=== PATIENT | female | born 1945 ===

== ENCOUNTER 2018-05-10 13:31 | Inpatient (IN) | payer MEDICARE, OTHER ==
[2018-05-10 13:55] VITALS: BMI 29.2
--- NOTE | 2018-05-10 14:09 | ED PDOC ---
Arrival/HPI - General Time Seen by Provider: 05/10/18 13:32 Historian: Patient - History of Present Illness Narrative History of Present Illness (Text): 05/10/18 14:00 72 year old female, whose past medical history includes, presents to the emergency department complaining of right shoulder pain s/p falling yesterday. Patient says she fell backwards yesterday, due to her legs giving out, and hurt her right shoulder. Denies head trauma or LOC. She notes that she has a chronic issue with her legs that has been worsening, she says her legs are not focally weak, but she gets tired after ambulating on them for a long time. Patient reports being treated by Dr. Clarke for iron deficiency/ anemia. She denies any weakness, numbness, or a tingling sensation in her legs. She denies fevers, chills, headache, dizziness, chest pain, shortness of breath, dyspnea on exertion, cough, abdominal pain, nausea, vomiting, diarrhea, back pain, neck pain, or any other complaint. PMD Dr. Brady 05/10/18 17:28 Time/Duration: 24 hours Symptom Course: Unchanged Activities at Onset: Light Context: Home Past Medical History - Provider Review Nursing Documentation Reviewed: Yes - Infectious Disease Hx of Infectious Diseases: None - Tetanus Immunization Tetanus Immunization: Unknown - Cardiac Hx Cardiac Disorders: Yes (A fib) Hx Congestive Heart Failure: Yes Hx Hypertension: Yes - Pulmonary Hx Respiratory Disorders: Yes Hx Asthma: Yes Hx Pneumonia: Yes Hx Respiratory Tract Infection: Yes - Neurological Hx Neurological Disorder: No - HEENT Hx HEENT Disorder: Yes (eyeglasses) - Renal Hx Renal Disorder: No - Endocrine/Metabolic Hx Diabetes Mellitus Type 2: Yes Hx Hypothyroidism: Yes - Hematological/Oncological Hx Blood Disorders: No - Integumentary Hx Dermatological Disorder: Yes Other/Comment: healed mid abd wound, right abd hernia noted,ble +1 edema dry discolored skin multiple scabs and discolorations and variscosities - Musculoskeletal/Rheumatological Hx Falls: No - Gastrointestinal Hx Gastrointestinal Disorders: Yes (ABDOMINAL PAIN,HERNIO RHAPPHY,CHOLEYCYSTECTOMY) Hx Gastroesophageal Reflux: Yes Other/Comment: pt has another right abd hernia no sx due to risk from afib - Genitourinary/Gynecological Hx Genitourinary Disorders: No Hx Urinary Tract Infection: Yes - Psychiatric Hx Substance Use: No - Surgical History Hx Cholecystectomy: Yes Other/Comment: abdominal hernia repair,defibrillator - Anesthesia Hx Anesthesia: Yes Hx Anesthesia Reactions: No Hx Malignant Hyperthermia: No - Suicidal Assessment Feels Threatened In Home Enviroment: No Family/Social History - Physician Review Nursing Documentation Reviewed: Yes Family/Social History: No Known Family HX Smoking Status: Smoker Currrent Status Unknown Hx Alcohol Use: No Hx Substance Use: No Hx Substance Use Treatment: No Allergies/Home Meds Allergies/Adverse Reactions: Allergies kiwi Allergy (Verified 05/10/18 13:55) CONGESTION poppyseed oil Allergy (Verified 05/10/18 13:55) RASH shellfish derived Allergy (Verified 05/10/18 13:55) ANAPHYLAXIS Home Medications: Home Meds Medication Instructions Recorded Confirmed Warfarin Sodium [Jantoven] 3 mg PO .THREE TIMES A WEEK 11/18/11 05/10/18 Tramadol HCl/Acetaminophen 1 tab PO QID PRN 11/05/14 05/10/18 [Tramadol-Acetaminophn 37.5-325] Warfarin Sodium [Coumadin] 4 mg PO .TUESDAY TO Tuesday11/05/14 05/10/18 Digoxin 250 mcg PO DAILY 11/08/14 05/10/18 Losartan [Cozaar] 100 mg PO DAILY 11/08/14 05/10/18 Metoprolol Succinate [Toprol Xl] 50 mg PO BRKDIN 01/05/15 05/10/18 Aspirin [Ecotrin] 81 mg PO DAILY 09/03/15 05/10/18 Metformin HCl [Glucophage] 500 mg PO BID 09/03/15 05/10/18 Omeprazole [Prilosec] 40 mg PO DAILY 09/03/15 05/10/18 Simvastatin 20 mg PO DAILY 09/03/15 05/10/18 Donepezil [Aricept] 10 mg PO HS 05/10/18 05/10/18 FLUoxetine [Prozac] 10 mg PO DAILY 05/10/18 05/10/18 Insulin Glargine,Hum.rec.anlog 40 unit SC BID 05/10/18 05/10/18 [Delia Martinez] Insulin Lispro [Humalog Kwikpen 10 unit SC TID 05/10/18 05/10/18 U-100] Review of Systems - Review of Systems Constitutional: absent: Fevers Eyes: absent: Vision Changes Respiratory: absent: SOB, Cough Cardiovascular: absent: Chest Pain Gastrointestinal: absent: Abdominal Pain, Diarrhea, Nausea, Vomiting Genitourinary Female: absent: Dysuria Musculoskeletal: Other (right shoulder pain ). absent: Back Pain, Neck Pain Skin: absent: Rash Neurological: absent: Headache, Dizziness Psychiatric: absent: Anxiety Physical Exam Vital Signs Reviewed: Yes Vital Signs Temp Pulse Resp BP Pulse Ox 05/10/18 13:52 97.5 F L 77 14 136/68 100 Temperature: Afebrile Blood Pressure: Normal Pulse: Regular Respiratory Rate: Normal Appearance: Positive for: Well-Appearing, Non-Toxic, Comfortable Pain Distress: None Mental Status: Positive for: Alert and Oriented X 3 - Systems Exam Head: Present: Atraumatic, Normocephalic Pupils: Present: PERRL Extroacular Muscles: Present: EOMI Conjunctiva: Present: Normal Mouth: Present: Moist Mucous Membranes Neck: Present: Normal Range of Motion Respiratory/Chest: Present: Clear to Auscultation, Good Air Exchange. No: Respiratory Distress, Accessory Muscle Use Cardiovascular: Present: Normal S1, S2, Other (irregularly irregular). No: Murmurs Abdomen: No: Tenderness, Distention, Peritoneal Signs Back: Present: Normal Inspection. No: Midline Tenderness Upper Extremity: Present: Tenderness (right shoulder tenderness). No: Cyanosis, Edema, Normal ROM (decresed ROM to her right shoulder ) Lower Extremity: Present: Other (decreased 4/5 strength bilaterlally lower extremity). No: Edema Neurological: Present: GCS=15, CN II-XII Intact, Speech Normal, Other (ambulated into stretcher) Skin: Present: Warm, Dry, Normal Color. No: Rashes Psychiatric: Present: Alert, Oriented x 3, Normal Insight, Normal Concentration Medical Decision Making ED Course and Treatment: 05/10/18 14:12 Impression: 72 year old female who presents to the emergency department complaining of right shoulder pain. Plan: -- Labs -- Shoulder X-ray -- Reassess and disposition Prior Visits: Notes and results from previous visits were reviewed. Progress Notes: 05/10/18 17:12 Shoulder xray negative. Patient reports 2 month history of worsening fatigue when ambulating. Spoke to Dr. Dejesus and Dr. Clarke. Requesting observation and neuro evaluation. 05/10/18 17:14 Shoulder X-ray reviewed, shows: IMPRESSION: Normal radiographs of the right shoulder. 05/10/18 18:38 - Lab Interpretations I have reviewed the lab results: Yes - Scribe Statement The provider has reviewed the documentation as recorded by the Scribe Halle Galvez Provider Scribe Attestation: All medical record entries made by the Scribe were at my direction and personally dictated by me. I have reviewed the chart and agree that the record accurately reflects my personal performance of the history, physical exam, medical decision making, and the department course for this patient. I have also personally directed, reviewed, and agree with the discharge instructions and disposition. Disposition/Present on Arrival - Present on Arrival Any Indicators Present on Arrival: No History of DVT/PE: No History of Uncontrolled Diabetes: No Urinary Catheter: No History Surgical Site Infection Following: None - Disposition Have Diagnosis and Disposition been Completed?: Yes Diagnosis: Fall Disposition: HOSPITALIZED Disposition Time: 17:18 Patient Plan: Observation Patient Problems: Current Active Problems Problem Status Onset Fall Acute Condition: FAIR
[2018-05-10 16:01] LABS: BASO # 0.01 K/mm3 (0.0-2.0); BASO % 0.2 % (0.0-3.0); EOS # 0.1 (0.0-0.7); EOS % 1.1 % (1.5-5.0); GRAN # 3.06 (1.4-6.5); GRAN % 69.8 % (50.0-68.0); HEMOGLOBIN 10.9 g/dL (12.0-16.0); LYMPH % 22.1 % (22.0-35.0); MEAN CORPUSCULAR HEMOGLOBIN 27.7 pg (25.0-35.0); MEAN CORPUSCULAR HGB CONC 32.5 g/dl (31.0-37.0); MONO # 0.3 (0.1-0.6); MONO % 6.8 % (1.0-6.0); RBC 3.94 10^6/uL (3.5-6.1); RED CELL DISTRIBUTION WIDTH 15.8 % (11.5-14.5); WHITE BLOOD COUNT 4.4 10^3/uL (4.5-11.0)
[2018-05-10 16:11] LABS: ALBUMIN 3.5 g/dL (3.0-4.8); ALT/SGPT 39 U/L (7-56); AST/SGOT 41 U/L (14-36); BLOOD UREA NITROGEN 17 mg/dL (7-21); CALCIUM 10.3 mg/dL (8.4-10.5); GFR NON-AFRICAN AMERICAN > 60
--- NOTE | 2018-05-10 17:08 | RAD ---
Date of service: 05/10/2018 PROCEDURE: Radiographs of the Right Shoulder HISTORY: shoulder pain COMPARISON: No prior. FINDINGS: BONES: Normal. No fracture. JOINTS: Normal. Glenohumeral and acromioclavicular joints preserved. No osteoarthritis. SOFT TISSUES: Normal. OTHER FINDINGS: None. IMPRESSION: Normal radiographs of the right shoulder.
[2018-05-10 18:53] LABS: INR 2.59; PROTHROMBIN TIME 30.1 SECONDS (9.4-12.5)
--- NOTE | 2018-05-10 21:45 | HP ---
DATE OF EXAM: 05/10/2018 HISTORY OF PRESENT ILLNESS: The patient is a 72-year-old who was seen by Dr. Clarke and she is being followed by her for her anemia, iron infusion. The patient states that yesterday when she went home, she felt very weak and she fell at home because her legs felt very weak and she lost her balance and she fell on the right side of her body and since then her right shoulder is hurting. She does complain of generalized weakness more so in the legs. PAST MEDICAL HISTORY: The patient's significant past medical history of: 1. Hypertension. 2. Chronic AFib. 3. History of morbid obesity. 4. Mediastinal lymphadenopathy, had CT-guided biopsy was unremarkable for malignancy. 5. History of cardiac cirrhosis. 6. Chronic anemia. PAST SURGICAL HISTORY: Significant for: 1. Partial small bowel resection. 2. Status post cholecystectomy. 3. History of ventral hernia repair. ALLERGIES: SHE IS ALLERGIC TO POPPY SEEDS, KIWI, AND SHELLFISH. MEDICATIONS AT HOME: She is on simvastatin 20 mg daily, Prilosec 40 daily, and donepezil 10 mg at bedtime. She is on , Prozac 10 mg daily, aspirin 81 daily, Coumadin 3 mg three times a week, tramadol one tablet every 6 hours, metoprolol 50 mg twice a day, metformin 500 twice a day, losartan 100 daily, and Coumadin 4 mg four times a week. SOCIAL HISTORY: She used to smoke, not anymore and does not drink. PHYSICAL EXAMINATION: GENERAL: She is awake, alert, oriented, and communicative. VITAL SIGNS: She is afebrile, pulse 77, respirations 14, and blood pressure 136/58. LUNGS: Bilateral fair airflow. No rhonchi or crackles. HEART: S1 and S2 audible. ABDOMEN: Soft and nontender. No rebound. No guarding. NEUROLOGIC: The patient is awake and alert, able to communicate. Has generalized weakness, but no focal deficit. No motor or sensory deficits. LABORATORY DATA: WBC is 4.4, hemoglobin 10.9, hematocrit 33.5, and platelets 72. Chemistry; sodium 138, potassium 4.5, chloride 101, CO2 of 26, BUN 17, creatinine 0.6, and blood sugar of 59. ASSESSMENT: 1. Status post fall. 2. Generalized weakness probably secondary to deconditioning. 3. Hypertension. 4. Insulin-dependent diabetes. 5. Hyperlipidemia. 6. Thrombocytopenia. 7. History of mediastinal lymphadenopathy. 8. Right shoulder contusion. PLAN: We will place the patient in observation. Dr. Lee to evaluate her shoulder and I will order for MRI of lumbosacral spine. Neuro consult by Dr. Phillips has been requested. We will monitory blood sugar. Start physical therapy. We will reevaluate in a.m. Olvin Dejesus MD
[2018-05-11] MEDS: Insulin Lispro (humaLOG) MEDIUM Coverage SC SCH ×5 (05:01→22:21)
--- NOTE | 2018-05-11 08:07 | CT ---
Date of service: 05/10/2018 PROCEDURE: CT HEAD WITHOUT CONTRAST. HISTORY: s/p fall COMPARISON: None available. TECHNIQUE: Axial computed tomography images were obtained through the head/brain without intravenous contrast. Radiation dose: Total exam DLP = 836.93 mGy-cm. This CT exam was performed using one or more of the following dose reduction techniques: Automated exposure control, adjustment of the mA and/or kV according to patient size, and/or use of iterative reconstruction technique. FINDINGS: HEMORRHAGE: No intracranial hemorrhage. BRAIN: No mass effect or edema. Mild atrophy and microvascular changes VENTRICLES: Unremarkable. No hydrocephalus. CALVARIUM: Unremarkable. PARANASAL SINUSES: Unremarkable as visualized. No significant inflammatory changes. MASTOID AIR CELLS: Unremarkable as visualized. No inflammatory changes. OTHER FINDINGS: The report concurs with the preliminary [facility] report IMPRESSION: No acute intracranial findings
[2018-05-11] MEDS: Metoprolol Succinate 50 mg XL Tab PO SCH ×2 (08:59→17:37)
[2018-05-11] MEDS ORDERED: DIGOXIN 250 MCG PO SCH (10:00)
[2018-05-11] MEDS ORDERED: Non Formulary Medication (Simvastatin [Simvastatin] 20 MG) PO SCH (10:00)
--- NOTE | 2018-05-11 12:36 | CP.PCM.PCO ---
Physician Communication Note - Physician Communication Note Physician Communication Note: no HD access at this time as per Dr. Oneal. Dr. Mcneal and RN is aware
[2018-05-11] MEDS: Digoxin 250 mcg (0.25 mg) Tab PO SCH (14:24)
--- NOTE | 2018-05-11 14:42 | CP.PCM.PCO ---
Physician Communication Note - Physician Communication Note Physician Communication Note: PT recommended TCU CM/SW for D/C planning
--- NOTE | 2018-05-11 18:47 | PN ---
DATE: 05/11/2018 SUBJECTIVE: The patient is a 72-year-old complain of generalized weakness, decreased strength in her both legs, probably diabetic neuropathy, status post fall yesterday injuring her right shoulder, and complain of pain in lifting her arm. No focal deficit noted. PHYSICAL EXAMINATION: GENERAL: She is awake, alert, oriented and communicative. VITAL SIGNS: She is afebrile, pulse 70, respirations 20, and blood pressure . LUNGS: Bilateral fair airflow. No rhonchi or crackles. HEART: S1 and S2 audible. ABDOMEN: Soft, obese and nontender. No rebound. No guarding. NEUROLOGIC: She is awake, alert, and able to communicate. EXTREMITIES: Moves all extremities. Has difficulty walking. Has generalized weakness. Right shoulder has limited extension and abduction. LABORATORY DATA: Her blood sugar is 131. Her PT 30.1. INR 2.59. CT scan of the head was done that shows no acute intracranial abnormality. ASSESSMENT: 1. Status post fall. 2. Right shoulder, probably sprain, x-ray negative for fracture. 3. Chronic atrial fibrillation, on Coumadin. 4. Status post defibrillator placement. 5. Chronic anemia. 6. Mej-dxzegjw-njvbyuivx diabetes. PLAN: The patient has generalized weakness. Has multiple fall at home. High risk for discharge home because of fall history and generalized weakness, was evaluated by physical therapist, need rehab, need to go to TCU. We will continue to monitor blood sugar. We will follow up in a.m. Olvin Dejesus MD
--- NOTE | 2018-05-12 01:11 | CP.PCM.CON ---
History of Present Illness - History of Present Illness History of Present Illness: Pt. is a 72 year old female, well known to me from office. called to let me know that she fell at home. Advised to bring her to ER. She has history of anemia. Hepatosplenomegaly. She complained of backpain and weakness both legs for past few weeks. She is unable to stand sometime. feels weak. No bladder bowel disturbance. Review of Systems - Constitutional Constitutional: As Per HPI - EENT Eyes: absent: As Per HPI, Blind Spots, Blurred Vision, Change in Vision, Decreased Night Vision, Diplopia, Discharge, Dry Eye, Exophthalmos, Floaters, Irritation, Itchy Eyes, Loss of Peripheral Vision, Pain, Photophobia, Requires Corrective Lenses, Sees Flashes, Spots in Vision, Tunnel Vision, Other Visual Disturbances, Loss of Vision, Other - Breasts Breasts: absent: As Per HPI, Change in Shape, Mass, Pain, Nipple Discharge, Nipple Inversion, Skin Changes, Swelling, Other - Cardiovascular Cardiovascular: absent: As Per HPI, Acrocyanosis, Chest Pain, Chest Pain at Rest, Chest Pain with Activity, Claudication, Diaphoresis, Dyspnea, Dyspnea on Exertion, Edema, Irregular Heart Rhythm, Pain Radiating to Arm/Neck/Jaw, Leg Edema, Leg Ulcers, Lightheadedness, Orthopnea, Palpitations, Paroxysmal Nocturnal Dyspnea, Pedal Edema, Radiating Pain, Rapid Heart Rate, Slow Heart Rate, Syncope, Other - Respiratory Respiratory: absent: As Per HPI, Cough, Dyspnea, Hemoptysis, Dyspnea on Exertion, Wheezing, Snoring, Stridor, Pain on Inspiration, Chest Congestion, Excessive Mucous Production, Change in Mucous Color, Pain with Coughing, Other - Gastrointestinal Gastrointestinal: absent: As Per HPI, Abdominal Pain, Belching, Bloating, Change in Bowel Habits, Change in Stool Character, Coffee Ground Emesis, Constipation, Cramping, Diarrhea, Dyspepsia, Dysphagia, Early Satiety, Excessive Flatus, Fecal Incontinence, Heartburn, Hematemesis, Hematochezia, Loose Stools, Melena, Nausea, Odynophagia, Temesmus, Vomiting, Other - Musculoskeletal Musculoskeletal: As Per HPI - Neurological Neurological: absent: As Per HPI, Abnormal Gait, Abnormal Hearing, Abnormal Movements, Abnormal Speech, Behavioral Changes, Burning Sensations, Confusion, Convulsions, Disequilibrium, Dizziness, Numbness, Focal Weakness, Frequent Falls, Headaches, Lack of Coordination, Loss of Vision, Memory Loss, Paresthes ias, Radicular Pain, Restless Legs, Sensory Deficit, Syncope, Tingling, Tremor, Vertigo, Weakness, Other Visual Disturbances, Other - Endocrine Endocrine: absent: As Per HPI, Change in Body Appearance, Change in Libido, Cold Intolorance, Deepening of Voice, Excessive Sweating, Fatigue, Flushing, Heat Intolorance, Increase in Ring/Shoe/Hat Size, Palpitations, Polydipsia, Polyphagia, Polyuria, Other - Hematologic/Lymphatic Hematologic: As Per HPI Past Patient History - Infectious Disease Hx of Infectious Diseases: None - Tetanus Immunizations Tetanus Immunization: Unknown - Past Social History Smoking Status: Never Smoked - CARDIAC Hx Cardiac Disorders: Yes (A fib) Hx Congestive Heart Failure: Yes Hx Hypertension: Yes - PULMONARY Hx Respiratory Disorders: Yes Hx Asthma: Yes Hx Pneumonia: Yes Hx Respiratory Tract Infection: Yes - NEUROLOGICAL Hx Neurological Disorder: No - HEENT Hx HEENT Problems: Yes (eyeglasses) - RENAL Hx Chronic Kidney Disease: No - ENDOCRINE/METABOLIC Hx Diabetes Mellitus Type 2: Yes Hx Hypothyroidism: Yes - HEMATOLOGICAL/ONCOLOGICAL Hx Blood Disorders: No - INTEGUMENTARY Hx Dermatological Problems: Yes Other/Comment: healed mid abd wound, right abd hernia noted,ble +1 edema dry discolored skin multiple scabs and discolorations and variscosities - MUSCULOSKELETAL/RHEUMATOLOGICAL Hx Falls: No - GASTROINTESTINAL Hx Gastrointestinal Disorders: Yes (ABDOMINAL PAIN,HERNIORHAPP HY,CHOLEYCYSTECTOMY) Hx Gastroesophageal Reflux: Yes Other/Comment: pt has another right abd hernia no sx due to risk from afib - GENITOURINARY/GYNECOLOGICAL Hx Genitourinary Disorders: No Hx Urinary Tract Infection: Yes - PSYCHIATRIC Hx Psychophysiologic Disorder: Yes Hx Anxiety: Yes - SURGICAL HISTORY Hx Cholecystectomy: Yes Other/Comment: abdominal hernia repair,defibrillator - ANESTHESIA Hx Anesthesia: Yes Hx Anesthesia Reactions: No Hx Malignant Hyperthermia: No Meds Allergies/Adverse Reactions: Allergies Allergy/AdvReac Type Severity Reaction Status Date / Time kiwi Allergy CONGESTION Verified 05/10/18 13:55 poppyseed oil Allergy RASH Verified 05/10/18 13:55 shellfish derived Allergy ANAPHYLAXIS Verified 05/10/18 13:55 - Medications Medications: Current Medications Aspirin (Ecotrin) 81 mg PO DAILY [facility] Last Admin: 05/11/18 11:11 Dose: 81 mg Atorvastatin Calcium (Lipitor) 10 mg PO DIN [facility] Last Admin: 05/11/18 17:36 Dose: 10 mg Digoxin (Lanoxin) 0.25 mg PO 1400 [facility] Last Admin: 05/11/18 14:24 Dose: 0.25 mg Donepezil HCl (Aricept) 10 mg PO HS [facility] Last Admin: 05/11/18 22:22 Dose: 10 mg Fluoxetine HCl (Prozac) 10 mg PO DAILY [facility] Last Admin: 05/11/18 11:11 Dose: 10 mg Insulin Human Lispro (Humalog Med) 0 units SC ACHS [facility]; Protocol Last Admin: 05/11/18 22:21 Dose: Not Given Metformin HCl (Glucophage) 500 mg PO BID [facility] Last Admin: 05/11/18 17:36 Dose: 500 mg Methylprednisolone Acetate (Depo-Medrol) 80 mg INJ ONCE ONE Stop: 05/12/18 08:01 Metoprolol Succinate (Toprol Xl) 50 mg PO BRKDIN [facility] Last Admin: 05/11/18 17:37 Dose: 50 mg Warfarin Sodium (Coumadin) 4 mg PO .TUESDAY TO TUESDAY [facility]; Protocol Physical Exam - Constitutional Appears: Well, Non-toxic - Head Exam Head Exam: ATRAUMATIC, NORMAL INSPECTION, NORMOCEPHALIC - Eye Exam Pupil Exam: NORMAL ACCOMODATION - Neck Exam Neck exam: Positive for: Normal Inspection - Respiratory Exam Respiratory Exam: Clear to Auscultation Bilateral, NORMAL BREATHING PATTERN - GI/Abdominal Exam GI & Abdominal Exam: Normal Bowel Sounds, Soft - Extremities Exam Extremities exam: Positive for: normal inspection - Back Exam Back exam: NORMAL INSPECTION - Neurological Exam Neurological exam: Alert, CN II-XII Intact, Normal Gait, Oriented x3 - Skin Skin Exam: Normal Color, Warm Results - Vital Signs Recent Vital Signs: Last Vital Signs Temp 98.6 F 05/11/18 22:46 Pulse 84 05/11/18 22:46 Resp 18 05/11/18 22:46 BP 108/57 L 05/11/18 22:46 Pulse Ox 98 05/11/18 22:46 - Labs Result Diagrams: 05/10/18 15:50 05/10/18 15:50 Labs: Laboratory Results - last 24 hr 05/10/18 05/11/18 05/11/18 19:19 08:46 11:19 POC Glucose (mg/dL) 112 H 71 131 H 05/11/18 05/11/18 16:32 21:16 POC Glucose (mg/dL) 194 H 128 H Assessment & Plan - Assessment and Plan (Free Text) Assessment: 1. Chronic anemia . iron deficiency. S/P IV iron. Hb/hct stable. She has hepatosplenomegaly. Refused bone marrow exam.Xray Blood counts stable now. 2. New onset back pain with b/l lower ext. weakness. H/o fall . CT lumbar spine without contrast. 3. XRay no fracture left shoulder. 4. A-Fib on anticoagulation. - Date & Time Date: 05/10/18 Time: 18:00
[2018-05-12] MEDS ORDERED: MethylPREDNISolone Depo 80 mg/ml (5 ml) Inj INJ ONE (08:00)
[2018-05-12] MEDS: Insulin Lispro (humaLOG) MEDIUM Coverage SC SCH ×4 (08:30→21:21)
[2018-05-12] MEDS: Metoprolol Succinate 50 mg XL Tab PO SCH ×2 (08:30→17:09)
[2018-05-12] MEDS ORDERED: Bupivacaine 0.5% Inj(30mL) IJ ONE (08:33)
[2018-05-12] MEDS ORDERED: MethylPREDNISolone Depo 40 mg/ml Inj IM ONE (08:33)
--- NOTE | 2018-05-12 09:35 | CT ---
Date of service: 05/12/2018 PROCEDURE: CT Lumbar Spine without contrast HISTORY: back pain , b/l leg pain COMPARISON: None available. TECHNIQUE: Axial computed tomography images were obtained of the lumbar spine without the use of intravenous contrast. Coronal and sagittal reformatted images were created and reviewed. Radiation dose: Total exam DLP = 894.89 mGy-cm. This CT exam was performed using one or more of the following dose reduction techniques: Automated exposure control, adjustment of the mA and/or kV according to patient size, and/or use of iterative reconstruction technique. FINDINGS: VERTEBRAE: Unremarkable. No fracture. Normal alignment. DISCS/SPINAL CANAL/NEURAL FORAMINA: Multilevel calcified disc bulging is noted at L1-2, L2-3, L3-4, as well as at L4-5 and L5-S1 with thecal sac indentation. Facet arthropathy contributes to central canal stenosis at L4-5. Bilateral inferior foraminal encroachment at L4-5. PARASPINAL SOFT TISSUES: Unremarkable. OTHER FINDINGS: None. IMPRESSION: Multilevel calcified disc bulging with central canal stenosis at L4-5.
[2018-05-12 10:10] LABS: BASO # 0.01 K/mm3 (0.0-2.0); BASO % 0.2 % (0.0-3.0); EOS # 0.1 (0.0-0.7); GRAN # 2.92 (1.4-6.5); GRAN % 65.1 % (50.0-68.0); HEMOGLOBIN 10.4 g/dL (12.0-16.0); LYMPH # 1.1 (1.2-3.4); LYMPH % 23.6 % (22.0-35.0); MEAN CELL VOLUME 85.7 fl (80.0-105.0); MEAN CORPUSCULAR HEMOGLOBIN 27.5 pg (25.0-35.0); MEAN CORPUSCULAR HGB CONC 32.1 g/dl (31.0-37.0); MEAN PLATELET VOLUME 10.7 fl (7.0-11.0); MONO # 0.4 (0.1-0.6); MONO % 9.1 % (1.0-6.0); RBC 3.78 10^6/uL (3.5-6.1); RED CELL DISTRIBUTION WIDTH 15.9 % (11.5-14.5); WHITE BLOOD COUNT 4.5 10^3/uL (4.5-11.0)
[2018-05-12 10:15] LABS: INR 1.75; PROTHROMBIN TIME 20.4 SECONDS (9.4-12.5)
--- NOTE | 2018-05-12 13:29 | CON ---
DATE: 05/12/2018 HISTORY OF PRESENT ILLNESS: A 72-year-old female, in room 567, bed 1 with right shoulder pain. She says she fell in the street a couple of days ago, injured her right shoulder which had preexisting osteoarthritis. X-ray showed significant osteoarthritis AC joint with osteophyte formation and subacromial impingement with a subacromial spur and , so examination showed restrictive range of motion because of pain and tenderness to the AC joint and subacromial joint, so I explained to her the benefits of Depo-Medrol injection, cortisone to help release some of the inflammation. If that does not work, she may need to have excision of the arthritic AC joint on an elective basis, so I injected the right shoulder primarily AC joint in subacromial space with Depo-Medrol marking. We will see how she does. Hopefully, we can follow up as an outpatient. In the meantime, we will avoid a sling as that will create stiffness in gentle range of motion. Likely, follow her up in the office if need be. Charan Lee DO MTDJose Enrique
[2018-05-12] MEDS: Digoxin 250 mcg (0.25 mg) Tab PO SCH (14:25)
--- NOTE | 2018-05-12 14:27 | CP.PCM.PCO ---
Physician Communication Note - Physician Communication Note Physician Communication Note: patient cleared for TCU on Sun., 04/14/18
--- NOTE | 2018-05-12 15:37 | PN ---
DATE: 05/12/2018 SUBJECTIVE: The patient is 72-year-old, seen and examined. Complained of right shoulder pain, little bit better than yesterday. Had intraarticular injection given by Dr. Lee. PHYSICAL EXAMINATION VITAL SIGNS: She is afebrile. Pulse 91, respirations 18 and blood pressure 98/55. LUNGS: Bilateral fair airflow. No rhonchi or crackle. HEART: S1 and S2 audible. ABDOMEN: Soft, obese, and nontender. No rebound. No guarding. NEUROLOGICAL: She is awake, alert, oriented, and communicative. EXTREMITIES: Bilateral legs, no edema. LABORATORY DATA: WBC 4.5, hemoglobin 10.4, hematocrit 32.4, and platelets 70. PT 20.4 and INR 1.75. Chemistry; blood sugar is 135. ASSESSMENT: 1. Status post fall. 2. Bilateral leg weakness, had a lumbar CT scan done that shows multilevel calcified bulging disc, central canal stenosis in L4 and L5. 3. Chronic atrial fibrillation. 4. Mediastinal lymphadenopathy. 5. Chronic anemia. 6. Hypertension. 7. Coronary artery disease. 8. Cardiac stenosis. PLAN: We will give her clonidine 5 mg today. Continue physical therapy. We will monitor blood sugar. She is on statins. We will continue beta-adelfo. So plan is, the patient will continue these medications. TCU evaluation has been requested and the patient will be transferred to TCU as soon as bed is available. Olvin Dejesus MD
--- NOTE | 2018-05-12 17:48 | CON ---
DATE: 05/12/2019 HISTORY OF PRESENT ILLNESS: This is a 72-year-old female with past medical history of hypertension, chronic AFib, and chronic anemia, came to hospital because she felt very weak and fell at home. Legs were weak and lost her balance to the right side and hit right shoulder. CAT scan of the head was done which was reported negative. CAT scan of lumbosacral spine shows spinal stenosis at L4-L5. Call to evaluate the patient. PAST MEDICAL HISTORY: Hypertension, chronic AFib and chronic anemia. The patient also has a past medical history of diabetes and dementia forgetfulness. PAST SURGICAL HISTORY: Status post small bowels resections, status post cholecystectomy and hernia repair. ALLERGIES: TO POPPY SEEDS, KIWI AND SHELLFISH. HOME MEDICATIONS: Simvastatin, Prilosec, Aricept, Prozac, aspirin, Coumadin, metoprolol, tramadol and metformin. PHYSICAL EXAMINATION HEENT: Normocephalic, atraumatic. NECK: Supple. NEUROLOGIC: Awake, alert, oriented to self, cranial nerve, not to time. Cranial nerve II-XII were tested. Pupil reactive. Status post thyroidectomy. No facial asymmetry. Tongue midline. Motor examination: Spontaneous movement of all the extremities noted except right shoulder pain secondary to fall. Deep tendon reflexes are 1+, plantar is downgoing, sensory intact. Cerebellar gait . IMPRESSION: A 72-year-old female with past medical history of hypertension, chronic atrial fibrillation, chronic anemia, diabetes and spinal stenosis. CAT scan of the head was negative. CAT scan of the villus spine shows spinal stenosis at L4-L5. Agree with anemia, treatment and gait training, physical therapy. Continue present management. We will follow up. Bong Phillips MD (Delete this signature block when dictator is a preceptor.)
--- NOTE | 2018-05-13 00:10 | PN ---
DATE: 05/12/2018 FOLLOWUP NOTE SUBJECTIVE: She is comfortably sitting in chair, in no acute distress. Back pain decreased. She has a history of chronic back pain, radiating to the leg. She is also complaining of bilateral leg weakness. CT lumbar spine ordered showed degenerative changes and disk bulges at multiple levels. Neurology consultation with Dr. Phillips has been requested. She is currently undergoing physical therapy. She has a history of anemia, iron deficiency and is status post IV iron. Denies any symptoms overnight. REVIEW OF SYSTEMS: As per HPI. Rest of 12-point review of systems reviewed negative. PHYSICAL EXAMINATION: GENERAL: Comfortable in bed, in no acute distress. VITAL SIGNS: Temperature 98.7, heart rate 80 per minute, blood pressure 120/70. HEENT: Pallor positive. NECK: No lymphadenopathy. CHEST: Air entry present and equal bilateral. No added sounds. CARDIOVASCULAR: S1 and S2 normal. No murmur. No gallop. ABDOMEN: Soft, nontender. No hepatosplenomegaly. Obese. Bilateral, 1+ edema. LABORATORY DATA: White count 4.4, hemoglobin 10.9, hematocrit 33.5, platelet 72. Sodium 138, potassium 4.5, BUN 17, creatinine 0.6, glucose 59. ASSESSMENT AND PLAN: 1. Chronic anemia. 2. Back pain and lower extremity weakness. 3. . 4. Atrial fibrillation, on anticoagulation. 5. Mediastinal lymphadenopathy. PLAN: She is currently participating in physical therapy. Hemoglobin and hematocrit have been stable. CT lumbar spine did not show cord compression or acute pathology, chronic degenerative disk disease. She might have radiculopathy. Neurology consultation with Dr. Phillips is requested. Currently on Coumadin with therapeutic INR. Chronic anemia, status post IV iron. Hemoglobin has been stable at 10.4. Thank you Dr. Dejesus for allowing us to participate in Kailey's care. Maura Clarke MD
[2018-05-13] MEDS: Insulin Lispro (humaLOG) MEDIUM Coverage SC SCH ×4 (07:52→21:03)
[2018-05-13] MEDS: Metoprolol Succinate 50 mg XL Tab PO SCH ×2 (08:13→17:37)
--- NOTE | 2018-05-13 13:27 | PN ---
FOLLOWUP NOTE DATE: 05/13/2018 SUBJECTIVE: She is comfortable in bed in no acute distress. Back pain decreased. CT lumbar spine did show degenerative disc disease at multiple levels. She was evaluated by physical therapy. She is awaiting bed at Transitional Care Unit for gait improvement. She has chronic anemia. Status post IV iron. Denies any pain, fatigue improved. REVIEW OF SYSTEM: As per HPI. Rest of 12-point review of systems reviewed negative. PHYSICAL EXAMINATION: GENERAL: Comfortable in bed, in no acute distress. VITAL SIGNS: Temperature 97.9, heart rate 70 per minute, blood pressure 123/62, respiratory rate 20 per minute and oxygen saturation 98% on room air. HEENT: Pallor positive. NECK: No lymphadenopathy. CHEST: Air entry present and equal, bilateral. No added sounds. CARDIOVASCULAR: S1 and S2, normal. No murmur. No gallop. ABDOMEN: Soft and nontender. Obese. EXTREMITIES: No edema. Her spine nontender. CENTRAL NERVOUS SYSTEM: Alert, oriented x3. No focal sensory or motor deficit. LABORATORY DATA: White count 4.5, hemoglobin 10.4, hematocrit 32.4 and platelets 70. Glucose 134. MEDICATIONS: Aspirin 81 mg daily, Lipitor 10 mg daily, Digoxin 0.25 mg daily, Aricept 10 mg daily, Prozac 10 mg daily, metformin 50 mg p.o. b.i.d., Coumadin 5 mg daily and metoprolol 50 mg daily. ASSESSMENT: 1. Anemia. 2. Thrombocytopenia. 3. Chronic back pain, degenerative disc disease. 4. Hepatosplenomegaly. 5. Mediastinal lymphadenopathy. PLAN: Hemoglobin and hematocrit are stable. Thrombocytopenia is stable. She has hepatosplenomegaly undiagnosed, the reason likely fatty liver. She has mediastinal lymphadenopathy biopsied previously, which was found to be reactive. Evaluated by Dr. Phillips yesterday for back pain and leg weakness. Note reviewed. Degenerative disc disease, physical therapy. We will be continued in Transitional Care Unit. Maura Clarke MD
[2018-05-13] MEDS: Digoxin 250 mcg (0.25 mg) Tab PO SCH (13:59)
[2018-05-13] MEDS ORDERED: Petrolatum-Mineral Oil Oint (100gm) TOP SCH (14:15)
[2018-05-13] MEDS: Petrolatum-Mineral Oil Oint (100gm) TOP SCH ×2 (15:54→20:47)
--- NOTE | 2018-05-13 17:57 | CP.PCM.PN ---
Subjective - Date & Time of Evaluation Date of Evaluation: 05/13/18 Time of Evaluation: 17:52 - Subjective Subjective: C/O PAIN IN RT SHOULDER AND GENERALISED WEAKNESS Objective - Vital Signs/Intake and Output Vital Signs (last 24 hours): Temp Pulse Resp BP Pulse Ox 98.5 F 72 17 147/81 82 L 05/13/18 16:41 05/13/18 16:41 05/13/18 16:41 05/13/18 17:39 05/13/18 17:39 - Medications Medications: Current Medications Aspirin (Ecotrin) 81 mg PO DAILY [facility] Last Admin: 05/13/18 09:17 Dose: 81 mg Atorvastatin Calcium (Lipitor) 10 mg PO DIN [facility] Last Admin: 05/13/18 17:37 Dose: 10 mg Digoxin (Lanoxin) 0.25 mg PO 1400 [facility] Last Admin: 05/13/18 13:59 Dose: 0.25 mg Donepezil HCl (Aricept) 10 mg PO HS [facility] Last Admin: 05/12/18 21:24 Dose: 10 mg Fluoxetine HCl (Prozac) 10 mg PO DAILY [facility] Last Admin: 05/13/18 09:17 Dose: 10 mg Insulin Human Lispro (Humalog Med) 0 units SC ACHS [facility]; Protocol Last Admin: 05/13/18 17:36 Dose: 1 units Metformin HCl (Glucophage) 500 mg PO BID [facility] Last Admin: 05/13/18 17:36 Dose: 500 mg Metoprolol Succinate (Toprol Xl) 50 mg PO BRKDIN [facility] Last Admin: 05/13/18 17:37 Dose: 50 mg Multi-Ingredient Ointment (Hydrophor Oint) 0 gm TOP Q6H [facility] Last Admin: 05/13/18 15:54 Dose: 1 applic Warfarin Sodium (Coumadin) 5 mg PO DAILY [facility] Last Admin: 05/13/18 09:17 Dose: 5 mg - Labs Labs: 05/12/18 10:00 05/10/18 15:50 PT 20.4 SECONDS (9.4-12.5) H 05/12/18 10:00 INR 1.75 05/12/18 10:00 APTT 42.0 Seconds (25.1-36.5) H 05/10/18 18:30 - Constitutional Appears: Non-toxic - Head Exam Head Exam: ATRAUMATIC - Eye Exam Eye Exam: Normal appearance - ENT Exam ENT Exam: Mucous Membranes Moist - Neck Exam Neck Exam: Full ROM - Respiratory Exam Respiratory Exam: Clear to Ausculation Bilateral - Cardiovascular Exam Cardiovascular Exam: Irregular Rhythm - GI/Abdominal Exam GI & Abdominal Exam: Normal Bowel Sounds - Extremities Exam Extremities Exam: Normal Capillary Refill, Pedal Edema - Neurological Exam Neurological Exam: Abnormal Gait Neuro motor strength exam: Left Lower Extremity: 4, Right Lower Extremity: 4 Assessment and Plan (1) Diabetes mellitus, insulin dependent (IDDM), uncontrolled Status: Acute (2) Anemia Status: Acute (3) Atrial fibrillation Status: Acute (4) Dizziness Status: Acute (5) Shortness of breath Status: Acute - Assessment and Plan (Free Text) Plan: MONITOR BLOOD SUGAR,CONTINUE PHYSIOTHERAPY PLAN TO SEND TO TCU WHEN BED AVAILABEL
[2018-05-13] MEDS ORDERED: Morphine 2 mg/ml ISec IVP STA (20:29)
[2018-05-13 22:29] VITALS: RESP 18
[2018-05-14] MEDS: Petrolatum-Mineral Oil Oint (100gm) TOP SCH ×2 (04:55→08:21)
[2018-05-14 08:07] VITALS: TEMP 97.4; O2SAT 96
[2018-05-14] MEDS: Metoprolol Succinate 50 mg XL Tab PO SCH ×2 (08:18→16:33)
[2018-05-14] MEDS: Insulin Lispro (humaLOG) MEDIUM Coverage SC SCH ×3 (08:20→16:33)
[2018-05-14 08:56] LABS: INR 1.79; PROTHROMBIN TIME 20.8 SECONDS (9.4-12.5)
--- NOTE | 2018-05-14 12:15 | PN ---
DATE: 05/14/2018 FOLLOWUP NOTE SUBJECTIVE: She is comfortable in bed, in no acute distress. She is undergoing physical therapy, awaiting transitional care unit placement. She has chronic back pain, chronic anemia. Hemoglobin and hematocrit have been stable. She is status post IV iron as an outpatient. Lumbar spine x-ray showed multiple disc bulging degenerative changes. REVIEW OF SYSTEMS: As per HPI. Rest of 12-point review of systems reviewed and negative. PHYSICAL EXAMINATION GENERAL: Comfortable in bed, in no acute distress. VITAL SIGNS: Temperature 98, heart rate is 60 per minute, blood pressure 130/70, respiratory rate 18 per minute, oxygen saturation 95% on room air. HEENT: Pallor positive. NECK: No lymphadenopathy. CHEST: Air entry present and equal bilaterally. No added sound. CARDIOVASCULAR: S1, S2 normal. No murmur. No gallop. ABDOMEN: Soft, nontender. hepatosplenomegaly. EXTREMITIES: No edema. CENTRAL NERVOUS SYSTEM: Alert, oriented x3. No focal sensory or motor deficit. LABORATORY DATA: White count 4.5, hemoglobin 10.4, hematocrit 32.4, platelets 70. MEDICATIONS: Aspirin 81 mg daily, Lipitor 10 mg daily, Digoxin 0.25 mg daily, Aricept 10 mg daily, Prozac 10 mg daily, metoprolol 50 mg daily. ASSESSMENT: 1. Anemia. 2. Thrombocytopenia. 3. Chronic back pain, degenerative disc disease. 4. Hepatosplenomegaly. 5. Mediastinal lymphadenopathy. 6. Diabetes mellitus, type 2. PLAN: Hemoglobin and hematocrit are stable. Thrombocytopenia is stable. Evaluated by Dr. Phillips, note reviewed. Recommended physical therapy, TCU placement awaited. Hepatosplenomegaly, chronic. Mediastinal lymphadenopathy, nonreactive as per lymph node biopsy. Maura Clarke MD
[2018-05-14 12:22] LABS: URINE BILIRUBIN NEGATIVE (NEGATIVE); URINE BLOOD NEGATIVE (NEGATIVE); URINE GLUCOSE (UA) NEGATIVE (NEGATIVE); URINE LEUKOCYTE ESTERASE NEGATIVE Leu/uL (NEGATIVE); URINE PROTEIN NEGATIVE mg/dL (<30 mg/dL); URINE UROBILINOGEN >=8.0 E.U./dL (<1 E.U./dL)
[2018-05-14 12:25] LABS: URINE APPEARANCE CLEAR (CLEAR); URINE COLOR YELLOW (YELLOW)
[2018-05-14] MEDS: Digoxin 250 mcg (0.25 mg) Tab PO SCH (15:08)
[2018-05-14 15:13] VITALS: PULSE 76
[2018-05-14 16:36] VITALS: BP 104/54; PULSE 72
== END 2018-05-14 16:47 | DRG 74 ==
LOC: ED 13:31 → ERH 17:17 → 5RNO 21:14 → OBSVTOIN 05-11 16:07 → 5RNO 05-13 16:38
PROVIDERS: ADMIT Internal Medicine; ATTEND Internal Medicine
PROC: 3E0U33Z Introduction of Anti-inflammatory into Joints, Percutaneous Approach (ICD-10-PCS; principal; 2018-05-12)
DX: E11.40 Type 2 diabetes mellitus with diabetic neuropathy, unspecified (principal); D50.9 Iron deficiency anemia, unspecified; I48.2 Chronic atrial fibrillation; S40.011A Contusion of right shoulder, initial encounter; R53.1 Weakness; D69.6 Thrombocytopenia, unspecified; M19.011 Primary osteoarthritis, right shoulder; M48.061 Spinal stenosis, lumbar region without neurogenic claudication; G89.29 Other chronic pain; M51.36 Other intervertebral disc degeneration, lumbar region; R16.2 Hepatomegaly with splenomegaly, not elsewhere classified; F03.90 Unspecified dementia, unspecified severity, without behavioral disturbance, psychotic disturbance, mood disturbance, and anxiety; I10 Essential (primary) hypertension; I25.10 Atherosclerotic heart disease of native coronary artery without angina pectoris; W01.0XXA Fall on same level from slipping, tripping and stumbling without subsequent striking against object, initial encounter; Y92.009 Unspecified place in unspecified non-institutional (private) residence as the place of occurrence of the external cause; Z79.01 Long term (current) use of anticoagulants; Z79.82 Long term (current) use of aspirin; Z79.4 Long term (current) use of insulin; Z95.810 Presence of automatic (implantable) cardiac defibrillator; Z87.891 Personal history of nicotine dependence

== ENCOUNTER 2018-05-14 16:47 | Inpatient (IN) | payer OTHER ==
[2018-05-14 16:55] VITALS: BMI 30.4
[2018-05-14] MEDS ORDERED: Petrolatum-Mineral Oil Oint (100gm) TOP SCH (17:15)
[2018-05-14] MEDS: Metoprolol Succinate 50 mg XL Tab PO SCH (17:15)
[2018-05-14] MEDS: Insulin Lispro (humaLOG) MEDIUM Coverage SC SCH (22:26)
[2018-05-15] MEDS: Petrolatum-Mineral Oil Oint (100gm) TOP SCH ×4 (05:06→18:27)
[2018-05-15] MEDS: Insulin Lispro (humaLOG) MEDIUM Coverage SC SCH ×4 (06:29→21:29)
[2018-05-15] MEDS: Metoprolol Succinate 50 mg XL Tab PO SCH ×2 (08:24→18:27)
[2018-05-15] MEDS: Digoxin 250 mcg (0.25 mg) Tab PO SCH (14:51)
--- NOTE | 2018-05-15 23:41 | HP ---
DATE OF EXAM: 05/15/2018 HISTORY OF PRESENT ILLNESS: The patient is a 72-year-old who was in her , felt very dizzy, and legs giving. She fell on the right side hurting a right shoulder. She was evaluated by Dr. Lee, who gave her intraarticular injection with some improvement. PAST MEDICAL HISTORY: The patient does have complicated past medical history significant for: 1. Insulin-dependent diabetes. 2. Hypertension. 3. Cardiac cirrhosis. 4. Mediastinal lymphadenopathy for that she is following with Dr. Clarke. 5. Chronic anemia. 6. History of hypertension. 7. Generalized osteoarthritis. 8. Splenomegaly. 9. History of congestive heart failure. PAST SURGICAL HISTORY: Significant for cholecystectomy. ALLERGIES: SHE IS ALLERGIC TO KIWI, POPPY SEEDS AND SHELLFISH DERIVATIVE. MEDICATIONS AT HOME: She is on Coumadin 3 mg three times a week and 4 mg four times a week. She is on tramadol, simvastatin, omeprazole, metoprolol, metformin, losartan, insulin, Prozac and Aricept. SOCIAL HISTORY: She lives with her . No history of smoking or drinking. PHYSICAL EXAMINATION: GENERAL: She is awake and alert, able to communicate. VITAL SIGNS: She is afebrile, pulse 73, respirations 18, and blood pressure 116/52. LUNGS: Bilateral fair airflow. Few occasional expiratory rhonchi. HEART: S1 and S2 audible. ABDOMEN: Soft, obese, and nontender. No rebound. No guarding. NEUROLOGIC: She is awake, alert. oriented, and able to communicate. LABORATORY DATA: Blood sugar is 219. ASSESSMENT: 1. Status post fall. 2. Right shoulder contusion. 3. Multilevel degenerative disk disease. 4. Cardiac cirrhosis. 5. Chronic anemia. 6. Chronic atrial fibrillation. 7. Rbx-eavwrid-[id number] diabetes. 8. Hyperlipidemia. 9. History of anxiety disorder. PLAN: We will continue to monitor blood sugar. Encourage aggressive physical therapy. Followup CBC, CMP, PT/INR, and adjust her Coumadin. Followup the patient in a.m. Olvin Dejesus MD [facility] # [id number]
[2018-05-16] MEDS: Petrolatum-Mineral Oil Oint (100gm) TOP SCH ×4 (04:13→18:24)
[2018-05-16 06:12] LABS: BASO # 0.01 K/mm3 (0.0-2.0); BASO % 0.1 % (0.0-3.0); EOS % 0.6 % (1.5-5.0); GRAN # 5.75 (1.4-6.5); GRAN % 81.1 % (50.0-68.0); HEMOGLOBIN 10.5 g/dL (12.0-16.0); INR 2.23; LYMPH # 0.7 (1.2-3.4); LYMPH % 10.2 % (22.0-35.0); MEAN CORPUSCULAR HEMOGLOBIN 27.1 pg (25.0-35.0); MEAN CORPUSCULAR HGB CONC 31.5 g/dl (31.0-37.0); MEAN PLATELET VOLUME 11.5 fl (7.0-11.0); MONO # 0.6 (0.1-0.6); PROTHROMBIN TIME 26.1 SECONDS (9.4-12.5); RBC 3.87 10^6/uL (3.5-6.1); RED CELL DISTRIBUTION WIDTH 16.1 % (11.5-14.5); WHITE BLOOD COUNT 7.1 10^3/uL (4.5-11.0)
[2018-05-16] MEDS: Insulin Lispro (humaLOG) MEDIUM Coverage SC SCH ×4 (06:34→21:39)
[2018-05-16] MEDS: Metoprolol Succinate 50 mg XL Tab PO SCH ×2 (08:25→18:22)
[2018-05-16] MEDS: Digoxin 250 mcg (0.25 mg) Tab PO SCH (14:00)
[2018-05-17] MEDS: Petrolatum-Mineral Oil Oint (100gm) TOP SCH ×4 (00:16→17:49)
--- NOTE | 2018-05-17 00:38 | PN ---
DATE: 05/16/2018 SUBJECTIVE: The patient is 72 years old. Seen and examined. Sitting in chair. Seems to be comfortable. No nausea or vomiting. Had a fever of 100.7 rectally. No complaint of cough or congestion. Has spiked fever of 100.7. There is no given Tylenol. PHYSICAL EXAMINATION: VITAL SIGNS: Currently, she is afebrile, pulse 73, respirations 16, blood pressure 157. LUNGS: Bilateral clear airflow. No rhonchi or crackle. HEART: S1 and S2 audible. ABDOMEN: Soft, obese, nontender. No rebound. No guarding. NEUROLOGICAL: The patient is awake, alert, oriented, able to communicate. LABORATORY EXAMINATION: WBC 7.1, hemoglobin 10.5, hematocrit 33.3, platelet of 69. PT 26.1, INR 2.23. Chemistry: Blood sugar is 219. Blood cultures and urine cultures are negative. ASSESSMENT AND PLAN: 1. Status post fall. 2. Right shoulder contusion. 3. Cardiac cirrhosis. 4. Insulin dependent diabetes. 5. Hypertension. 6. Deconditioning, difficulty walking, and generalized osteoarthritis. PLAN: We will continue the patient on current medications. Encourage physical therapy. Monitor blood sugar. Follow up the patient. Olvin Dejesus MD
[2018-05-17] MEDS: Insulin Lispro (humaLOG) MEDIUM Coverage SC SCH ×4 (06:31→22:31)
[2018-05-17] MEDS: Metoprolol Succinate 50 mg XL Tab PO SCH ×2 (08:18→17:47)
[2018-05-17] MEDS: Digoxin 250 mcg (0.25 mg) Tab PO SCH (13:21)
[2018-05-18] MEDS: Petrolatum-Mineral Oil Oint (100gm) TOP SCH ×4 (00:46→17:20)
--- NOTE | 2018-05-18 01:02 | PN ---
DATE: 05/17/2018 SUBJECTIVE: The patient is a 72-year-old female who was seen and examined, participating in therapy, eating and tolerating. PHYSICAL EXAMINATION: VITAL SIGNS: She is afebrile. Pulse 71, respirations 16, blood pressure 98/49. LUNGS: Bilateral fair airflow. No rhonchi or crackles. HEART: S1, S2 audible. ABDOMEN: Soft. Nontender. No rebound. No guarding. NEUROLOGIC: She is awake, alert, and oriented, and communicative. LABORATORY EXAM: Her PT 26.1, INR 2.23. Blood sugar is 146. ASSESSMENT AND PLAN: 1. Insulin-dependent diabetes. 2. Cardiac cirrhosis. 3. Hypertension. 4. Hyperlipidemia. 5. Status post pacemaker placement. 6. Chronic atrial fibrillation. 7. Thrombocytopenia. 8. Status post fall and right shoulder contusion. PLAN: We will continue the patient on current medication. Continue physical therapy. Discussed with therapist. We will help her to get right shoulder therapy also. Order for PT/ INR in a.m. To adjust her Coumadin level. Olvin Dejesus MD
[2018-05-18] MEDS: Insulin Lispro (humaLOG) MEDIUM Coverage SC SCH ×4 (07:00→22:08)
[2018-05-18 07:21] LABS: INR 2.26; PROTHROMBIN TIME 26.4 SECONDS (9.4-12.5)
[2018-05-18] MEDS: Metoprolol Succinate 50 mg XL Tab PO SCH ×2 (08:22→17:21)
[2018-05-18] MEDS: Digoxin 250 mcg (0.25 mg) Tab PO SCH (13:55)
--- NOTE | 2018-05-18 14:46 | PN ---
DATE: 05/18/2018 SUBJECTIVE: The patient is 72 years old, seen and examined, lying in bed, seems to be comfortable, had generalized weakness; however, she got therapy and feels better. PHYSICAL EXAMINATION: VITAL SIGNS: She is afebrile, pulse 65, respirations 14, blood pressure 95/55. LUNGS: Bilateral fair airflow. No rhonchi or crackles. HEART: S1 and S2 audible. ABDOMEN: Soft, nontender, obese. No hepatosplenomegaly. NEUROLOGIC: She is awake, alert, oriented, communicative. LABORATORY EXAM: WBC 7.1, hemoglobin 10.5, hematocrit 33.3, platelets of 69. PT 26.4, INR 2.26. Chemistry: Blood sugar is 133. ASSESSMENT AND PLAN: 1. Status post fall. 2. Right shoulder contusion. 3. Insulin-dependent diabetes. 4. Hypertension. 5. Hyperlipidemia. 6. Status post pacemaker. 7. Cardiac cirrhosis. 8. Thrombocytopenia. PLAN: Currently, the patient is stable. We will continue current medication. Follow up PT/INR. Olvin Dejesus MD (Delete this signature block when dictator is a preceptor.)
--- NOTE | 2018-05-18 23:51 | CP.PCM.CON ---
History of Present Illness - History of Present Illness History of Present Illness: s/p fall at home. Has chronic anemia . Chronic back pain. CT spine degenerative changes. Participating in PT. Review of Systems - Constitutional Constitutional: Fatigue, Malaise, Weakness - EENT Eyes: absent: As Per HPI, Blind Spots, Blurred Vision, Change in Vision, Decreased Night Vision, Diplopia, Discharge, Dry Eye, Exophthalmos, Floaters, Irritation, Itchy Eyes, Loss of Peripheral Vision, Pain, Photophobia, Requires C orrective Lenses, Sees Flashes, Spots in Vision, Tunnel Vision, Other Visual Disturbances, Loss of Vision, Other Ears: absent: As Per HPI, Decreased Hearing, Ear Discharge, Ear Pain, Tinnitus, Abnormal Hearing, Disequilibrium, Dizziness, Other Nose/Mouth/Throat: absent: As Per HPI, Epistaxis, Nasal Congestion, Nasal Discharge, Nasal Obstruction, Nasal Trauma, Nose Pain, Post Nasal Drip, Sinus Pain, Sinus Pressure, Bleeding Gums, Change in Voice, Dental Pain, Dry Mouth, Dysphagia, Halitosis, Hoarsness, Lip Swelling, Mouth Lesions, Mouth Pain, Od ynophagia, Sore Throat, Throat Swelling, Tongue Swelling, Facial Pain, Neck Pain, Neck Mass, Other - Breasts Breasts: absent: As Per HPI, Change in Shape, Mass, Pain, Nipple Discharge, Nipple Inversion, Skin Changes, Swelling, Other - Cardiovascular Cardiovascular: absent: As Per HPI, Acrocyanosis, Chest Pain, Chest Pain at Rest, Chest Pain with Activity, Claudication, Diaphoresis, Dyspnea, Dyspnea on Exertion, Edema, Irregular Heart Rhythm, Pain Radiating to Arm/Neck/Jaw, Leg Edema, Leg Ulcers, Lightheadedness, Orthopnea, Palpitations, Paroxysmal Nocturnal Dyspnea, Pedal Edema, Radiating Pain, Rapid Heart Rate, Slow Heart Rate, Syncope, Other - Respiratory Respiratory: absent: As Per HPI, Cough, Dyspnea, Hemoptysis, Dyspnea on Exertion, Wheezing, Snoring, Stridor, Pain on Inspiration, Chest Congestion, Excessive Mucous Production, Change in Mucous Color, Pain with Coughing, Other - Gastrointestinal Gastrointestinal: absent: As Per HPI, Abdominal Pain, Belching, Bloating, Change in Bowel Habits, Change in Stool Character, Coffee Ground Emesis, Constipation, Cramping, Diarrhea, Dyspepsia, Dysphagia, Early Satiety, Excessive Flatus, Fecal Incontinence, Heartburn, Hematemesis, Hematochezia, Loose Stools, Melena, Nausea, Odynophagia, Temesmus, Vomiting, Other - Genitourinary Genitourinary: absent: As Per HPI, Change in Urinary Stream, Difficulty Urinating, Dysuria, Flank Pain, Hematuria, Pyuria, Nocturia, Urinary Incontinence, Urinary Frequency, Urinary Hesitance, Urinary Urgency, Voiding Freq/Small Amts, Freq UTI, Hx Renal/Bladder Calculi, Hx /Renal Surgery, Bladder Distension, Other - Reproductive: Female Reproductive:Female: absent: As Per HPI, Amenorrhea, Amenorrhea/ Control, Currently Menstual, Cycle <21 Days, Cycle >35 Days, Cycle Variable, Menses 1-7 Days, Menses >/= 8 Days, Menses Variable, Cycle > 4 Weeks Between, No Menses for 6 Months, Heavy Menses, Light Menses, Normal Menses, Spotting Between Cycles, S/P Hysterectomy, Menopausal, Post Menopausal, Premenarche, Abnormal Vaginal Bleeding, Dysmenorrhea, Dyspareunia, Genital Lesions, Genital Pruritis, Pelvic Pain, Prolapse Symptoms, Sexual Dysfunction, Vaginal Discharge, Vaginal Dryness, Vaginal Odor, Vaginal Pruritis, Other - Musculoskeletal Musculoskeletal: As Per HPI - Integumentary Integumentary: absent: As Per HPI, Acne, Alopecia, Bleeding Lesions, Change in Hair, Change in Nails, Change in Pigmentation, Changing Lesions, Dry Skin, Erythema, Furuncle, Hirsutism, Lesions, New Lesions, Non-Healing Lesions, Photosensitivity, Pruritus, Rash, Skin Pain, Skin Ulcer, Sores, Striae, S welling, Unusual Bruising, Wounds, Jaundice, Other - Neurological Neurological: As Per HPI - Endocrine Endocrine: absent: As Per HPI, Change in Body Appearance, Change in Libido, Cold Intolorance, Deepening of Voice, Excessive Sweating, Fatigue, Flushing, Heat Intolorance, Increase in Ring/Shoe/Hat Size, Palpitations, Polydipsia, Polyphagia, Polyuria, Other - Hematologic/Lymphatic Hematologic: As Per HPI Past Patient History - Infectious Disease Hx of Infectious Diseases: None - Tetanus Immunizations Tetanus Immunization: Unknown - Past Social History Smoking Status: Never Smoked - CARDIAC Hx Cardiac Disorders: Yes Hx Congestive Heart Failure: Yes Hx Hypercholesterolemia: Yes Hx Hypertension: Yes - PULMONARY Hx Respiratory Disorders: Yes Hx Asthma: Yes Hx Pneumonia: Yes Hx Respiratory Tract Infection: Yes - NEUROLOGICAL Hx Neurological Disorder: No - HEENT Hx HEENT Problems: Yes (eyeglasses) - RENAL Hx Chronic Kidney Disease: No - ENDOCRINE/METABOLIC Hx Diabetes Mellitus Type 2: Yes - HEMATOLOGICAL/ONCOLOGICAL Hx Blood Disorders: No - INTEGUMENTARY Hx Dermatological Problems: Yes Other/Comment: healed mid abd wound, right abd hernia noted,ble +1 edema dry discolored skin multiple scabs and discolorations and variscosities - MUSCULOSKELETAL/RHEUMATOLOGICAL Hx Falls: Yes - GASTROINTESTINAL Hx Gastrointestinal Disorders: Yes (ABDOMINAL PAIN,HERNIORHAPPHY, CHOLEYCYSTECTOMY) Hx Gastroesophageal Reflux: Yes Other/Comment: pt has another right abd hernia no sx due to risk from afib - GENITOURINARY/GYNECOLOGICAL Hx Genitourinary Disorders: No Hx Urinary Tract Infection: Yes - PSYCHIATRIC Hx Substance Use: No - SURGICAL HISTORY Hx Cholecystectomy: Yes Other/Comment: abdominal hernia repair,defibrillator - ANESTHESIA Hx Anesthesia: Yes Hx Anesthesia Reactions: No Hx Malignant Hyperthermia: No Meds Allergies/Adverse Reactions: Allergies Allergy/AdvReac Type Severity Reaction Status Date / Time kiwi Allergy CONGESTION Verified 05/10/18 13:55 poppyseed oil Allergy RASH Verified 05/10/18 13:55 shellfish derived Allergy ANAPHYLAXIS Verified 05/10/18 13:55 - Medications Medications: Current Medications Acetaminophen (Tylenol 325mg Tab) 650 mg PO Q6H PRN PRN Reason: Temperature Last Admin: 05/16/18 12:15 Dose: 650 mg Aspirin (Ecotrin) 81 mg PO 0800 [facility] Last Admin: 05/18/18 08:21 Dose: 81 mg Atorvastatin Calcium (Lipitor) 10 mg PO DIN [facility] Last Admin: 05/18/18 17:21 Dose: 10 mg Digoxin (Lanoxin) 0.25 mg PO 1400 [facility] Last Admin: 05/18/18 13:55 Dose: 0.25 mg Donepezil HCl (Aricept) 10 mg PO HS [facility] Last Admin: 05/18/18 21:21 Dose: 10 mg Fluoxetine HCl (Prozac) 10 mg PO DAILY [facility] Last Admin: 05/18/18 09:32 Dose: 10 mg Insulin Human Lispro (Humalog Med) 0 units SC [facility]; Protocol Last Admin: 05/18/18 22:08 Dose: Not Given Metformin HCl (Glucophage) 500 mg PO BID [facility] Last Admin: 05/18/18 17:19 Dose: 500 mg Metoprolol Succinate (Toprol Xl) 50 mg PO BRKDIN [facility] Last Admin: 05/18/18 17:21 Dose: 50 mg Multi-Ingredient Ointment (Hydrophor Oint) 0 gm TOP 0000,0600,1200,1800 [facility] Last Admin: 05/18/18 17:20 Dose: 1 appl Tramadol HCl (Ultram) 50 mg PO Q6 PRN PRN Reason: moderate pain 8-10 Last Admin: 05/18/18 16:17 Dose: 50 mg Warfarin Sodium (Coumadin) 5 mg PO DAILY [facility]; Protocol Last Admin: 05/18/18 09:33 Dose: 5 mg Physical Exam - Constitutional Appears: Chronically Ill - Head Exam Head Exam: ATRAUMATIC, NORMAL INSPECTION, NORMOCEPHALIC - Eye Exam Eye Exam: Normal appearance - ENT Exam ENT Exam: Mucous Membranes Moist - Neck Exam Neck exam: Positive for: Normal Inspection - Respiratory Exam Respiratory Exam: Clear to Auscultation Bilateral, NORMAL BREATHING PATTERN - Cardiovascular Exam Cardiovascular Exam: REGULAR RHYTHM, +S1, +S2 - GI/Abdominal Exam GI & Abdominal Exam: Normal Bowel Sounds, Soft - Extremities Exam Extremities exam: Positive for: normal inspection - Back Exam Back exam: NORMAL INSPECTION - Neurological Exam Neurological exam: Alert, CN II-XII Intact, Oriented x3 - Psychiatric Exam Psychiatric exam: Anxious Results - Vital Signs Recent Vital Signs: Last Vital Signs Temp 97.7 F 05/18/18 16:00 Pulse 66 05/18/18 16:00 Resp 18 05/18/18 16:00 BP 111/76 05/18/18 17:21 Pulse Ox 96 05/18/18 16:00 - Labs Result Diagrams: 05/16/18 05:30 Labs: Laboratory Results - last 24 hr 05/18/18 05/18/18 05/18/18 04:49 06:45 11:37 PT 26.4 H INR 2.26 POC Glucose (mg/dL) 133 H 114 H 05/18/18 16:38 PT INR POC Glucose (mg/dL) 154 H Assessment & Plan - Assessment and Plan (Free Text) Assessment: 1. Chronic anemia : Hb/Hct stable. s/p IV iron. will continue to monitor Hb/hct. 2. Chronic back pain : controlled with current meds. 3. Participating in PT. 4. hepatosplenomegaly : no active issues. - Date & Time Date: 05/15/18 Time: 09:00
--- NOTE | 2018-05-18 23:55 | CP.PCM.PN ---
Subjective - Date & Time of Evaluation Date of Evaluation: 05/18/18 Time of Evaluation: 18:00 - Subjective Subjective: Sitting in chair. Tearful. she is worried about lot of personal issues. Back pain improved. Participating in PT. Hb/Hct stable. Objective - Vital Signs/Intake and Output Vital Signs (last 24 hours): Temp Pulse Resp BP Pulse Ox 97.7 F 66 18 111/76 96 05/18/18 16:00 05/18/18 16:00 05/18/18 16:00 05/18/18 17:21 05/18/18 16:00 - Medications Medications: Current Medications Acetaminophen (Tylenol 325mg Tab) 650 mg PO Q6H PRN PRN Reason: Temperature Last Admin: 05/16/18 12:15 Dose: 650 mg Aspirin (Ecotrin) 81 mg PO 0800 [facility] Last Admin: 05/18/18 08:21 Dose: 81 mg Atorvastatin Calcium (Lipitor) 10 mg PO DIN [facility] Last Admin: 05/18/18 17:21 Dose: 10 mg Digoxin (Lanoxin) 0.25 mg PO 1400 [facility] Last Admin: 05/18/18 13:55 Dose: 0.25 mg Donepezil HCl (Aricept) 10 mg PO HS [facility] Last Admin: 05/18/18 21:21 Dose: 10 mg Fluoxetine HCl (Prozac) 10 mg PO DAILY [facility] Last Admin: 05/18/18 09:32 Dose: 10 mg Insulin Human Lispro (Humalog Med) 0 units SC [facility]; Protocol Last Admin: 05/18/18 22:08 Dose: Not Given Metformin HCl (Glucophage) 500 mg PO BID [facility] Last Admin: 05/18/18 17:19 Dose: 500 mg Metoprolol Succinate (Toprol Xl) 50 mg PO BRKDIN [facility] Last Admin: 05/18/18 17:21 Dose: 50 mg Multi-Ingredient Ointment (Hydrophor Oint) 0 gm TOP 0000,0600,1200,1800 [facility] Last Admin: 05/18/18 17:20 Dose: 1 appl Tramadol HCl (Ultram) 50 mg PO Q6 PRN PRN Reason: moderate pain 8-10 Last Admin: 05/18/18 16:17 Dose: 50 mg Warfarin Sodium (Coumadin) 5 mg PO DAILY [facility]; Protocol Last Admin: 05/18/18 09:33 Dose: 5 mg - Labs Labs: 05/16/18 05:30 PT 26.4 SECONDS (9.4-12.5) H 05/18/18 06:45 INR 2.26 05/18/18 06:45 - Constitutional Appears: Well, Non-toxic - Head Exam Head Exam: ATRAUMATIC, NORMAL INSPECTION, NORMOCEPHALIC - Eye Exam Eye Exam: Normal appearance - ENT Exam ENT Exam: Mucous Membranes Moist, Normal Exam - Neck Exam Neck Exam: Normal Inspection - Respiratory Exam Respiratory Exam: Clear to Ausculation Bilateral, NORMAL BREATHING PATTERN - Cardiovascular Exam Cardiovascular Exam: REGULAR RHYTHM, +S1, +S2 - GI/Abdominal Exam GI & Abdominal Exam: Soft, Normal Bowel Sounds - Extremities Exam Extremities Exam: Normal Inspection - Back Exam Back Exam: NORMAL INSPECTION - Neurological Exam Neurological Exam: Alert, Normal Gait, Oriented x3 - Skin Skin Exam: Pallor, Warm Assessment and Plan - Assessment and Plan (Free Text) Assessment: Assessment: 1. Chronic anemia : Hb/Hct stable. s/p IV iron. will continue to monitor Hb/hct. 2. Chronic back pain : controlled with current meds. 3. Participating in PT. 4. hepatosplenomegaly : no active issues. Participating in PT.
[2018-05-19] MEDS: Petrolatum-Mineral Oil Oint (100gm) TOP SCH ×4 (00:31→17:11)
[2018-05-19] MEDS: Insulin Lispro (humaLOG) MEDIUM Coverage SC SCH ×4 (07:02→22:01)
[2018-05-19] MEDS: Metoprolol Succinate 50 mg XL Tab PO SCH ×2 (08:15→17:11)
[2018-05-19] MEDS: Digoxin 250 mcg (0.25 mg) Tab PO SCH (13:20)
--- NOTE | 2018-05-19 16:32 | PN ---
DATE: 05/19/2018 SUBJECTIVE: The patient is a 72-year-old seen and examined, lying in bed, seems to be comfortable, complained of back pain. No fever. No chills. No urine, no bowel symptoms. PHYSICAL EXAMINATION: VITAL SIGNS: She is afebrile. Pulse 66, respiration 18, blood pressure 127/67. LUNGS: Bilateral fair airflow. No rhonchi or crackle. HEART: S1 and S2 audible. ABDOMEN: Soft, obese, nontender. No rebound. No guarding. NEUROLOGICAL: She is awake, alert, oriented, communicative. LABORATORY DATA: Blood sugar is 214. ASSESSMENT AND PLAN: 1. Generalized weakness. 2. Status post fall. 3. Hypertension. 4. Hyperlipidemia. 5. Chronic atrial fibrillation. 6. Cardiac cirrhosis. 7. Cardiomyopathy. PLAN: We will give her analgesic, discussed with nurse. We will give her heating pat and we will continue physical therapy. Monitor blood sugar. We will follow with you. Olvin Dejesus MD
[2018-05-20] MEDS: Petrolatum-Mineral Oil Oint (100gm) TOP SCH ×4 (03:14→17:33)
[2018-05-20] MEDS: Insulin Lispro (humaLOG) MEDIUM Coverage SC SCH ×4 (07:34→21:36)
[2018-05-20] MEDS: Metoprolol Succinate 50 mg XL Tab PO SCH ×2 (08:11→17:34)
[2018-05-20] MEDS: Digoxin 250 mcg (0.25 mg) Tab PO SCH (14:15)
--- NOTE | 2018-05-21 00:02 | PN ---
DATE: 05/20/2018 SUBJECTIVE: The patient is 72 years old, seen and examined, complained of back pain, participating in therapy, complained of generalized weakness. PHYSICAL EXAMINATION: VITAL SIGNS: She is afebrile. Pulse 81, respirations 18, and blood pressure 108/58. LUNGS: Bilateral good airflow. No rhonchi or crackles. HEART: S1 and S2 audible. Irregular rate control. ABDOMEN: Soft, obese, nontender. No rebound. No guarding. NEUROLOGICAL: She is awake, alert, oriented, able to ambulate with worker, participating in therapy. ASSESSMENT: 1. Status post fall. 2. Right shoulder contusion, status post intraarticular injection. 3. Chronic atrial fibrillation. 4. Hypertension. 5. Hyperlipidemia. 6. Insulin-dependent diabetes. PLAN: We will continue the patient on current medications. Follow up PT/INR in a.m. We will reevaluate the patient in a.m. Olvin Dejesus MD
[2018-05-21] MEDS: Petrolatum-Mineral Oil Oint (100gm) TOP SCH ×4 (04:01→17:15)
[2018-05-21] MEDS: Insulin Lispro (humaLOG) MEDIUM Coverage SC SCH ×4 (06:45→21:45)
[2018-05-21 07:05] LABS: INR 1.96; PROTHROMBIN TIME 22.9 SECONDS (9.4-12.5)
[2018-05-21 07:06] LABS: BASO # 0.01 K/mm3 (0.0-2.0); BASO % 0.2 % (0.0-3.0); EOS # 0.1 (0.0-0.7); EOS % 1.2 % (1.5-5.0); GRAN # 4.26 (1.4-6.5); GRAN % 73.5 % (50.0-68.0); HEMOGLOBIN 10.5 g/dL (12.0-16.0); LYMPH # 0.9 (1.2-3.4); LYMPH % 15.3 % (22.0-35.0); MEAN CELL VOLUME 85.2 fl (80.0-105.0); MEAN CORPUSCULAR HEMOGLOBIN 27.3 pg (25.0-35.0); MEAN CORPUSCULAR HGB CONC 32.1 g/dl (31.0-37.0); MONO # 0.6 (0.1-0.6); MONO % 9.8 % (1.0-6.0); RBC 3.84 10^6/uL (3.5-6.1); RED CELL DISTRIBUTION WIDTH 15.5 % (11.5-14.5); WHITE BLOOD COUNT 5.8 10^3/uL (4.5-11.0)
[2018-05-21 07:29] LABS: ALB/GLOB RATIO 0.9 (1.1-1.8); ALT/SGPT 45 U/L (7-56); AST/SGOT 41 U/L (14-36); BLOOD UREA NITROGEN 23 mg/dL (7-21); CALCIUM 9.7 mg/dL (8.4-10.5); GFR NON-AFRICAN AMERICAN > 60
[2018-05-21] MEDS: Metoprolol Succinate 50 mg XL Tab PO SCH ×2 (08:09→17:15)
[2018-05-21] MEDS: Digoxin 250 mcg (0.25 mg) Tab PO SCH (13:18)
[2018-05-21 17:05] VITALS: TEMP 98.3
--- NOTE | 2018-05-21 21:40 | PN ---
DATE: 05/21/2018 SUBJECTIVE: The patient is 72-year-old, seen and examined, better. PHYSICAL EXAMINATION VITAL SIGNS: She is afebrile, pulse 72, respirations 14 and blood pressure . LUNGS: Bilateral fair airflow. No rhonchi or crackle. HEART: S1 and S2 audible. ABDOMEN: Soft, obese, and nontender. No rebound. No guarding. NEUROLOGICAL: She is awake, alert, oriented, and able to communicate. LABORATORY DATA: WBC 5.8, hemoglobin 10.5, hematocrit 32.7, and platelets 63. PT 22.9 and INR 1.96. Chemistry; sodium 133, potassium 4.8, chloride 100, CO2 29, BUN 23, creatinine 0.6, blood sugar 194. ASSESSMENT AND PLAN: 1. Status post fall. 2. Right shoulder contusion. 3. Chronic low back pain. 4. Cirrhosis of liver. 5. Status post pacemaker placement. 6. History of hypertension. 7. Insulin-dependent diabetes. PLAN: Currently, the patient is on tramadol. She is getting heating pads. She is getting Coumadin 5 mg daily. We will continue on that. DC plan next week. Olvin Dejesus MD
[2018-05-22] MEDS: Petrolatum-Mineral Oil Oint (100gm) TOP SCH ×3 (03:41→12:06)
[2018-05-22] MEDS: Insulin Lispro (humaLOG) MEDIUM Coverage SC SCH ×2 (07:46→12:06)
[2018-05-22] MEDS: Metoprolol Succinate 50 mg XL Tab PO SCH (08:05)
[2018-05-22] MEDS: Digoxin 250 mcg (0.25 mg) Tab PO SCH (14:18)
[2018-05-22 14:21] VITALS: PULSE 80
[2018-05-22 16:42] VITALS: BP 103/65; PULSE 86; RESP 18; O2SAT 98
--- NOTE | 2018-05-23 04:25 | DS ---
HISTORY OF PRESENT ILLNESS: The patient is 72 years old who was admitted after she lost her balance and she fell while doing laundry. She fell on her right side and sustained right shoulder contusion. The patient was seen by Dr. Clarke and Dr. Lee; had intraarticular steroid injection done. The patient had unstable gait, needed rehab, so was transferred to TCU on 05/14/2018. The patient received physical therapy. She was resumed on her medication. PAST MEDICAL HISTORY: Significant for: 1. Hypertension. 2. Status post pacemaker and defibrillator placement. 3. Chronic AFib. 4. Insulin-dependent diabetes. 5. Cardiac cirrhosis. 6. History of mediastinal lymphadenopathy; had biopsy done, was unremarkable for malignancy. 7. Generalized osteoarthritis. PHYSICAL EXAMINATION: GENERAL: Today, the patient is awake, alert, oriented, communicative. VITAL SIGNS: The patient is afebrile, pulse 86, respirations 18, blood pressure 103/65. LUNGS: Bilateral fair airflow. No rhonchi or crackle. HEART: S1 and S2 audible. ABDOMEN: Soft and nontender. No rebound. No guarding. NEUROLOGIC: The patient is awake and alert, oriented, able to communicate; ambulated with the walker. ASSESSMENT: 1. Status post fall. 2. Right shoulder contusion. 3. Chronic atrial fibrillation. 4. Insulin-dependent diabetes. 5. Hypertension. 6. Hyperlipidemia. 7. Cardiac cirrhosis. 8. Thrombocytopenia. PLAN: The patient is being discharged home. She will resume her medications. She will follow up with Dr. Sullivan. She is going to continue her same regimen of Coumadin. She will continue Prilosec, metformin, losartan, Prozac, digoxin, aspirin and she is given prescription for Ultracet for pain as needed. Olvin Dejesus MD
== END 2018-05-22 16:55 | disposition home or self-care (01) | DRG 605 ==
LOC: TRCU 16:47
PROVIDERS: ADMIT Internal Medicine; ATTEND Internal Medicine
PROC: F07Z9FZ Gait Training/Functional Ambulation Treatment using Assistive, Adaptive, Supportive or Protective Equipment (ICD-10-PCS; principal; 2018-05-15)
PROC: F07M6ZZ Therapeutic Exercise Treatment of Musculoskeletal System - Whole Body (ICD-10-PCS; 2018-05-15)
PROC: F08Z2ZZ Grooming/Personal Hygiene Treatment (ICD-10-PCS; 2018-05-15)
PROC: F08Z1ZZ Dressing Techniques Treatment (ICD-10-PCS; 2018-05-15)
PROC: F08Z0ZZ Bathing/Showering Techniques Treatment (ICD-10-PCS; 2018-05-15)
PROC: F08Z4ZZ Home Management Treatment (ICD-10-PCS; 2018-05-15)
DX: S40.011A Contusion of right shoulder, initial encounter (principal); I42.9 Cardiomyopathy, unspecified; I48.2 Chronic atrial fibrillation; E11.9 Type 2 diabetes mellitus without complications; I11.0 Hypertensive heart disease with heart failure; E78.5 Hyperlipidemia, unspecified; D69.6 Thrombocytopenia, unspecified; K76.1 Chronic passive congestion of liver; D64.9 Anemia, unspecified; E78.00 Pure hypercholesterolemia, unspecified; G89.29 Other chronic pain; I50.9 Heart failure, unspecified; J45.909 Unspecified asthma, uncomplicated; K21.9 Gastro-esophageal reflux disease without esophagitis; M15.9 Polyosteoarthritis, unspecified; R26.81 Unsteadiness on feet; W01.0XXA Fall on same level from slipping, tripping and stumbling without subsequent striking against object, initial encounter; Z79.01 Long term (current) use of anticoagulants; Z79.4 Long term (current) use of insulin; Z87.01 Personal history of pneumonia (recurrent); Z87.440 Personal history of urinary (tract) infections; Z90.49 Acquired absence of other specified parts of digestive tract; Z95.0 Presence of cardiac pacemaker

== ENCOUNTER 2018-05-31 13:04 | Inpatient (IN) | payer MEDICARE, OTHER ==
[2018-05-31 13:14] VITALS: BMI 28.3
--- NOTE | 2018-05-31 15:01 | CT ---
Date of service: 05/31/2018 PROCEDURE: CT HEAD WITHOUT CONTRAST. HISTORY: headache COMPARISON: None available. TECHNIQUE: Axial computed tomography images were obtained through the head/brain without intravenous contrast. Radiation dose: Total exam DLP = 832.27 mGy-cm. This CT exam was performed using one or more of the following dose reduction techniques: Automated exposure control, adjustment of the mA and/or kV according to patient size, and/or use of iterative reconstruction technique. FINDINGS: HEMORRHAGE: No intracranial hemorrhage. BRAIN: No mass effect or edema. No atrophy or chronic microvascular ischemic changes. VENTRICLES: Unremarkable. No hydrocephalus. CALVARIUM: Unremarkable. PARANASAL SINUSES: Unremarkable as visualized. No significant inflammatory changes. MASTOID AIR CELLS: Unremarkable as visualized. No inflammatory changes. OTHER FINDINGS: None. IMPRESSION: Normal CT of the Head.
[2018-05-31 15:52] LABS: BASO # 0.02 K/mm3 (0.0-2.0); BASO % 0.4 % (0.0-3.0); EOS # 0.1 (0.0-0.7); EOS % 2.4 % (1.5-5.0); GRAN # 4.1 (1.4-6.5); GRAN % 76.7 % (50.0-68.0); HEMOGLOBIN 10.9 g/dL (12.0-16.0); LYMPH # 0.8 (1.2-3.4); LYMPH % 15.5 % (22.0-35.0); MEAN CELL VOLUME 85.3 fl (80.0-105.0); MEAN CORPUSCULAR HEMOGLOBIN 27.3 pg (25.0-35.0); MEAN PLATELET VOLUME 10.4 fl (7.0-11.0); MONO # 0.3 (0.1-0.6); RED CELL DISTRIBUTION WIDTH 15.1 % (11.5-14.5); WHITE BLOOD COUNT 5.4 10^3/uL (4.5-11.0)
[2018-05-31 16:03] LABS: ALBUMIN 3.2 g/dL (3.0-4.8); ALT/SGPT 47 U/L (7-56); AST/SGOT 45 U/L (14-36); BLOOD UREA NITROGEN 18 mg/dL (7-21); CALCIUM 9.7 mg/dL (8.4-10.5); GFR NON-AFRICAN AMERICAN > 60; PARTIAL THROMBOPLASTIN TIME 47.1 Seconds (25.1-36.5)
[2018-05-31 16:16] LABS: INR 4.61; PROTHROMBIN TIME 54.2 SECONDS (9.4-12.5)
--- NOTE | 2018-05-31 16:22 | ED PDOC ---
Arrival/HPI - General Chief Complaint: Lower Extremity Problem/Injury Time Seen by Provider: 05/31/18 13:18 Historian: Patient - History of Present Illness Narrative History of Present Illness (Text): 05/31/18 16:26 72 y/o female with PMH of DM, Afib (on Coumadin), asthma, presents to the ED c/o worsening left lower leg pain and swelling s/p mechanical fall 2 days ago. States she got up to go to the bathroom and tripped over her left foot, causing her to fall and hit her head. Denies LOC, patient's came to her side i mmediately after hearing pt yell. Patient on coumadin. Pt able to ambulate since the incident, although with assistance and pain. Of note, patient admitted on 05/11/18 for lower extremity weakness. Denies numbness, paresthesias, weakness, fever, chills, abdominal pain, N/V, headache, dizziness, vision changes, urinary symptoms, back pain, neck pain, or any other associated symptoms. Past Medical History - Infectious Disease Hx of Infectious Diseases: None - Tetanus Immunization Tetanus Immunization: Unknown - Cardiac Hx Cardiac Disorders: Yes (A fib) - Pulmonary Hx Respiratory Disorders: Yes Hx Asthma: Yes Hx Pneumonia: Yes Hx Respiratory Tract Infection: Yes - Neurological Hx Neurological Disorder: No - HEENT Hx HEENT Disorder: Yes (eyeglasses) - Renal Hx Renal Disorder: No - Endocrine/Metabolic Hx Endocrine Disorders: Yes Hx Diabetes Mellitus Type 2: Yes - Hematological/Oncological Hx Blood Disorders: No - Integumentary Hx Dermatological Disorder: Yes Other/Comment: healed mid abd wound, right abd hernia noted,ble +1 edema dry discolored skin multiple scabs and discolorations and variscosities - Musculoskeletal/Rheumatological Hx Musculoskeletal Disorders: No - Gastrointestinal Hx Gastrointestinal Disorders: Yes (ABDOMINAL PAIN,HERNIORHAPPHY,CHOLEYCYSTECT LAURA) Hx Gastroesophageal Reflux: Yes Other/Comment: pt has another right abd hernia no sx due to risk from afib - Genitourinary/Gynecological Hx Genitourinary Disorders: Yes Hx Urinary Tract Infection: Yes - Psychiatric Hx Psychophysiologic Disorder: Yes Hx Anxiety: Yes Hx Substance Use: No - Surgical History Hx Cholecystectomy: Yes Other/Comment: abdominal hernia repair,defibrillator - Anesthesia Hx Anesthesia: Yes Hx Anesthesia Reactions: No Hx Malignant Hyperthermia: No - Suicidal Assessment Feels Threatened In Home Enviroment: No Family/Social History - Physician Review Nursing Documentation Reviewed: Yes Family/Social History: No Known Family HX Smoking Status: Never Smoked Hx Alcohol Use: No Hx Substance Use: No Hx Substance Use Treatment: No Allergies/Home Meds Allergies/Adverse Reactions: Allergies kiwi Allergy (Verified 05/31/18 21:18) CONGESTION poppyseed oil Allergy (Verified 05/31/18 21:18) RASH shellfish derived Allergy (Verified 05/31/18 21:18) ANAPHYLAXIS Home Medications: Home Meds Medication Instructions Recorded Confirmed Warfarin Sodium [Coumadin] 4 mg PO .TUESDAY TO Tuesday11/05/14 05/14/18 Metoprolol Succinate [Toprol Xl] 50 mg PO BRKDIN 01/05/15 05/14/18 Omeprazole [Prilosec] 40 mg PO DAILY 09/03/15 05/14/18 Review of Systems - Physician Review All systems were reviewed & negative as marked: Yes - Review of Systems Constitutional: Normal. absent: Fevers Eyes: Normal. absent: Vision Changes ENT: Normal. absent: Sore Throat, Sinus Congestion Respiratory: Normal. absent: SOB, Cough Cardiovascular: Normal. absent: Chest Pain, Palpitations, Syncope Gastrointestinal: Normal. absent: Abdominal Pain, Nausea, Vomiting Genitourinary Female: Normal. absent: Dysuria, Frequency Musculoskeletal: Normal. absent: Back Pain, Neck Pain Skin: Cellulitis (left foot) Neurological: Normal. absent: Headache, Dizziness Endocrine: Normal Hemo/Lymphatic: Normal Psychiatric: Normal Physical Exam Vital Signs Reviewed: Yes Vital Signs Temp Pulse Resp BP Pulse Ox 05/31/18 13:16 97.8 F 80 18 154/70 H 99 Temperature: Afebrile Blood Pressure: Normal Pulse: Regular Respiratory Rate: Normal Appearance: Positive for: Well-Appearing, Non-Toxic, Comfortable Pain Distress: None Mental Status: Positive for: Alert and Oriented X 3 - Systems Exam Head: Present: Atraumatic, Normocephalic Pupils: Present: PERRL Extroacular Muscles: Present: EOMI Conjunctiva: Present: Normal Mouth: Present: Moist Mucous Membranes Neck: Present: Normal Range of Motion. No: MIDLINE TENDERNESS Respiratory/Chest: Present: Clear to Auscultation, Good Air Exchange. No: Respiratory Distress, Accessory Muscle Use Cardiovascular: Present: Regular Rate and Rhythm, Normal S1, S2, Peripheal Pulses Present Abdomen: Present: Normal Bowel Sounds. No: Tenderness, Distention, Peritoneal Signs, Rebound, Guarding Back: Present: Normal Inspection. No: CVA Tenderness, Midline Tenderness, Paraspinal Tenderness Upper Extremity: Present: Normal Inspection, Normal ROM, NORMAL PULSES, Neurovascularly Intact, Capillary Refill < 2s. No: Cyanosis, Edema Lower Extremity: Present: CALF TENDERNESS (left), NORMAL PULSES (1+/2 left dorsalis pedis, 2/2 right dorsalis pedis), Tenderness (left calf, left posterior and medial ankle, left dorsal foot), Swelling (left dorsal foot), Erythema (left dorsal foot), Temperature Abnormalties (right foot cold, left foot hot), Neurovascularly Intact, Capillary Refill < 2 s, Other (distal pulses palpable bilaterally). No: Normal Inspection (ecchymosis to left foot toes 3-5), Normal ROM (decreased secondary to pain), Deformity Neurological: Present: GCS=15, CN II-XII Intact, Speech Normal, Motor Func Grossly Intact, Normal Sensory Function, Gait Normal (with assistance), Memory Normal Skin: Present: Warm, Dry, Erythematous (left foot), Hot (left foot). No: Rashes Psychiatric: Present: Alert, Oriented x 3, Normal Insight, Normal Concentration, Normal Affect, Normal Mood Medical Decision Making ED Course and Treatment: Initial Plan: * CBC, CMP * Coags * Head CT * Left Knee XR * Left Tib/Fib XR * Left Ankle XR * Left Foot XR * Venous duplex left leg Head CT negative for acute pathology Venous duplex negative for DVT of left leg 16:00 INR elevated at 4.6 Labs otherwise unremarkable ED attending Dr. Zelaay evaluated and examined patient at bedside, agrees with plan of care and disposition. Clinical impression of cellulitis. 16:30 Podiatry resident Dafne evaluated patient at bedside, low suspicion for fracture, suspicious for cellulitis, recommends vascular consult. 17:[address] Dejesus who accepts patient for inpatient admission with diagnosi s of cellulitis and elevated INR. Recommends Arterial doppler and ARYA, IV Vancomycin, Rocephin; Asks for consults with Dr. Castillo, Dr. Mcneal, and Dr. Garcia. Patient with palpable distal pulses, will get doppler and ARYA tomorrow morning, per ultrasound. - Lab Interpretations Lab Results: 05/31/18 15:46 05/31/18 15:46 Lab Results 05/31/18 15:46: Sodium 136, Potassium 4.8, Chloride 104, Carbon Dioxide 26, Anion Gap 10, BUN 18, Creatinine 0.7, Est GFR ( Amer) > 60, Est GFR (Non- Af Amer) > 60, Random Glucose 93, Calcium 9.7, Total Bilirubin 0.8, AST 45 H, ALT 47, Alkaline Phosphatase 173 H D, Total Protein 6.6, Albumin 3.2, Globulin 3.3, Albumin/Globulin Ratio 1.0 L 05/31/18 15:46: PT 54.2 H, INR 4.61 H*, APTT 47.1 H 05/31/18 15:46: WBC 5.4, RBC 4.00, Hgb 10.9 L, Hct 34.1 L, MCV 85.3, MCH 27.3, MCHC 32.0, RDW 15.1 H, Plt Count 65 L, MPV 10.4, Gran % 76.7 H, Lymph % (Auto) 15.5 L, [place] % (Auto) 5.0, Eos % (Auto) 2.4, Baso % (Auto) 0.4, Gran # 4.10, Lymph # (Auto) 0.8 L, [place] # (Auto) 0.3, Eos # (Auto) 0.1, Baso # (Auto) 0.02 I have reviewed the lab results: Yes - RAD Interpretation Radiology Orders: 05/31/18 13:59 HEAD W/O CONTRAST [CT] Stat ANKLE LEFT 3 VIEWS ROUTINE [RAD] Stat FOOT LEFT 3 VIEWS ROUTINE [RAD] Stat TIBIA FIBULA LEFT [RAD] Stat DUPLEX LOWER EXTRM VEIN LEFT [US] Stat 05/31/18 15:14 KNEE LEFT 2 VIEWS (AP & LAT) [RAD] Stat Can Filler: Radiologist - Medication Orders Current Medication Orders: Discontinued Medications Acetaminophen (Tylenol 325mg Tab) 650 mg PO STAT STA Stop: 05/31/18 14:05 Last Admin: 05/31/18 15:52 Dose: 650 mg MAR Pain/Vitals Document 05/31/18 15:52 AMA (Rec: 05/31/18 15:52 AMA [id number]) Pain Reassessment Is This A Pain ReAssessment? No Sleep Is patient sleeping during reassessment? No Presence of Pain Presence of Pain Yes Pain Scale Used Protocol: PSCALES Pain Scale Used Numeric Location Pain Location Body Site Foot Intensity 9 Disposition/Present on Arrival - Present on Arrival Any Indicators Present on Arrival: No History of DVT/PE: No History of Uncontrolled Diabetes: No Urinary Catheter: No History of Decub. Ulcer: No History Surgical Site Infection Following: None - Disposition Have Diagnosis and Disposition been Completed?: Yes Diagnosis: Elevated INR, Cellulitis Disposition: HOSPITALIZED Disposition Time: 17:00 Patient Plan: Discharge Patient Problems: Current Active Problems Problem Status Onset Cellulitis Acute Elevated INR Acute Condition: STABLE
--- NOTE | 2018-05-31 16:55 | CP.PCM.CON ---
History of Present Illness - History of Present Illness History of Present Illness: Podiatry Consult Note for Dr. Garcia 72F patient, with PMHx of DM, HTN, CHF, pacemaker placement, seen and evaluated for L leg pain for two days after falling in her home. She notes that she had tripped over her L foot. She states that originally she had minimal pain to the lower extremity however, pain gradually got worse over the past two days. She is able to ambulate, however it is painful. Patient is accompanied by her . She denies N/V/F/SOB/CP. PMHx: as above PSHx: Hernia repair, pacemaker SH: No tobacco use, no alcohol use, no ilicit drug use Review of Systems - Review of Systems Review of Systems: As per HPI Past Patient History - Infectious Disease Hx of Infectious Diseases: None - Tetanus Immunizations Tetanus Immunization: Unknown - Past Social History Smoking Status: Never Smoked - CARDIAC Hx Cardiac Disorders: Yes (A fib) - PULMONARY Hx Respiratory Disorders: Yes Hx Asthma: Yes Hx Pneumonia: Yes Hx Respiratory Tract Infection: Yes - NEUROLOGICAL Hx Neurological Disorder: No - HEENT Hx HEENT Problems: Yes (eyeglasses) - RENAL Hx Chronic Kidney Disease: No - ENDOCRINE/METABOLIC Hx Endocrine Disorders: Yes Hx Diabetes Mellitus Type 2: Yes - HEMATOLOGICAL/ONCOLOGICAL Hx Blood Disorders: No - INTEGUMENTARY Hx Dermatological Problems: Yes Other/Comment: healed mid abd wound, right abd hernia noted,ble +1 edema dry discolored skin multiple scabs and discolorations and variscosities - MUSCULOSKELETAL/RHEUMATOLOGICAL Hx Musculoskeletal Disorders: No - GASTROINTESTINAL Hx Gastrointestinal Disorders: Yes (ABDOMINAL PAIN,HERNIORHAPPHY,CHOLEYCYSTECTOMY) Hx Gastroesophageal Reflux: Yes Other/Comment: pt has another right abd hernia no sx due to risk from afib - GENITOURINARY/GYNECOLOGICAL Hx Genitourinary Disorders: Yes Hx Urinary Tract Infection: Yes - PSYCHIATRIC Hx Psychophysiologic Disorder: Yes Hx Anxiety: Yes Hx Substance Use: No - SURGICAL HISTORY Hx Cholecystectomy: Yes Other/Comment: abdominal hernia repair,defibrillator - ANESTHESIA Hx Anesthesia: Yes Hx Anesthesia Reactions: No Hx Malignant Hyperthermia: No Meds Allergies/Adverse Reactions: Allergies Allergy/AdvReac Type Severity Reaction Status Date / Time kiwi Allergy CONGESTION Verified 05/31/18 21:18 poppyseed oil Allergy RASH Verified 05/31/18 21:18 shellfish derived Allergy ANAPHYLAXIS Verified 05/31/18 21:18 Physical Exam - Constitutional Appears: Non-toxic, No Acute Distress - Head Exam Head Exam: ATRAUMATIC, NORMOCEPHALIC - Extremities Exam Additional comments: LLE Focused exam: Vascular: DP/PT faintly palpable, CFT < 3 seconds to all digits, TG warm to warm from proximal to distal, mild edema appreciated to dorsal aspect of foot Ortho: Generalized tenderness to dorsal aspect of foot, MMT 4/5 due to patient guarding Neuro: Gross and protective sensation intact Derm: No open lesions, mild erythema to dorsal aspect of foot, mottled appearance to skin secondary to vascular changes, no clinical signs of infection at this time. - Neurological Exam Neurological exam: Alert, Oriented x3 - Psychiatric Exam Psychiatric exam: Normal Affect, Normal Mood Results - Vital Signs Recent Vital Signs: Last Vital Signs Temp 97.8 F 05/31/18 13:16 Pulse 80 05/31/18 13:16 Resp 18 05/31/18 13:16 BP 154/70 H 05/31/18 13:16 Pulse Ox 99 05/31/18 13:16 - Labs Result Diagrams: 06/01/18 06:00 06/01/18 06:00 Labs: Laboratory Results - last 24 hr 05/31/18 05/31/18 05/31/18 15:46 15:46 15:46 WBC 5.4 RBC 4.00 Hgb 10.9 L Hct 34.1 L MCV 85.3 MCH 27.3 MCHC 32.0 RDW 15.1 H Plt Count 65 L MPV 10.4 Gran % 76.7 H Lymph % (Auto) 15.5 L [place] % (Auto) 5.0 Eos % (Auto) 2.4 Baso % (Auto) 0.4 Gran # 4.10 Lymph # (Auto) 0.8 L [place] # (Auto) 0.3 Eos # (Auto) 0.1 Baso # (Auto) 0.02 PT 54.2 H INR 4.61 H* APTT 47.1 H Sodium 136 Potassium 4.8 Chloride 104 Carbon Dioxide 26 Anion Gap 10 BUN 18 Creatinine 0.7 Est GFR ( Amer) > 60 Est GFR (Non-Af Amer) > 60 Random Glucose 93 Calcium 9.7 Total Bilirubin 0.8 AST 45 H ALT 47 Alkaline Phosphatase 173 H D Total Protein 6.6 Albumin 3.2 Globulin 3.3 Albumin/Globulin Ratio 1.0 L Assessment & Plan - Assessment and Plan (Free Text) Assessment: 72F patient, with PMHx of DM, HTN, CHF, pacemaker placement, seen and evaluated for L leg pain for two days after falling in her home. Plan: Patient seen and evaluated Patient discussed in detail with Dr. Garcia Chart, labs, vitals reviewed; afebrile, absent leuckocytosis, PT/PTT/INR elevated L foot, L ankle, L tib fib, L knee x-rays taken; final read pending ARYA/PVR ordered Will continue to follow Thank you for the consult and allowing us to partake in the care of this patient - Date & Time Date: 05/31/18 Time: 17:12
[2018-05-31] MEDS ORDERED: Vancomycin 1gm in NS 250ml 1 GM/250 ML BAG IVPB STA (17:20)
[2018-05-31] MEDS ORDERED: cefTRIAXone 1 gm 1 GM/100 ML BAG IVPB STA (17:26)
--- NOTE | 2018-05-31 18:27 | RAD ---
Date of service: 05/31/2018 PROCEDURE: Left Knee Radiographs. HISTORY: Pain. COMPARISON: None. FINDINGS: BONES: There is diffuse bone demineralization. No acute fracture or dislocation. JOINTS: There is mild tricompartmental degenerative osteoarthrosis with reduced joint spaces, marginal osteophytes and tibial spiking, worse in the medial compartment. JOINT EFFUSION: Small suprapatellar joint effusion. OTHER FINDINGS: There are atherosclerotic vascular calcifications.. IMPRESSION: No acute displaced fracture or dislocation.
--- NOTE | 2018-05-31 18:29 | RAD ---
Date of service: 05/31/2018 PROCEDURE: Radiographs of the left tibia and fibula. HISTORY: fall, left leg pain COMPARISON: None available. TECHNIQUE: Frontal and lateral views obtained. FINDINGS: BONES: There is diffuse bone demineralization. No acute fracture or dislocation JOINT SPACES: Bone alignment is normal OTHER FINDINGS: There are atherosclerotic vascular calcifications. IMPRESSION: No acute fracture or dislocation.
--- NOTE | 2018-05-31 18:30 | RAD ---
Date of service: 05/31/2018 PROCEDURE: Left Foot Radiographs. HISTORY: fall, leg pain COMPARISON: None. FINDINGS: BONES: There is diffuse bone demineralization. No acute displaced fracture or bone destruction. Bone alignment is normal. There is a prominent plantar calcaneal spur and dorsal calcaneal enthesophyte. JOINTS: There is mild degenerative osteoarthrosis in the subtalar joints. SOFT TISSUES: Normal. OTHER FINDINGS: There are atherosclerotic vascular calcifications. IMPRESSION: No acute fracture or dislocation.
--- NOTE | 2018-05-31 18:32 | RAD ---
Date of service: 05/31/2018 PROCEDURE: Left Ankle Radiographs. HISTORY: fall, leg pain COMPARISON: None available. FINDINGS: BONES: There is diffuse bone demineralization. No acute displaced fracture or bone destruction. Bone alignment is normal. JOINTS: Normal. No osteoarthritis. Ankle mortise maintained. Talar dome intact SOFT TISSUES: Normal. OTHER FINDINGS: None. IMPRESSION: No acute displaced fracture or dislocation.
[2018-05-31] MEDS ORDERED: TraMADol/Apap 37.5/325 mg Tab PO PRN (19:20)
--- NOTE | 2018-05-31 21:48 | HP ---
DATE OF EXAM: 05/31/2018 HISTORY OF PRESENT ILLNESS: The patient is 72-year-old white female known to me from previous admission, was brought to emergency room after she fell 2 days ago. She states she tripped, did not lose consciousness. She did hit her head. Initially, she did not have much pain in her leg, but later on she noticed that her left leg is getting swollen and is red. She came to emergency room for further evaluation. The patient says she is able to ambulate, but it is painful. Otherwise, she has no history of fever. No chills. No nausea, vomiting, or diarrhea. No headache. PAST MEDICAL HISTORY: 1. Significant for chronic atrial fibrillation. 2. Insulin-dependent diabetes. 3. Status post pacemaker placement. 4. Hyperlipidemia. 5. History of thrombocytopenia. 6. Chronic anemia. 7. Mediastinal lymphadenopathy, status post biopsy that was unremarkable. ALLERGIES: SHE IS ALLERGIC TO [place], POPPY SEED OIL, SHELL FISH DERIVATIVE. MEDICATIONS AT HOME: She is on Coumadin, tramadol, simvastatin 20 mg daily, metoprolol 50 mg twice a day, metformin 500 twice a day, losartan 100 mg daily. She is on . Prozac 10 mg daily, Aricept 10 mg daily, digoxin 2.5 mcg daily, aspirin 81 mg daily, and Plavix 40 mg daily. SOCIAL HISTORY: She is , lives with her . Denies smoking, drinking alcohol use. PHYSICAL EXAMINATION GENERAL: She is awake, alert, complains of pain in the left leg. VITAL SIGNS: The patient is afebrile. The patient has temperature of 100.1, pulse 69, respirations 20, blood pressure 130/59. LUNGS: Bilateral fair airflow. No rhonchi or crackles. HEART: S1 and S2 audible. ABDOMEN: Soft, obese, nontender. No rebound. No guarding. NEUROLOGIC: Patient is awake, alert, oriented, communicative. EXTREMITIES: Left lower leg, redness and warmth noted. LABORATORY DATA: WBC is 5.4, hemoglobin 10.9, hematocrit 34.1, and platelets 65. PT 54.2. INR 4.6. Chemistry, sodium 136, potassium 4.8, chloride 104, CO2 of 19, BUN 18, creatinine 0.7. Blood sugar of 93. . X-ray of the knee has no fracture. Ankle x-ray is unremarkable. Leg Doppler negative for DVT. X-ray of the foot, head of tibia and fibula on the left side is unremarkable. ASSESSMENT: 1. Left leg cellulitis. 2. Status post fall. 3. Hypertension. 4. Chronic atrial fibrillation. 5. Insulin-dependent diabetes. 6. Hyperlipidemia. 7. Thrombocytopenia. 8. Cirrhosis of liver. PLAN: The patient will be admitted. We will start on IV antibiotics. ID consult by Dr. Gonzalez and Podiatry consult by has been requested. We will hold her Coumadin and follow up with PT/INR in the a.m. Olvin Dejesus MD
--- NOTE | 2018-05-31 21:57 | US ---
PROCEDURE: Left lower extremity venous US HISTORY: Leg pain and swelling. Evaluate for DVT. PHYSICIAN(S): Frank Mcneal MD. TECHNIQUE: Duplex sonography and color-flow Doppler with graded compression were used to evaluate the deep venous system of the left lower extremity. FINDINGS: The visualized deep venous system of the left lower extremity is sonographically normal and compressible. Normal wave forms and augmentation are seen. There is no sonographic evidence for deep venous thrombosis in the visualized segments of the left lower extremity. IMPRESSION: 1. No sonographic evidence for deep venous thrombosis in the visualized segments of the left lower extremity.
[2018-05-31] MEDS ORDERED: Influenza Vaccine 60 mcg/0.5 mL SYR (4YR UP) IM ONE (23:38)
[2018-05-31] MEDS ORDERED: Pneumococcal 23-Valent Vaccine IM ONE (23:38)
[2018-06-01 06:23] LABS: BASO # 0.02 K/mm3 (0.0-2.0); BASO % 0.4 % (0.0-3.0); EOS # 0.1 (0.0-0.7); EOS % 2.1 % (1.5-5.0); GRAN # 3.27 (1.4-6.5); GRAN % 69.4 % (50.0-68.0); HEMOGLOBIN 10.1 g/dL (12.0-16.0); INR 3.33; LYMPH % 21.7 % (22.0-35.0); MEAN CELL VOLUME 85.3 fl (80.0-105.0); MEAN CORPUSCULAR HEMOGLOBIN 26.9 pg (25.0-35.0); MEAN CORPUSCULAR HGB CONC 31.6 g/dl (31.0-37.0); MEAN PLATELET VOLUME 10.9 fl (7.0-11.0); MONO # 0.3 (0.1-0.6); MONO % 6.4 % (1.0-6.0); PROTHROMBIN TIME 39.3 SECONDS (9.4-12.5); RBC 3.75 10^6/uL (3.5-6.1); RED CELL DISTRIBUTION WIDTH 15.4 % (11.5-14.5); WHITE BLOOD COUNT 4.7 10^3/uL (4.5-11.0)
[2018-06-01 06:51] LABS: ALB/GLOB RATIO 0.9 (1.1-1.8); ALBUMIN 2.7 g/dL (3.0-4.8); ALT/SGPT 44 U/L (7-56); AST/SGOT 36 U/L (14-36); BLOOD UREA NITROGEN 17 mg/dL (7-21); CALCIUM 9.4 mg/dL (8.4-10.5); GFR NON-AFRICAN AMERICAN > 60
--- NOTE | 2018-06-01 07:23 | CP.PCM.PN ---
Subjective - Date & Time of Evaluation Date of Evaluation: 06/01/18 Time of Evaluation: 07:15 ( ) - Subjective Subjective: Podiatry Progress Note: Dr. Garcia 72F patient seen and evaluated at bedside for L ankle sprain. Patient resting comfortably and in NAD. She states that she has been ambulating to the bathroom and the pain to her L foot is decreasing. She denies any other pedal complaints at this time. Denies N/V/F/SOB/CP. Objective - Vital Signs/Intake and Output Vital Signs (last 24 hours): Temp Pulse Resp BP Pulse Ox 99.5 F 89 20 130/59 L 99 05/31/18 19:22 05/31/18 23:15 05/31/18 23:15 05/31/18 19:22 05/31/18 19:22 Intake and Output: 06/01/18 06/01/18 06:59 18:59 Intake Total 360 Balance 360 - Medications Medications: Current Medications Acetaminophen (Tylenol 325mg Tab) 650 mg PO Q6H PRN PRN Reason: Fever >100.4 F Aspirin (Ecotrin) 81 mg PO DAILY [facility] Atorvastatin Calcium (Lipitor) 10 mg PO DIN [facility] Digoxin (Lanoxin) 0.25 mg PO 1400 [facility] Donepezil HCl (Aricept) 10 mg PO HS [facility] Last Admin: 05/31/18 21:37 Dose: 10 mg Fluoxetine HCl (Prozac) 10 mg PO DAILY [facility] Insulin Detemir (Levemir) 40 unit SC BID [facility] Insulin Human Lispro (Humalog) 10 units SC [facility] Stop: 06/14/18 07:31 Losartan Potassium (Cozaar) 100 mg PO DAILY [facility] Metformin HCl (Glucophage) 500 mg PO BID [facility] Metoprolol Succinate (Toprol Xl) 50 mg PO BRKDIN [facility] Tramadol/Acetaminophen (Ultracet 37.5/325 Mg) 1 tab PO TID PRN PRN Reason: Pain, moderate (4-7) - Labs Labs: 06/01/18 06:00 06/01/18 06:00 PT 39.3 SECONDS (9.4-12.5) H 06/01/18 06:00 INR 3.33 06/01/18 06:00 APTT 47.1 Seconds (25.1-36.5) H 05/31/18 15:46 - Constitutional Appears: Well, Non-toxic, No Acute Distress - Head Exam Head Exam: ATRAUMATIC, NORMOCEPHALIC - Extremities Exam Additional comments: LLE Focused exam: Vascular: DP/PT faintly palpable, CFT < 3 seconds to all digits, TG warm to warm from proximal to distal, minimal edema appreciated to L dorsal aspect of foot Ortho: Generalized tenderness to dorsal aspect of foot, resolving, MMT 4/5 due to patient guarding Neuro: Gross and protective sensation intact Derm: No open lesions, erythema to dorsal aspect of foot, resolved, mottled appearance to skin secondary to vascular changes, no clinical signs of infection at this time. - Neurological Exam Neurological Exam: Alert, Awake, Oriented x3 - Psychiatric Exam Psychiatric exam: Normal Affect, Normal Mood Assessment and Plan - Assessment and Plan (Free Text) Assessment: 72F patient seen and evaluated at bedside for L ankle sprain. Plan: Patient seen and evaluated at bedside with Dr. Garcia Chart, labs, vitals reviewed; afebrile, absent leuckocytosis, PT/PTT/INR elevated L foot, L ankle, L tib fib, L knee x-rays taken; no acute fracture or dislocation noted ARYA/PVR ordered, f/u vasc reccs Physical therapy ordered; patient to start low intensity ROM exercises to L lower extremity Patient to weight bear as tolerated Discussed the importance of wearing proper shoe gear at all times Upon discharge, patient to follow up with Dr. Garcia if there are any additional concerns or continued pain Podiatry to sign off at this time
[2018-06-01] MEDS: Metoprolol Succinate 50 mg XL Tab PO SCH ×2 (08:40→19:03)
[2018-06-01] MEDS ORDERED: Non Formulary Medication (Simvastatin [Simvastatin] 20 MG) PO SCH (10:00)
[2018-06-01] MEDS ORDERED: INSULIN GLARGINE HUM REC ANLOG 40 UNIT SC SCH (10:00)
[2018-06-01] MEDS ORDERED: DIGOXIN 250 MCG PO SCH (10:00)
[2018-06-01] MEDS ORDERED: INSULIN LISPRO 10 UNIT SC SCH (10:00)
[2018-06-01] MEDS: Insulin Lispro 1 UNITS/0.01 ML SC SCH ×3 (10:21→18:56)
[2018-06-01] MEDS: Insulin Detemir 100 units/ml Vial (Levemir) SC SCH ×2 (10:22→18:57)
--- NOTE | 2018-06-01 10:41 | CP.PCM.CON ---
<Nima Orona - Last Filed: 06/01/18 12:43> History of Present Illness - History of Present Illness History of Present Illness: 72 year old female with past medical history of DM, A-fib on coumadin, and HLD presents to the hospital after falling at home 2 days ago. Patient notes that she was walking and felt her left leg give out. At this point, she fell and hit her leg and head. At first, she only had minimal pain, but the pain progressively became worse. Patient also admits to her leg becoming swollen during this time. She did not lose consciousness during her fall. Patient states she has numbness and tingling in her legs. Denies chest pain, shortness of breath, nausea, vomiting, diarrhea, fever, chills, dysuria. Medical Hx: DM, A-fib on coumadin, and HLD Surgical Hx: Cholecystectomy, Pacemaker placement Family Hx: Gastric Cancer Social Hx: Denies alcohol, tobacco, or illicit drug use Allergies: Shellfish, Kiwi, Poppyseed oil Medications: Reviewed, as per MAR Review of Systems - Review of Systems Review of Systems: 12 point ROS as per HPI, otherwise negative Past Patient History - Infectious Disease Hx of Infectious Diseases: None - Tetanus Immunizations Tetanus Immunization: Unknown - Past Social History Smoking Status: Never Smoked - CARDIAC Hx Cardiac Disorders: Yes (A fib) - PULMONARY Hx Respiratory Disorders: Yes Hx Asthma: Yes Hx Pneumonia: Yes Hx Respiratory Tract Infection: Yes - NEUROLOGICAL Hx Neurological Disorder: No - HEENT Hx HEENT Problems: Yes (eyeglasses) - RENAL Hx Chronic Kidney Disease: No - ENDOCRINE/METABOLIC Hx Endocrine Disorders: Yes Hx Diabetes Mellitus Type 2: Yes - HEMATOLOGICAL/ONCOLOGICAL Hx Blood Disorders: No - INTEGUMENTARY Hx Dermatological Problems: Yes Other/Comment: healed mid abd wound, right abd hernia noted,ble +1 edema dry discolored skin multiple scabs and discolorations and variscosities - MUSCULOSKELETAL/RHEUMATOLOGICAL Hx Musculoskeletal Disorders: No - GASTROINTESTINAL Hx Gastrointestinal Disorders: Yes (ABDOMINAL PAIN,HERNIORHAPPHY,CHOLEYCYSTECTOMY) Hx Gastroesophageal Reflux: Yes Other/Comment: pt has another right abd hernia no sx due to risk from afib - GENITOURINARY/GYNECOLOGICAL Hx Genitourinary Disorders: Yes Hx Urinary Tract Infection: Yes - PSYCHIATRIC Hx Psychophysiologic Disorder: Yes Hx Anxiety: Yes Hx Substance Use: No - SURGICAL HISTORY Hx Cholecystectomy: Yes Other/Comment: abdominal hernia repair,defibrillator - ANESTHESIA Hx Anesthesia: Yes Hx Anesthesia Reactions: No Hx Malignant Hyperthermia: No Meds Allergies/Adverse Reactions: Allergies Allergy/AdvReac Type Severity Reaction Status Date / Time kiwi Allergy CONGESTION Verified 05/31/18 21:18 poppyseed oil Allergy RASH Verified 05/31/18 21:18 shellfish derived Allergy ANAPHYLAXIS Verified 05/31/18 21:18 - Medications Medications: Current Medications Acetaminophen (Tylenol 325mg Tab) 650 mg PO Q6H PRN PRN Reason: Fever >100.4 F Aspirin (Ecotrin) 81 mg PO DAILY [facility] Last Admin: 06/01/18 10:16 Dose: 81 mg Atorvastatin Calcium (Lipitor) 10 mg PO DIN ANABELLA Digoxin (Lanoxin) 0.25 mg PO 1400 [facility] Donepezil HCl (Aricept) 10 mg PO HS [facility] Last Admin: 05/31/18 21:37 Dose: 10 mg Fluoxetine HCl (Prozac) 10 mg PO DAILY [facility] Last Admin: 06/01/18 10:16 Dose: 10 mg Insulin Detemir (Levemir) 40 unit SC BID [facility] Last Admin: 06/01/18 10:22 Dose: Not Given Insulin Human Lispro (Humalog) 10 units SC [facility] Stop: 06/14/18 07:31 Last Admin: 06/01/18 10:21 Dose: Not Given Losartan Potassium (Cozaar) 100 mg PO DAILY [facility] Last Admin: 06/01/18 10:16 Dose: 100 mg Metformin HCl (Glucophage) 500 mg PO BID [facility] Last Admin: 06/01/18 10:16 Dose: 500 mg Metoprolol Succinate (Toprol Xl) 50 mg PO BRKDIN [facility] Last Admin: 06/01/18 08:40 Dose: 50 mg Tramadol/Acetaminophen (Ultracet 37.5/325 Mg) 1 tab PO TID PRN PRN Reason: Pain, moderate (4-7) Physical Exam - Constitutional Appears: Non-toxic, No Acute Distress - Head Exam Head Exam: ATRAUMATIC, NORMAL INSPECTION, NORMOCEPHALIC - Eye Exam Eye Exam: EOMI, Normal appearance - ENT Exam ENT Exam: Mucous Membranes Moist - Respiratory Exam Respiratory Exam: Clear to Auscultation Bilateral, NORMAL BREATHING PATTERN - Cardiovascular Exam Cardiovascular Exam: RRR, +S1, +S2 - GI/Abdominal Exam GI & Abdominal Exam: Normal Bowel Sounds, Soft. absent: Tenderness - Extremities Exam Extremities exam: Negative for: pedal edema, tenderness Additional comments: Chronic skin changes b/l, no edema - Neurological Exam Neurological exam: Alert, CN II-XII Intact, Oriented x3 - Psychiatric Exam Psychiatric exam: Normal Affect, Normal Mood - Skin Skin Exam: Dry, Intact, Warm Results - Vital Signs Recent Vital Signs: Last Vital Signs Temp 98.1 F 06/01/18 08:49 Pulse 89 06/01/18 08:49 Resp 20 06/01/18 08:49 BP 110/55 L 06/01/18 08:49 Pulse Ox 98 06/01/18 08:49 - Labs Result Diagrams: 06/01/18 06:00 06/01/18 06:00 Labs: Laboratory Results - last 24 hr 05/31/18 05/31/18 05/31/18 15:46 15:46 15:46 WBC 5.4 RBC 4.00 Hgb 10.9 L Hct 34.1 L MCV 85.3 MCH 27.3 MCHC 32.0 RDW 15.1 H Plt Count 65 L MPV 10.4 Gran % 76.7 H Lymph % (Auto) 15.5 L [place] % (Auto) 5.0 Eos % (Auto) 2.4 Baso % (Auto) 0.4 Gran # 4.10 Lymph # (Auto) 0.8 L [place] # (Auto) 0.3 Eos # (Auto) 0.1 Baso # (Auto) 0.02 PT 54.2 H INR 4.61 H* APTT 47.1 H Sodium 136 Potassium 4.8 Chloride 104 Carbon Dioxide 26 Anion Gap 10 BUN 18 Creatinine 0.7 Est GFR ( Amer) > 60 Est GFR (Non-Af Amer) > 60 POC Glucose (mg/dL) Random Glucose 93 Calcium 9.7 Total Bilirubin 0.8 AST 45 H ALT 47 Alkaline Phosphatase 173 H D Total Protein 6.6 Albumin 3.2 Globulin 3.3 Albumin/Globulin Ratio 1.0 L 05/31/18 05/31/18 06/01/18 18:39 21:12 06:00 WBC 4.7 RBC 3.75 Hgb 10.1 L Hct 32.0 L MCV 85.3 MCH 26.9 MCHC 31.6 RDW 15.4 H Plt Count 66 L MPV 10.9 Gran % 69.4 H Lymph % (Auto) 21.7 L [place] % (Auto) 6.4 H Eos % (Auto) 2.1 Baso % (Auto) 0.4 Gran # 3.27 Lymph # (Auto) 1.0 L [place] # (Auto) 0.3 Eos # (Auto) 0.1 Baso # (Auto) 0.02 PT INR APTT Sodium Potassium Chloride Carbon Dioxide Anion Gap BUN Creatinine Est GFR ( Amer) Est GFR (Non-Af Amer) POC Glucose (mg/dL) 86 172 H Random Glucose Calcium Total Bilirubin AST ALT Alkaline Phosphatase Total Protein Albumin Globulin Albumin/Globulin Ratio 06/01/18 06/01/18 06/01/18 06:00 06:00 07:33 WBC RBC Hgb Hct MCV MCH MCHC RDW Plt Count MPV Gran % Lymph % (Auto) [place] % (Auto) Eos % (Auto) Baso % (Auto) Gran # Lymph # (Auto) [place] # (Auto) Eos # (Auto) Baso # (Auto) PT 39.3 H INR 3.33 APTT Sodium 136 Potassium 4.7 Chloride 107 Carbon Dioxide 26 Anion Gap 8 L BUN 17 Creatinine 0.6 L Est GFR ( Amer) > 60 Est GFR (Non-Af Amer) > 60 POC Glucose (mg/dL) 68 Random Glucose 85 Calcium 9.4 Total Bilirubin 0.8 AST 36 ALT 44 Alkaline Phosphatase 135 H D Total Protein 5.8 Albumin 2.7 L Globulin 3.2 Albumin/Globulin Ratio 0.9 L Assessment & Plan - Assessment and Plan (Free Text) Plan: S/p fall Left ankle sprain Hx of A-fib on coumadin Hx of HTN Hx of HLD Hx of Pacemaker placement Plan Patient appears to have chronic skin changes on b/l skin changes along with being afebrile and no leukocytosis. Patient with no active signs of infection presently. Patient will continue to be monitored off of antibiotics. Blood cultures pending. Patient should receive physical therapy and continue current medical regimen. Will continue to monitor. Adwoa, PGY-3 <Mike Harris S - Last Filed: 06/01/18 15:35> Meds - Medications Medications: Current Medications Acetaminophen (Tylenol 325mg Tab) 650 mg PO Q6H PRN PRN Reason: Fever >100.4 F Aspirin (Ecotrin) 81 mg PO DAILY [facility] Last Admin: 06/01/18 10:16 Dose: 81 mg Atorvastatin Calcium (Lipitor) 10 mg PO DIN [facility] Digoxin (Lanoxin) 0.25 mg PO 1400 [facility] Last Admin: 06/01/18 15:31 Dose: 0.25 mg Donepezil HCl (Aricept) 10 mg PO HS [facility] Last Admin: 05/31/18 21:37 Dose: 10 mg Fluoxetine HCl (Prozac) 10 mg PO DAILY [facility] Last Admin: 06/01/18 10:16 Dose: 10 mg Insulin Detemir (Levemir) 40 unit SC BID [facility] Last Admin: 06/01/18 10:22 Dose: Not Given Insulin Human Lispro (Humalog) 10 units SC AC [facility] Stop: 06/14/18 07:31 Last Admin: 06/01/18 12:54 Dose: Not Given Losartan Potassium (Cozaar) 100 mg PO DAILY [facility] Last Admin: 06/01/18 10:16 Dose: 100 mg Metformin HCl (Glucophage) 500 mg PO BID [facility] Last Admin: 06/01/18 10:16 Dose: 500 mg Metoprolol Succinate (Toprol Xl) 50 mg PO BRKDIN [facility] Last Admin: 06/01/18 08:40 Dose: 50 mg Tramadol/Acetaminophen (Ultracet 37.5/325 Mg) 1 tab PO TID PRN PRN Reason: Pain, moderate (4-7) Results - Vital Signs Recent Vital Signs: Last Vital Signs Temp 98.1 F 06/01/18 08:49 Pulse 89 06/01/18 08:49 Resp 20 06/01/18 08:49 BP 110/55 L 06/01/18 08:49 Pulse Ox 98 06/01/18 08:49 - Labs Result Diagrams: 06/01/18 06:00 06/01/18 06:00 Labs: Laboratory Results - last 24 hr 05/31/18 05/31/18 05/31/18 15:46 15:46 15:46 WBC 5.4 RBC 4.00 Hgb 10.9 L Hct 34.1 L MCV 85.3 MCH 27.3 MCHC 32.0 RDW 15.1 H Plt Count 65 L MPV 10.4 Gran % 76.7 H Lymph % (Auto) 15.5 L [place] % (Auto) 5.0 Eos % (Auto) 2.4 Baso % (Auto) 0.4 Gran # 4.10 Lymph # (Auto) 0.8 L [place] # (Auto) 0.3 Eos # (Auto) 0.1 Baso # (Auto) 0.02 PT 54.2 H INR 4.61 H* APTT 47.1 H Sodium 136 Potassium 4.8 Chloride 104 Carbon Dioxide 26 Anion Gap 10 BUN 18 Creatinine 0.7 Est GFR ( Amer) > 60 Est GFR (Non-Af Amer) > 60 POC Glucose (mg/dL) Random Glucose 93 Calcium 9.7 Total Bilirubin 0.8 AST 45 H ALT 47 Alkaline Phosphatase 173 H D Total Protein 6.6 Albumin 3.2 Globulin 3.3 Albumin/Globulin Ratio 1.0 L 05/31/18 05/31/18 06/01/18 18:39 21:12 06:00 WBC 4.7 RBC 3.75 Hgb 10.1 L Hct 32.0 L MCV 85.3 MCH 26.9 MCHC 31.6 RDW 15.4 H Plt Count 66 L MPV 10.9 Gran % 69.4 H Lymph % (Auto) 21.7 L [place] % (Auto) 6.4 H Eos % (Auto) 2.1 Baso % (Auto) 0.4 Gran # 3.27 Lymph # (Auto) 1.0 L [place] # (Auto) 0.3 Eos # (Auto) 0.1 Baso # (Auto) 0.02 PT INR APTT Sodium Potassium Chloride Carbon Dioxide Anion Gap BUN Creatinine Est GFR ( Amer) Est GFR (Non-Af Amer) POC Glucose (mg/dL) 86 172 H Random Glucose Calcium Total Bilirubin AST ALT Alkaline Phosphatase Total Protein Albumin Globulin Albumin/Globulin Ratio 06/01/18 06/01/18 06/01/18 06:00 06:00 07:33 WBC RBC Hgb Hct MCV MCH MCHC RDW Plt Count MPV Gran % Lymph % (Auto) [place] % (Auto) Eos % (Auto) Baso % (Auto) Gran # Lymph # (Auto) [place] # (Auto) Eos # (Auto) Baso # (Auto) PT 39.3 H INR 3.33 APTT Sodium 136 Potassium 4.7 Chloride 107 Carbon Dioxide 26 Anion Gap 8 L BUN 17 Creatinine 0.6 L Est GFR ( Amer) > 60 Est GFR (Non-Af Amer) > 60 POC Glucose (mg/dL) 68 Random Glucose 85 Calcium 9.4 Total Bilirubin 0.8 AST 36 ALT 44 Alkaline Phosphatase 135 H D Total Protein 5.8 Albumin 2.7 L Globulin 3.2 Albumin/Globulin Ratio 0.9 L Assessment & Plan - Assessment and Plan (Free Text) Plan: Infectious diseases Attending Physician Attestation Patient seen and examined, discussed with medical assistant float. I have reviewed the patient's history of present illness, past medical, social, personal and family histories, pertinent physical exam findings, course so far in this hospital admission, pertinent laboratory and imaging results. I agree with the above findings, assessment and plan. In addition, patient has no evidence of skin and skin structure infection - will monitor off antibiotics. Follow up blood cx.
--- NOTE | 2018-06-01 14:57 | US ---
PROCEDURE: Lower extremity ARYA exam HISTORY: Peripheral vascular disease with pain and claudication. Diabetes PHYSICIAN(S): Frank Mcneal MD. FINDINGS: The exam is limited by calcified, noncompressible vessels. The resting ABIs are not obtainable The brachial systolic pressures are symmetric. The PVR waveforms are normal and symmetric at all levels bilaterally IMPRESSION: 1. Limited study due to calcified, noncompressible vessels. 2. The PVR waveforms are normal and symmetric at all levels.
--- NOTE | 2018-06-01 15:02 | PN ---
DATE: 06/01/2018 SUBJECTIVE: The patient is a 72-year-old who fell at home, started to have swelling of left ankle and having difficulty walking, so she was brought to the emergency room for evaluation. X-rays are negative for fracture, started on IV antibiotics, seems to be doing better, swelling has come down. PHYSICAL EXAMINATION: GENERAL: On examination the patient is awake, alert, oriented and communicative. VITAL SIGNS: The patient is afebrile, pulse 89, respirations 20 and blood pressure 110/55. LUNGS: Bilateral fair airflow. No rhonchi or crackle. HEART: S1 and S2 audible. ABDOMEN: Soft and nontender. No rebound. No guarding. NEUROLOGIC: The patient is awake, alert, oriented, and communicative. Has limited range of motion because of recent sprain to the left ankle, erythema seems to subsiding. LABORATORY DATA: WBC is 4.7, hemoglobin 10, hematocrit 32.0, and platelets 66. PT 39.3 and INR 3.33. Chemistry; sodium 136, potassium 4.7, chloride 107, CO2 of 26, BUN 17, creatinine 0.6, blood sugar 68 . ASSESSMENT AND PLAN: 1. Deconditioning and difficulty walking. 2. Status post fall, left ankle sprain. 3. Left ankle cellulitis. 4. Chronic atrial fibrillation. 5. Hypertension. 6. Status post pacemaker placement. 7. Insulin-dependent diabetes. 8. Thrombocytopenia. 9. . PLAN: We will get physical therapy evaluation, might be candidate of either TCU or subacute rehab. We will wait for physical therapy evaluation and make further decision. We will continue to monitor blood sugar. We will followup in a.m. Olvin Dejesus MD
[2018-06-01] MEDS: Digoxin 250 mcg (0.25 mg) Tab PO SCH (15:31)
[2018-06-01 15:34] VITALS: PULSE 70
[2018-06-02 07:03] VITALS: RESP 20
[2018-06-02] MEDS: Insulin Lispro 1 UNITS/0.01 ML SC SCH ×3 (08:36→17:20)
[2018-06-02] MEDS: Metoprolol Succinate 50 mg XL Tab PO SCH ×2 (09:54→17:27)
[2018-06-02] MEDS: Insulin Detemir 100 units/ml Vial (Levemir) SC SCH ×2 (09:57→17:26)
[2018-06-02] MEDS ORDERED: POLYETHYLENE GLYCOL 3350 17 GM/Dose PACKET PO SCH (10:00)
--- NOTE | 2018-06-02 12:32 | CP.PCM.PCO ---
Physician Communication Note - Physician Communication Note Physician Communication Note: Physical therapist recs GREG,after reeval this am. Medically cleared for DC
--- NOTE | 2018-06-02 13:51 | CP.PCM.PN ---
<Nima Orona - Last Filed: 06/02/18 13:48> Subjective - Date & Time of Evaluation Date of Evaluation: 06/02/18 Time of Evaluation: 09:00 - Subjective Subjective: Patient seen at bedside. Patient tolerating diet and admits to improvement in pain. Patient working with physical therapy. Denies chest pain, shortness of breath, nausea, vomiting, diarrhea, fever, chills. Objective - Vital Signs/Intake and Output Vital Signs (last 24 hours): Temp Pulse Resp BP Pulse Ox 98.0 F 75 20 119/58 L 93 L 06/02/18 06:00 06/02/18 09:54 06/02/18 06:00 06/02/18 09:54 06/02/18 06:00 Intake and Output: 06/02/18 06/02/18 06:59 18:59 Intake Total 240 Balance 240 - Medications Medications: Current Medications Acetaminophen (Tylenol 325mg Tab) 650 mg PO Q6H PRN PRN Reason: Fever >100.4 F Aspirin (Ecotrin) 81 mg PO DAILY [facility] Last Admin: 06/02/18 09:52 Dose: 81 mg Atorvastatin Calcium (Lipitor) 10 mg PO DIN [facility] Last Admin: 06/01/18 18:56 Dose: 10 mg Digoxin (Lanoxin) 0.25 mg PO 1400 [facility] Last Admin: 06/01/18 15:31 Dose: 0.25 mg Donepezil HCl (Aricept) 10 mg PO HS [facility] Last Admin: 06/01/18 22:11 Dose: 10 mg Fluoxetine HCl (Prozac) 10 mg PO DAILY [facility] Last Admin: 06/02/18 09:54 Dose: 10 mg Insulin Detemir (Levemir) 40 unit SC BID [facility] Last Admin: 06/02/18 09:57 Dose: 40 unit Insulin Human Lispro (Humalog) 10 units SC AC [facility] Stop: 06/14/18 07:31 Last Admin: 06/02/18 12:49 Dose: Not Given Losartan Potassium (Cozaar) 100 mg PO DAILY [facility] Last Admin: 06/02/18 09:47 Dose: 100 mg Metformin HCl (Glucophage) 500 mg PO BID [facility] Last Admin: 06/02/18 09:52 Dose: 500 mg Metoprolol Succinate (Toprol Xl) 50 mg PO BRKDIN [facility] Last Admin: 06/02/18 09:54 Dose: 50 mg Tramadol/Acetaminophen (Ultracet 37.5/325 Mg) 1 tab PO TID PRN PRN Reason: Pain, moderate (4-7) - Labs Labs: 06/01/18 06:00 06/01/18 06:00 PT 39.3 SECONDS (9.4-12.5) H 06/01/18 06:00 INR 3.33 06/01/18 06:00 APTT 47.1 Seconds (25.1-36.5) H 05/31/18 15:46 - Constitutional Appears: Non-toxic, No Acute Distress - Head Exam Head Exam: ATRAUMATIC, NORMAL INSPECTION, NORMOCEPHALIC - ENT Exam ENT Exam: Mucous Membranes Moist - Respiratory Exam Respiratory Exam: Clear to Ausculation Bilateral, NORMAL BREATHING PATTERN - Cardiovascular Exam Cardiovascular Exam: RRR, +S1, +S2 - GI/Abdominal Exam GI & Abdominal Exam: Soft, Normal Bowel Sounds. absent: Tenderness - Extremities Exam Extremities Exam: absent: Tenderness Additional comments: Left foot bandaged - Neurological Exam Neurological Exam: Alert, Awake, CN II-XII Intact, Oriented x3 - Psychiatric Exam Psychiatric exam: Normal Affect, Normal Mood - Skin Skin Exam: Dry, Intact, Warm Assessment and Plan - Assessment and Plan (Free Text) Plan: S/p fall Left ankle sprain Hx of A-fib on coumadin Hx of HTN Hx of HLD Hx of Pacemaker placement Plan Continue to monitor off antibiotics Blood cultures negative Continue physical therapy Continue current medical regimen Adwoa, PGY-3 <Mike Harris S - Last Filed: 06/02/18 14:44> Objective - Vital Signs/Intake and Output Vital Signs (last 24 hours): Temp Pulse Resp BP Pulse Ox 98.0 F 75 20 119/58 L 93 L 06/02/18 06:00 06/02/18 09:54 06/02/18 06:00 06/02/18 09:54 06/02/18 06:00 Intake and Output: 06/02/18 06/02/18 06:59 18:59 Intake Total 240 Balance 240 - Medications Medications: Current Medications Acetaminophen (Tylenol 325mg Tab) 650 mg PO Q6H PRN PRN Reason: Fever >100.4 F Aspirin (Ecotrin) 81 mg PO DAILY [facility] Last Admin: 06/02/18 09:52 Dose: 81 mg Atorvastatin Calcium (Lipitor) 10 mg PO DIN [facility] Last Admin: 06/01/18 18:56 Dose: 10 mg Digoxin (Lanoxin) 0.25 mg PO 1400 [facility] Last Admin: 06/01/18 15:31 Dose: 0.25 mg Donepezil HCl (Aricept) 10 mg PO HS [facility] Last Admin: 06/01/18 22:11 Dose: 10 mg Fluoxetine HCl (Prozac) 10 mg PO DAILY [facility] Last Admin: 06/02/18 09:54 Dose: 10 mg Insulin Detemir (Levemir) 40 unit SC BID [facility] Last Admin: 06/02/18 09:57 Dose: 40 unit Insulin Human Lispro (Humalog) 10 units SC AC [facility] Stop: 06/14/18 07:31 Last Admin: 06/02/18 12:49 Dose: Not Given Losartan Potassium (Cozaar) 100 mg PO DAILY [facility] Last Admin: 06/02/18 09:47 Dose: 100 mg Metformin HCl (Glucophage) 500 mg PO BID [facility] Last Admin: 06/02/18 09:52 Dose: 500 mg Metoprolol Succinate (Toprol Xl) 50 mg PO BRKDIN [facility] Last Admin: 06/02/18 09:54 Dose: 50 mg Tramadol/Acetaminophen (Ultracet 37.5/325 Mg) 1 tab PO TID PRN PRN Reason: Pain, moderate (4-7) - Labs Labs: 06/01/18 06:00 06/01/18 06:00 PT 39.3 SECONDS (9.4-12.5) H 06/01/18 06:00 INR 3.33 06/01/18 06:00 APTT 47.1 Seconds (25.1-36.5) H 05/31/18 15:46 Assessment and Plan - Assessment and Plan (Free Text) Plan: Infectious diseases Attending Physician Attestation Patient seen and examined, discussed with medical reimbursement specialist. I have reviewed the patient's history of present illness, past medical, social, personal and family histories, pertinent physical exam findings, course so far in this hospital admission, pertinent laboratory and imaging results. I agree with the above findings, assessment and plan.
[2018-06-02] MEDS: Digoxin 250 mcg (0.25 mg) Tab PO SCH (14:00)
--- NOTE | 2018-06-02 14:15 | CP.PCM.PCO ---
Physician Communication Note - Physician Communication Note Physician Communication Note: Patient accepted to TCU, per Radha, bed ready today, awaiting dC order,
[2018-06-02 17:21] VITALS: BP 107/58; PULSE 74; TEMP 98.5; O2SAT 96
--- NOTE | 2018-06-05 09:24 | DS ---
HISTORY OF PRESENT ILLNESS: The patient is a 72-year-old, who came to the emergency room on 05/31/2018, coming to the hospital, she tripped on her slipper and she twisted her left ankle since she was having difficulty walking. She got swelling of her left ankle. So, the patient was initially given IV antibiotic, but her swelling improved within 24 hours. It was probably ankle sprain. The patient was having difficulty walking. She was limping. High risk for fall, so she was evaluated by TCU team and she was accepted and being transferred to TCU today. PHYSICAL EXAMINATION: GENERAL: Today, she is awake, alert, oriented and communicative. VITAL SIGNS: The patient is afebrile, pulse 74, respirations 20 and blood pressure 107/58. LUNGS: Bilateral fair airflow. No rhonchi or crackle. HEART: S1 and S2 audible. ABDOMEN: Soft and nontender. No rebound. No guarding. NEUROLOGIC: The patient is awake, alert, oriented, and communicative. Left ankle is in the dressing, swelling seems to be improving. LABORATORY DATA: WBC is 4.7, hemoglobin 10, hematocrit 32, and platelets 66. PT 39.3 and INR 3.33. Chemistry; blood sugar 138. ASSESSMENT AND PLAN: 1. Deconditioning and difficulty walking. 2. Status post fall. 3. Left ankle sprain. 4. Hypertension. 5. Hyperlipidemia. 6. Chronic atrial fibrillation. 7. Coronary artery disease status post pacemaker placement. PLAN: The patient is being transferred to TCU for further rehab. We will monitor her PT/INR. Encourage physical therapy. We will monitor her blood sugar. We will follow up in TCU. Olvin Dejesus MD
== END 2018-06-02 19:01 | DRG 563 ==
LOC: ED 13:04 → ERH 17:11 → 3RSO 18:49 → 3RNO 06-02 11:46
PROVIDERS: ADMIT Internal Medicine; ATTEND Internal Medicine
DX: S93.402A Sprain of unspecified ligament of left ankle, initial encounter (principal); L03.116 Cellulitis of left lower limb; I48.2 Chronic atrial fibrillation; I25.10 Atherosclerotic heart disease of native coronary artery without angina pectoris; E11.9 Type 2 diabetes mellitus without complications; D69.6 Thrombocytopenia, unspecified; I11.0 Hypertensive heart disease with heart failure; I50.9 Heart failure, unspecified; K21.9 Gastro-esophageal reflux disease without esophagitis; E78.5 Hyperlipidemia, unspecified; W01.0XXA Fall on same level from slipping, tripping and stumbling without subsequent striking against object, initial encounter; Y92.009 Unspecified place in unspecified non-institutional (private) residence as the place of occurrence of the external cause; Z79.01 Long term (current) use of anticoagulants; Z79.82 Long term (current) use of aspirin; Z79.4 Long term (current) use of insulin; Z95.0 Presence of cardiac pacemaker

== ENCOUNTER 2018-06-02 19:20 | Inpatient (IN) | payer OTHER ==
[2018-06-02] MEDS: TraMADol/Apap 37.5/325 mg Tab PO PRN (21:45)
[2018-06-02] MEDS ORDERED: Pneumococcal 23-Valent Vaccine IM ONE (22:04)
[2018-06-02] MEDS ORDERED: Influenza Vaccine 60 mcg/0.5 mL SYR (4YR UP) IM ONE (22:04)
[2018-06-02] MEDS: Insulin Detemir 100 units/ml Vial (Levemir) SC SCH (22:10)
[2018-06-03] MEDS: TraMADol/Apap 37.5/325 mg Tab PO PRN ×2 (06:06→22:34)
[2018-06-03 07:02] LABS: INR 1.51; PROTHROMBIN TIME 17.5 SECONDS (9.4-12.5)
[2018-06-03] MEDS: Insulin Lispro 1 UNITS/0.01 ML SC SCH ×3 (07:32→17:07)
[2018-06-03] MEDS: Metoprolol Succinate 50 mg XL Tab PO SCH ×2 (08:06→17:07)
[2018-06-03] MEDS: Insulin Detemir 100 units/ml Vial (Levemir) SC SCH ×2 (09:05→21:40)
--- NOTE | 2018-06-03 11:22 | CON ---
DATE OF CONSULTATION: 06/03/2018 The patient is seen in Transitional Care in Room 318. CHIEF COMPLAINT: Weakness times several days. HISTORY OF PRESENT ILLNESS: This is a 72-year-old female with past medical history of diabetes mellitus, atrial fibrillation, on Coumadin, and hyperlipidemia, who was admitted in acute care hospital setting after a fall. The patient denied any fevers, any chills, and no nausea or vomiting or chest pain, no shortness of breath and no abdominal pain. PAST MEDICAL HISTORY: Significant for atrial fibrillation, on Coumadin, hyperlipidemia and diabetes. PAST SURGICAL HISTORY: Significant for a pacemaker placement. The patient also with a cholecystectomy. MEDICATIONS AT THE ACUTE CARE: Reviewed. ALLERGIES: THE PATIENT IS ALLERGIC TO K[place], POPPY SEED OIL, AND SHELLFISH. PHYSICAL EXAMINATION: GENERAL: The patient is in bed in no acute distress. VITAL SIGNS: Temperature of 98, pulse of 75, respiratory rate 20, heart rate of 119/58. HEENT: Unremarkable. NECK: Supple. LUNGS: Decreased breath sounds. HEART: Normal S1 and S2. ABDOMEN: Soft, nontender. EXTREMITIES: Noted. LABORATORY EXAMINATION: White count of 4.7, hemoglobin of 10, platelets of 66,000. Chemistries are noted. ASSESSMENT AND PLAN: This is a 72-year-old female with diabetes, atrial fibrillation, hyperlipidemia, status post fall, left ankle sprain. No evidence of infection. Off of antibiotics with negative blood cultures. White count normal. The patient is afebrile. Ankle x-ray is reviewed. The patient is at risk for developing nosocomial infections. We will follow closely with you. Review of orders confirms the patient to be off of antibiotics. Cameron Gonzalez MD
[2018-06-03] MEDS: Digoxin 250 mcg (0.25 mg) Tab PO SCH (13:33)
[2018-06-04] MEDS: Insulin Lispro 1 UNITS/0.01 ML SC SCH ×3 (08:06→17:50)
[2018-06-04] MEDS: Metoprolol Succinate 50 mg XL Tab PO SCH ×2 (08:07→17:54)
[2018-06-04] MEDS: Insulin Detemir 100 units/ml Vial (Levemir) SC SCH ×2 (10:47→21:20)
--- NOTE | 2018-06-04 13:43 | PN ---
DATE: 06/04/2018 SUBJECTIVE: The patient has no complaints of any chest pain, no shortness of breath, no headaches or dizziness. OBJECTIVE: VITAL SIGNS: Temperature is 97.6, pulse of 73, blood pressure 109/59, respirations 18. GENERAL: The patient is lying in bed, flat, comfortable. HEENT: No oral lesion. Anicteric sclerae. Moist mucosa. NECK: No JVD, adenopathy, or thyromegaly. CARDIOVASCULAR: S1 and S2, regular. No murmurs, rubs, or gallops. LUNGS: Clear to auscultation bilaterally. No wheeze, rales, or rhonchi. ABDOMEN: Bowel sounds are positive, soft, nontender and nondistended. EXTREMITIES: No cyanosis, clubbing or edema. ASSESSMENT: 1. Left leg cellulitis. 2. Fall. 3. Hypertension. 4. Atrial fibrillation on anticoagulation. 5. Dyslipidemia. 6. Thrombocytopenia. 7. Cirrhosis of liver. PLAN: The patient is on Aricept. She is going to continue with Coumadin for her atrial fibrillation. She has an INR that is 1.5. The patient is on losartan for hypertension, she is on aspirin daily. The patient on metformin for diabetes type 2, she is going to continue with Levemir for diabetes. She is on Lipitor for dyslipidemia. The patient is on metoprolol for her hypertension. She is on Ultracet for pain. She is on a heart-healthy diet. She is getting physical therapy, will continue. Eugene Romero MD
[2018-06-04] MEDS: Digoxin 250 mcg (0.25 mg) Tab PO SCH (14:44)
--- NOTE | 2018-06-04 15:19 | PN ---
DATE: 06/04/2018 SUBJECTIVE: The patient is in bed, in no acute distress, nontoxic. PHYSICAL EXAMINATION: VITAL SIGNS: Temperature is 97, blood pressure is 97/40, respiratory rate of 18. HEENT: Examination of HEENT is unremarkable. NECK: Supple. LUNGS: Have decreased breath sounds. HEART: Normal S1 and S2. ABDOMEN: Soft, nontender. LABORATORY DATA: Laboratory examination is noted. ASSESSMENT AND PLAN: This is a 72-year-old female, who is seen in room 318. She is ambulating better this morning. She is doing well with diabetes mellitus, atrial fibrillation on Coumadin, hyperlipidemia, who was admitted to the acute care after a fall. Currently, the patient is off antibiotics, afebrile, and the patient does have the left ankle sprain and review of orders confirms the patient to be off antibiotics. The patient is at risk for developing nosocomial infections. Cameron Gonzalez MD
[2018-06-05] MEDS: Insulin Lispro 1 UNITS/0.01 ML SC SCH ×3 (07:01→17:30)
[2018-06-05] MEDS: Metoprolol Succinate 50 mg XL Tab PO SCH ×2 (07:01→17:45)
--- NOTE | 2018-06-05 08:27 | HP ---
DATE OF EXAM: 06/03/2018 HISTORY OF PRESENT ILLNESS: The patient is a 72-year-old who came to Emergency room because of fall. She states she tripped because I think she lost balance from her slippers hurting her left ankle. Her ankle was swollen and initial impression was cellulitis, however, it was found to have a bad sprain. She responded to compression stockings and antiinflammatory. The patient has difficulty walking. She is a high risk of fall again, so she was transferred to TCU for rehab. PAST MEDICAL HISTORY: She has past medical history significant for: 1. Chronic atrial fibrillation, has pacemaker. 2. Pulmonary artery disease. 3. Hypertension. 4. Insulin-dependent diabetes. 5. Hyperlipidemia. 6. Thrombocytopenia. 7. Cardiac cirrhosis. 8. History of mediastinal lymphadenopathy. ALLERGIES: SHE IS ALLERGIC TO K[place], POPPY SEEDS AND SHELLFISH DERIVATIVE. MEDICATIONS: At home, she is on 1. Metformin 500 twice a day. 2. Coumadin 3 mg three times a week and 4 mg four times a week. 3. Simvastatin 20 mg daily. 4. Prilosec 40 mg daily. 5. Losartan 100 mg daily. 6. Humalog 10 units before each meal. 7. She is on Levemir 40 units twice a day. 8. She is on Prozac 10 mg daily. 9. Aricept 10 mg daily. 10. Digoxin 0.25 mg daily. 11. Lipitor 10 mg daily. 12. Aspirin 81 daily. SOCIAL HISTORY: She is , lives with her . Denies smoking, drinking or alcohol use. PHYSICAL EXAMINATION GENERAL: Today she is awake, alert, oriented, communicative. VITAL SIGNS: She is afebrile, pulse 61, respirations 19, blood pressure 107/61. LUNGS: Bilateral good air flow. No rhonchi or crackles. HEART: S1, S2, audible. ABDOMEN: Soft, nontender. No rebound. No guarding. NEUROLOGICAL: The patient is awake, alert, oriented, communicative, able to ambulate. LABORATORY DATA: PTT 17.5, INR 1.15. Chemistry; sodium 123. ASSESSMENT: 1. Status post fall. 2. Left ankle sprain. 3. Deconditioning difficulty walking. 4. Hypertension. 5. Hyperlipidemia. 6. Coronary artery disease. 7. Chronic atrial fibrillation. 8. Insulin-dependent diabetes. PLAN: We will give her Coumadin 5 mg today. We will follow up again around Tuesday. We will continue all other medications. We will follow up in the a.m. Olvin Dejesus MD
[2018-06-05] MEDS: Insulin Detemir 100 units/ml Vial (Levemir) SC SCH ×2 (10:38→21:57)
--- NOTE | 2018-06-05 13:50 | CP.PCM.PN ---
Subjective - Date & Time of Evaluation Date of Evaluation: 06/05/18 Time of Evaluation: 11:10 - Subjective Subjective: Afebrile, comfortable. Objective - Vital Signs/Intake and Output Vital Signs (last 24 hours): Temp Pulse Resp BP Pulse Ox 97.6 F 75 20 103/49 L 96 06/05/18 10:00 06/05/18 10:00 06/05/18 10:00 06/05/18 10:00 06/05/18 10:00 - Medications Medications: Current Medications Acetaminophen (Tylenol 325mg Tab) 650 mg PO Q6H PRN; Protocol PRN Reason: Fever >100.4 F Aspirin (Ecotrin) 81 mg PO 0800 ANABELLA; Protocol Last Admin: 06/05/18 07:48 Dose: 81 mg Atorvastatin Calcium (Lipitor) 10 mg PO DIN NAABELLA; Protocol Last Admin: 06/04/18 17:54 Dose: 10 mg Digoxin (Lanoxin) 0.25 mg PO 1400 ANABELLA; Protocol Last Admin: 06/04/18 14:44 Dose: 0.25 mg Donepezil HCl (Aricept) 10 mg PO HS [facility]; Protocol Last Admin: 06/04/18 21:19 Dose: 10 mg Fluoxetine HCl (Prozac) 10 mg PO DAILY ANABELLA; Protocol Last Admin: 06/05/18 10:38 Dose: 10 mg Insulin Detemir (Levemir) 40 unit SC Q12 ANABELLA; Protocol Last Admin: 06/05/18 10:38 Dose: Not Given Insulin Human Lispro (Humalog) 10 units SC AC ANABELLA; Protocol Last Admin: 06/05/18 12:30 Dose: Not Given Losartan Potassium (Cozaar) 100 mg PO DAILY [facility]; Protocol Last Admin: 06/05/18 10:37 Dose: Not Given Metformin HCl (Glucophage) 500 mg PO BID [facility]; Protocol Last Admin: 06/05/18 10:37 Dose: Not Given Metoprolol Succinate (Toprol Xl) 50 mg PO BRKDIN [facility]; Protocol Last Admin: 06/05/18 07:01 Dose: Not Given Tramadol/Acetaminophen (Ultracet 37.5/325 Mg) 1 tab PO TID PRN; Protocol PRN Reason: Pain, moderate (4-7) Last Admin: 06/03/18 22:34 Dose: 1 tab Warfarin Sodium (Coumadin) 5 mg PO 1800 ANABELLA; Protocol Last Admin: 06/04/18 17:51 Dose: 5 mg - Labs Labs: PT 17.5 SECONDS (9.4-12.5) H 06/03/18 06:30 INR 1.51 06/03/18 06:30 - Constitutional Appears: No Acute Distress, Chronically Ill - Head Exam Head Exam: NORMAL INSPECTION - Neck Exam Neck Exam: absent: Meningismus - Respiratory Exam Respiratory Exam: Decreased Breath Sounds - Cardiovascular Exam Cardiovascular Exam: +S1, +S2 - GI/Abdominal Exam GI & Abdominal Exam: Soft. absent: Tenderness - Extremities Exam Additional comments: dry wounds on both lower extremities Assessment and Plan - Assessment and Plan (Free Text) Plan: Assessment chronic bilateral lower extremity wounds without evidence of cellulitis history of sepsis secondary to systemic viral syndrome, consider Influenza and atypical pneumonia HTN DM asthma CAD with chronic CHF with probable cardiac cirrhosis S/P AICD placement S/P cholecystectomy S/P mediastinal lymph node biopsy Plan Continue to monitor off antibiotics since she is at risk for nosocomial infecti ons
[2018-06-05] MEDS: Digoxin 250 mcg (0.25 mg) Tab PO SCH (14:06)
--- NOTE | 2018-06-05 17:26 | PN ---
DATE: 06/05/2018 SUBJECTIVE: The patient is 72 years old, seen and examined, doing well, participating in therapy, walking better. PHYSICAL EXAMINATION: VITAL SIGNS: She is afebrile. Pulse 75, respirations 20, and blood pressure 103/49. LUNGS: Bilateral fair airflow. No rhonchi or crackle. HEART: S1 and S2 audible. ABDOMEN: Soft, obese, and nontender. No rebound. No guarding. NEUROLOGICAL: The patient is awake, alert, oriented, and communicative. LABORATORY DATA: Blood sugar is 101. ASSESSMENT AND PLAN: 1. Chronic atrial fibrillation. 2. Status post fall and left ankle sprain. 3. Hypertension. 4. Hyperlipidemia. 5. Thrombocytopenia. 6. Insulin-dependent diabetes. PLAN: We will continue physical therapy and gait training, give her Coumadin, follow up PT/INR in a.m. and monitor her blood sugar. Olvin Dejesus MD
[2018-06-06] MEDS: Insulin Lispro 1 UNITS/0.01 ML SC SCH ×3 (06:48→17:44)
[2018-06-06] MEDS: Metoprolol Succinate 50 mg XL Tab PO SCH ×2 (08:23→17:45)
[2018-06-06] MEDS: Insulin Detemir 100 units/ml Vial (Levemir) SC SCH ×2 (09:32→21:56)
[2018-06-06] MEDS: TraMADol/Apap 37.5/325 mg Tab PO PRN (09:36)
--- NOTE | 2018-06-06 12:31 | PN ---
DATE: 06/06/2018 SUBJECTIVE: The patient is in bed, in no acute distress, nontoxic. OBJECTIVE: VITAL SIGNS: Temperature is 98, blood pressure is 103/40, respiratory rate of 20, heart rate of 75. HEENT: Unremarkable. NECK: Supple. LUNGS: Decreased breath sounds. HEART: Normal S1, S2. ABDOMEN: Soft. LABORATORY EXAMINATION: Reviewed. Review of orders reveals the patient to be off of antibiotics. ASSESSMENT AND PLAN: A 72-year-old with a chronic bilateral lower extremity wounds without any evidence of cellulitis and hypertension, diabetes, asthma, coronary artery disease, congestive heart failure, probable cardiac cirrhosis, automatic implantable cardioverter defibrillator placement, history of cholecystectomy, history of lymph node biopsy. Currently, off of antibiotics, afebrile. The patient is at risk for developing nosocomial infections. Cameron Gonzalez MD
[2018-06-06] MEDS: Digoxin 250 mcg (0.25 mg) Tab PO SCH (13:57)
--- NOTE | 2018-06-06 16:06 | PN ---
DATE: 06/06/2018 SUBJECTIVE: The patient has no complaints of any chest pain. No shortness of breath or headache. OBJECTIVE: VITAL SIGNS: Temperature is 98.1, pulse of 77, blood pressure is 98/50, and respirations 20. GENERAL: The patient is lying in bed, flat, comfortable. HEENT: No oral lesion. Anicteric sclerae. Moist mucosa. NECK: No JVD, adenopathy, or thyromegaly. CARDIOVASCULAR: S1 and S2, regular. No murmurs, rubs, or gallops. LUNGS: Clear to auscultation bilaterally. No wheeze, rales, or rhonchi. ABDOMEN: Bowel sounds are positive, soft, nontender and nondistended. EXTREMITIES: No cyanosis, clubbing or edema. ASSESSMENT: 1. Left leg cellulitis. 2. Fall. 3. Hypertension. 4. Atrial fibrillation, on anticoagulation. 5. Dyslipidemia. 6. Thrombocytopenia. 7. Cirrhosis of liver. 8. Diabetes type 2. PLAN: The patient is currently on transitional care unit for rehab. The patient is on Aricept, this will be continued. The patient is on Coumadin. The patient has an INR that is 1.5. I will repeat the patient's INR tomorrow. The patient is on aspirin daily, is on insulin and metformin for diabetes. The patient is on digoxin and Lipitor for dyslipidemia, is going to continue with Ultracet for pain. She is on a heart-healthy diet. Eugene Romero MD
[2018-06-07] MEDS: TraMADol/Apap 37.5/325 mg Tab PO PRN (00:19)
[2018-06-07 06:35] LABS: INR 1.91; PROTHROMBIN TIME 22.2 SECONDS (9.4-12.5)
[2018-06-07] MEDS: Insulin Lispro 1 UNITS/0.01 ML SC SCH ×2 (06:56→17:12)
[2018-06-07] MEDS: Metoprolol Succinate 50 mg XL Tab PO SCH ×2 (06:57→17:13)
[2018-06-07] MEDS: Insulin Detemir 100 units/ml Vial (Levemir) SC SCH ×2 (10:19→22:00)
--- NOTE | 2018-06-07 12:56 | PN ---
DATE: 06/07/2018 SUBJECTIVE: Patient is an 72-year-old seen and examined, doing better, participating in therapy. No nausea or vomiting. No diarrhea. Eating and tolerating. PHYSICAL EXAMINATION: VITAL SIGNS: The patient is afebrile. Pulse 72, respirations 19, blood pressure 98/50. LUNGS: Bilateral fair airflow. No rhonchi or crackles. HEART: S1 and S2 audible. ABDOMEN: Soft, obese, and nontender. No rebound. No guarding. NEUROLOGIC: The patient is awake. alert, oriented, able to communicate. Moves all extremities. Participating in therapy. LABORATORY EXAM: PT is 22.2, INR 1.91. Chemistry: Blood sugar 136. Blood cultures are negative. ASSESSMENT: 1. Left ankle cellulitis that has resolved, but actually she had ankle sprain, improving. 2. Chronic atrial fibrillation. 3. Thrombocytopenia. 4. Hypertension. 5. Hyperlipidemia. 6. Status post pacemaker placement. PLAN: So plan is, we will continue patient on current medication. We will give her Aricept. We will give Coumadin 5 mg today. We will followup PT, INR. possible discharge over the . Olvin Dejesus MD
[2018-06-07] MEDS: Digoxin 250 mcg (0.25 mg) Tab PO SCH (14:38)
[2018-06-07 16:43] VITALS: RESP 20; TEMP 98.1; O2SAT 99
--- NOTE | 2018-06-08 01:34 | PN ---
DATE: 06/07/2018 SUBJECTIVE: The patient is in bed, no acute distress, nontoxic. PHYSICAL EXAMINATION: VITAL SIGNS: Temperature is 98, blood pressure is 108/60, respiratory rate 18. HEENT: Unremarkable. NECK: Supple. LUNGS: Have decreased breath sounds. HEART: Normal S1, S2. ABDOMEN: Soft, nontender. LABORATORY DATA: Laboratory examination is noted. ASSESSMENT AND PLAN: A 72-year-old female with chronic bilateral lower extremity wound without any evidence of cellulitis, hypertension, diabetes, asthma, coronary artery disease, congestive heart failure, probable cardiac cirrhosis, implantable cardioverter-defibrillator placement, history of cholecystectomy, and history of lymph node biopsy. Currently, off of antibiotics, afebrile. The patient is at risk for developing nosocomial infections. We will follow with you. Cameron Gonzalez MD
[2018-06-08] MEDS: Metoprolol Succinate 50 mg XL Tab PO SCH (06:50)
[2018-06-08] MEDS: Insulin Lispro 1 UNITS/0.01 ML SC SCH ×2 (06:50→11:12)
[2018-06-08 06:51] VITALS: BP 89/54; PULSE 70
[2018-06-08] MEDS: Insulin Detemir 100 units/ml Vial (Levemir) SC SCH (09:59)
[2018-06-08] MEDS: Digoxin 250 mcg (0.25 mg) Tab PO SCH (13:15)
[2018-06-08 13:39] VITALS: PULSE 64
--- NOTE | 2018-06-08 21:10 | DS ---
HISTORY OF PRESENT ILLNESS: The patient is 72-year-old, came in because of fall at home. She lost balance and had foot guard stuck in her slipper. Two days after her fall, she started having left ankle swelling and was having difficulty walking. So, she was placed in TCU for rehab, but she is still having difficulty balancing herself today. PHYSICAL EXAMINATION: GENERAL: She is awake, alert, oriented, communicative. VITAL SIGNS: She is afebrile. Pulse 70, respirations 20, and blood pressure 108/60. LUNGS: Bilateral fair airflow. No rhonchi or crackles. HEART: S1 and S2 audible. ABDOMEN: Soft, obese, nontender. No rebound. No guarding. NEUROLOGIC: The patient is awake, alert, oriented, able to communicate. EXTREMITIES: She has left ankle swelling. ASSESSMENT: 1. Status post fall. 2. Left ankle sprain. 3. Deconditioning. 4. Difficulty walking. 5. Thrombocytopenia. 6. Cardiac cirrhosis. 7. Chronic atrial fibrillation. 8. Status post pacemaker placement. 9. Hypertension. 10. Insulin-dependent diabetes. PLAN: The patient is being discharged to for gait training and physical therapy. She will resume her medications including metformin 500 twice a day, Coumadin 4 mg daily, simvastatin 20 mg daily, omeprazole 40 daily, metoprolol 50 mg twice a day, losartan 100 mg daily, Humalog 10 unit before breakfast, Levemir 40 unit twice a day, Prozac 10 mg daily, donepezil 10 mg at bedtime, digoxin 0.25, atorvastatin 10 mg daily, aspirin 81 daily. She will follow as outpatient. Olvin Dejesus MD
--- NOTE | 2018-06-09 00:14 | PN ---
DATE: 06/08/2018 SUBJECTIVE: Patient is seen in bed. No acute distress. Nontoxic. PHYSICAL EXAMINATION: VITAL SIGNS: Temperature is 98, blood pressure is 89/50, respiratory rate of 18, heart rate of 98. HEENT: Unremarkable. NECK: Supple. LUNGS: Decreased breath sounds. HEART: Normal S1 and S2. ABDOMEN: Soft. LABORATORY DATA: As noted. ASSESSMENT AND PLAN: A 72-year-old female who was seen earlier this morning in Transitional Care, chronic bilateral lower extremity wound without any evidence of infection, diabetes, asthma, coronary artery disease, congestive heart failure, probable cardiac cirrhosis, implantable cardioverter-defibrillator, history of cholecystectomy, currently now off antibiotics, and we will follow with you. Cameron Gonzalez MD
== END 2018-06-08 16:10 | DRG 603 ==
LOC: TRCU 19:20
PROVIDERS: ADMIT Internal Medicine; ATTEND Internal Medicine
PROC: F07Z9FZ Gait Training/Functional Ambulation Treatment using Assistive, Adaptive, Supportive or Protective Equipment (ICD-10-PCS; principal; 2018-06-03)
PROC: F07M6ZZ Therapeutic Exercise Treatment of Musculoskeletal System - Whole Body (ICD-10-PCS; 2018-06-03)
PROC: F08Z0ZZ Bathing/Showering Techniques Treatment (ICD-10-PCS; 2018-06-04)
PROC: F08Z1ZZ Dressing Techniques Treatment (ICD-10-PCS; 2018-06-04)
PROC: F08Z2ZZ Grooming/Personal Hygiene Treatment (ICD-10-PCS; 2018-06-04)
DX: L03.116 Cellulitis of left lower limb (principal); I11.0 Hypertensive heart disease with heart failure; E78.5 Hyperlipidemia, unspecified; E11.9 Type 2 diabetes mellitus without complications; I25.10 Atherosclerotic heart disease of native coronary artery without angina pectoris; D69.6 Thrombocytopenia, unspecified; I48.2 Chronic atrial fibrillation; I50.9 Heart failure, unspecified; J45.909 Unspecified asthma, uncomplicated; K74.60 Unspecified cirrhosis of liver; S93.402A Sprain of unspecified ligament of left ankle, initial encounter; W19.XXXA Unspecified fall, initial encounter; Z79.01 Long term (current) use of anticoagulants; Z79.4 Long term (current) use of insulin; Z90.49 Acquired absence of other specified parts of digestive tract; Z91.81 History of falling; Z95.0 Presence of cardiac pacemaker; Z95.810 Presence of automatic (implantable) cardiac defibrillator

== ENCOUNTER 2018-10-07 17:00 | Inpatient (IN) | payer MEDICARE, OTHER ==
[2018-10-07 17:00] VITALS: PULSE 64
[2018-10-07 17:08] VITALS: BMI 30.2
[2018-10-07] MEDS ORDERED: Sodium Chloride 0.9% 1,000 ML IV STA ×2 (17:17→22:03)
--- NOTE | 2018-10-07 17:29 | ED PDOC ---
Arrival/HPI - General Chief Complaint: Abdominal Pain Time Seen by Provider: 10/07/18 17:05 Historian: Patient - History of Present Illness Narrative History of Present Illness (Text): 10/07/18 17:26 73 year old female, whose past medical history includes atrial fibrillation, diabetes, heart failure, cirrhosis of liver, abdominal hernia, and anemia, presents to the emergency department complaining of vomiting, diarrhea, abdomi nal pain for an unknown amount of time. Patient denies any fever, chills, chest pain, shortness of breath. PMD: Dr. Dejesus Symptom Onset: Gradual Symptom Course: Unchanged Activities at Onset: Light Context: Home Past Medical History - Provider Review Nursing Documentation Reviewed: Yes - Infectious Disease Hx of Infectious Diseases: None - Tetanus Immunization Tetanus Immunization: Unknown - Reproductive Menopause: Yes - Cardiac Hx Cardiac Disorders: Yes (A fib) - Pulmonary Hx Respiratory Disorders: Yes Hx Asthma: Yes Hx Pneumonia: Yes Hx Respiratory Tract Infection: Yes - Neurological Hx Neurological Disorder: No - HEENT Hx HEENT Disorder: Yes (eyeglasses) - Renal Hx Renal Disorder: No - Endocrine/Metabolic Hx Diabetes Mellitus Type 2: Yes - Hematological/Oncological Hx Blood Disorders: No - Integumentary Hx Dermatological Disorder: Yes Other/Comment: healed mid abd wound, right abd hernia noted,ble +1 edema dry discolored skin multiple scabs and discolorations and variscosities - Musculoskeletal/Rheumatological Hx Falls: Yes (recent fall few days ago at home) - Gastrointestinal Hx Gastrointestinal Disorders: Yes (reflux) - Genitourinary/Gynecological Hx Genitourinary Disorders: Yes (hx uti) - Psychiatric Hx Psychophysiologic Disorder: Yes Hx Anxiety: Yes Hx Substance Use: No - Surgical History Hx Cholecystectomy: Yes Other/Comment: abdominal hernia repair,defibrillator - Anesthesia Hx Anesthesia: Yes Hx Anesthesia Reactions: No Hx Malignant Hyperthermia: No - Suicidal Assessment Feels Threatened In Home Enviroment: No Family/Social History - Physician Review Nursing Documentation Reviewed: Yes Family/Social History: No Known Family HX Smoking Status: Never Smoked Hx Alcohol Use: No Hx Substance Use: No Hx Substance Use Treatment: No Allergies/Home Meds Allergies/Adverse Reactions: Allergies kiwi Allergy (Verified 05/31/18 21:18) CONGESTION poppyseed oil Allergy (Verified 05/31/18 21:18) RASH shellfish derived Allergy (Verified 05/31/18 21:18) ANAPHYLAXIS Home Medications: Home Meds Medication Instructions Recorded Confirmed Warfarin Sodium [Coumadin] 4 mg PO .TUESDAY TO Tuesday11/05/14 06/02/18 Omeprazole [Prilosec] 40 mg PO DAILY 09/03/15 06/02/18 Review of Systems - Physician Review All systems were reviewed & negative as marked: Yes - Review of Systems Constitutional: absent: Fevers, Other (chills) Respiratory: absent: SOB Cardiovascular: absent: Chest Pain Gastrointestinal: Abdominal Pain, Diarrhea, Vomiting Physical Exam Vital Signs Reviewed: Yes Vital Signs Temp Pulse Resp BP Pulse Ox 10/07/18 17:16 98.5 F 113 H 20 142/61 100 Temperature: Afebrile Blood Pressure: Normal Pulse: Tachycardic Respiratory Rate: Normal Appearance: Positive for: Well-Appearing Mental Status: Positive for: Alert and Oriented X 3 - Systems Exam Head: Present: Atraumatic, Normocephalic Pupils: Present: PERRL Extroacular Muscles: Present: EOMI Conjunctiva: Present: Normal Mouth: Present: Moist Mucous Membranes Respiratory/Chest: Present: Clear to Auscultation, Good Air Exchange. No: Respiratory Distress, Accessory Muscle Use Cardiovascular: Present: Regular Rate and Rhythm, Normal S1, S2. No: Murmurs Abdomen: Present: Hernias (hernia noted). No: Tenderness, Distention, Peritoneal Signs Lower Extremity: Present: Other (venostasis to bilateral lower extremities) Neurological: Present: GCS=15, CN II-XII Intact, Speech Normal Skin: Present: Warm, Dry, Normal Color. No: Rashes Psychiatric: Present: Alert, Oriented x 3, Normal Insight, Normal Concentration Medical Decision Making ED Course and Treatment: 10/07/18 17:32 Impression: 73 year old female presenting to the emergency room complaining of vomiting, diarrhea, and abdominal pain. Differential Diagnosis included but are not limited to: gastroenteritis; rule out obstruction, dehydration, diverticulitis Plan: -- Abdomen and Pelvis CT -- CMP -- Liapse -- Troponin -- CBC -- COAGs -- Chest X-ray -- IV fluids -- Urine culture -- Urinalysis -- Reassess and disposition Prior Visits: Notes and results from previous visits were reviewed. Progress Notes: sign out to Dr Cline to follow up on ct abd/pelvis and cxr. - RAD Interpretation Radiology Orders: 10/07/18 17:17 ABD PELVIS PO & IV CONTRAST [CT] Stat CHEST PORTABLE [RAD] Stat - Medication Orders Current Medication Orders: Sodium Chloride (Sodium Chloride 0.9%) 1,000 mls @ 1,000 mls/hr IV .Q1H STA Stop: 10/07/18 18:16 - Scribe Statement The provider has reviewed the documentation as recorded by the Dbibjericho Harper All medical record entries made by the Scribe were at my direction and personally dictated by me. I have reviewed the chart and agree that the record accurately reflects my personal performance of the history, physical exam, medical decision making, and the department course for this patient. I have also personally directed, reviewed, and agree with the discharge instructions and disposition. Disposition/Present on Arrival - Present on Arrival Any Indicators Present on Arrival: No History of DVT/PE: No History of Uncontrolled Diabetes: No Urinary Catheter: No History of Decub. Ulcer: No History Surgical Site Infection Following: None - Disposition Have Diagnosis and Disposition been Completed?: Yes Diagnosis: Acute gastroenteritis, Abdominal pain Disposition: HOSPITALIZED Disposition Time: 18:47 Patient Problems: Current Active Problems Problem Status Onset Abdominal pain Acute Acute gastroenteritis Acute Condition: FAIR Discharge Instructions (ExitCare): Gastroenteritis (DC), Gastroenteritis (GEN) Forms: [employer] ([place])
[2018-10-07 17:42] LABS: BASO # 0.01 K/mm3 (0.0-2.0); BASO % 0.2 % (0.0-3.0); EOS % 0.7 % (1.5-5.0); HEMOGLOBIN 10.9 g/dL (12.0-16.0); MEAN CELL VOLUME 80.4 fl (80.0-105.0); MEAN CORPUSCULAR HEMOGLOBIN 25.8 pg (25.0-35.0); MEAN CORPUSCULAR HGB CONC 32.1 g/dl (31.0-37.0); MEAN PLATELET VOLUME 10.3 fl (7.0-11.0); MONO # 0.4 (0.1-0.6); RBC 4.23 10^6/uL (3.5-6.1); RED CELL DISTRIBUTION WIDTH 17.1 % (11.5-14.5); WHITE BLOOD COUNT 5.6 10^3/uL (4.5-11.0)
[2018-10-07 17:55] LABS: ALBUMIN 3.7 g/dL (3.0-4.8); ALT/SGPT 24 U/L (7-56); AST/SGOT 40 U/L (14-36); BLOOD UREA NITROGEN 20 mg/dL (7-21); GFR NON-AFRICAN AMERICAN > 60; INR 3.5; LIPASE 86 U/L (23-300); PARTIAL THROMBOPLASTIN TIME 52.9 Seconds (26.9-38.3); PROTHROMBIN TIME 38.9 SECONDS (9.4-12.5)
[2018-10-07 18:05] LABS: PH,URINE 7.5 (4.7-8.0); URINE BILIRUBIN NEGATIVE (NEGATIVE); URINE BLOOD TRACE-INTACT (NEGATIVE); URINE GLUCOSE (UA) NEGATIVE (NEGATIVE); URINE LEUKOCYTE ESTERASE SMALL Leu/uL (NEGATIVE); URINE PROTEIN TRACE mg/dL (<30 mg/dL)
[2018-10-07 18:06] LABS: TROPONIN I 0.01 ng/mL
[2018-10-07 18:06] LABS: URINE APPEARANCE SLIGHT-CLOUDY (CLEAR); URINE COLOR YELLOW (YELLOW)
[2018-10-07] MEDS ORDERED: Iohexol 240 (50 ml) ONE (18:09)
[2018-10-07 18:12] LABS: URINE BACTERIA MANY /hpf
[2018-10-07] MEDS ORDERED: cefTRIAXone 1 gm 1 GM/100 ML BAG IVPB ONE (18:17)
--- NOTE | 2018-10-07 19:31 | ED PDOC ---
Physical Exam Vital Signs Temp Pulse Resp BP Pulse Ox 10/07/18 18:05 112 H 20 148/69 99 10/07/18 17:16 98.5 F 113 H 20 142/61 100 Finger Stick Blood Glucose: 87 Medical Decision Making ED Course and Treatment: 10/07/18 19:00 Case endorsed to me by Dr. Ching. Pending CT scan of Abdomen and pelvis. Re- assess for final disposition. Patient has a history of vomiting, diarrhea, and abdominal discomfort. Patient has a past medical history of atrial fibrillation, diabetes, CHF, cirrhosis of liver, abdominal hernia, and anemia. Patient is currently stable. EXAM: CT Abdomen and Pelvis with IV and oral contrast agent. IMPRESSION: 1. Findings compatible with an evolving mechanical small intestinal obstruction as described above. 2. Evidence of gastritis and diffuse colitis. 3. Status post cholecystectomy. Some pneumobilia is present. 4. Findings thought compatible with cirrhosis of the liver. 5. Mild splenomegaly. 6. Abdominal and pelvic ascites is present. These findings likely indicate some component of portal venous hypertension. 7. A Schrader catheter is present within a decompressed urinary bladder. 8. A 4.7 cm left adnexal cystic lesion, likely of ovarian origin. Consider correlation with pelvic ultrasound or MRI Electronically signed on October 07, 2018 9:22:20 PM EDT by: Darren Smith M.D., M.B.A., Certified By [employer] Trained MRI and CT Specialist 10/07/18 21:53: Case discussed in detail with Dr. Dejesus who accepts patient to her service. Requests consultation from Dr. Guevara and Dr. Benedict. vice president & general manager [employer] [place] notified to see patient. 10/07/18 22:03: Case discussed with surgical assistant certified who will come evaluate patient in the emergency department. - Lab Interpretations Lab Results: PT 38.9 SECONDS (9.4-12.5) H 10/07/18 17:15 INR 3.50 10/07/18 17:15 APTT 52.9 Seconds (26.9-38.3) H 10/07/18 17:15 Troponin I 0.01 ng/mL D 10/07/18 17:15 Total Bilirubin 1.2 mg/dL (0.2-1.3) 10/07/18 17:15 AST 40 U/L (14-36) H 10/07/18 17:15 ALT 24 U/L (7-56) 10/07/18 17:15 Alkaline Phosphatase 135 U/L (38-126) H 10/07/18 17:15 Total Protein 7.3 g/dL (5.8-8.3) 10/07/18 17:15 Albumin 3.7 g/dL (3.0-4.8) 10/07/18 17:15 Globulin 3.7 gm/dL 10/07/18 17:15 Albumin/Globulin Ratio 1.0 (1.1-1.8) L 10/07/18 17:15 Lipase 86 U/L (23-300) 10/07/18 17:15 Urine Color Yellow (YELLOW) 10/07/18 17:45 Urine Appearance Slight-cloudy (CLEAR) 10/07/18 17:45 Urine pH 7.5 (4.7-8.0) 10/07/18 17:45 Ur Specific [place] 1.015 (1.005-1.035) 10/07/18 17:45 Urine Protein Trace mg/dL (<30 mg/dL) H 10/07/18 17:45 Urine Glucose (UA) Negative mg/dL (NEGATIVE) 10/07/18 17:45 Urine Ketones 15 mg/dL (NEGATIVE) H 10/07/18 17:45 Urine Blood Trace-intact (NEGATIVE) H 10/07/18 17:45 Urine Nitrate Positive (NEGATIVE) H 10/07/18 17:45 Urine Bilirubin Negative (NEGATIVE) 10/07/18 17:45 Urine Urobilinogen 4.0 E.U./dL (<1 E.U./dL) H 10/07/18 17:45 Ur Leukocyte Esterase Small Trisha/uL (NEGATIVE) H 10/07/18 17:45 Urine RBC 1 - 3 /hpf (0-2) H 10/07/18 17:45 Urine WBC 2 - 5 /hpf (0-6) 10/07/18 17:45 Ur Epithelial Cells 1 - 3 /hpf (0-5) 10/07/18 17:45 Urine Bacteria Many /hpf (NONE) 10/07/18 17:45 - RAD Interpretation Radiology Orders: 10/07/18 17:17 ABD PELVIS PO & IV CONTRAST [CT] Stat CHEST PORTABLE [RAD] Stat - Medication Orders Current Medication Orders: Discontinued Medications Sodium Chloride (Sodium Chloride 0.9%) 1,000 mls @ 1,000 mls/hr IV .Q1H STA Stop: 10/07/18 18:16 Last Admin: 10/07/18 18:03 Dose: 1,000 mls/hr eMAR Start Stop Document 10/07/18 18:03 SRE (Rec: 10/07/18 18:04 SRE [facility]-21) Intravenous Solution Start Date 10/07/18 Start Time 17:45 End Date 10/07/18 End time 18:45 Total Infusion Time 60 Ceftriaxone Sodium (Rocephin 1 Gram Ivpb) 1 gm in 100 mls @ 100 mls/hr IVPB ONCE ONE; Protocol Stop: 10/07/18 19:16 Last Admin: 10/07/18 18:36 Dose: 100 mls/hr eMAR Start Stop Document 10/07/18 18:36 SRE (Rec: 10/07/18 18:36 SRE [facility]-21) Intravenous Solution Start Date 10/07/18 Start Time 18:30 End Date 10/07/18 End time 19:30 Total Infusion Time 60 Disposition/Present on Arrival - Present on Arrival Any Indicators Present on Arrival: No History of DVT/PE: No History of Uncontrolled Diabetes: No Urinary Catheter: No History of Decub. Ulcer: No History Surgical Site Infection Following: None - Disposition Have Diagnosis and Disposition been Completed?: Yes Diagnosis: Colitis, SBO (small bowel obstruction) Disposition: HOSPITALIZED Disposition Time: 21:49 Patient Problems: Current Active Problems Problem Status Onset Abdominal pain Acute Colitis Acute SBO (small bowel obstruction) Acute Condition: STABLE Discharge Instructions (ExitCare): Gastroenteritis (DC), Gastroenteritis (GEN) Forms: [place] (Tajik)
[2018-10-07] MEDS ORDERED: Iohexol 350 MG/100 ML VIAL ONE (20:09)
[2018-10-07] MEDS ORDERED: metroNIDAZOLE IV 500 mg/100 ml 500 MG/100 ML BAG IV STA (21:37)
[2018-10-07] MEDS ORDERED: Morphine 2 mg/ml ISec IVP STA (22:11)
--- NOTE | 2018-10-07 23:16 | CP.PCM.CON ---
<Dionisio Saucedo - Last Filed: 10/07/18 23:11> History of Present Illness - History of Present Illness History of Present Illness: SURGERY CONSULT NOTE FOR DR. BENEDICT Reason: colitis, SBO 73F presents to the ED with complaints of abdominal pain. Abdominal pain is associated with nausea, it is associated with vomiting and also diarrhea. It is not associated with fevers or chills. Duration of symptoms are currently unknown. Patient currently feels fatigued and is unable to further express her symptoms. PMH: A-fibrillation, DM, Cirrhosis, CHF, Thrombocytopenia PSH: Cholecystectomy, Midline abdominal scar (pt unable to explain operation) Allergies: As per chart Past Patient History - Infectious Disease Hx of Infectious Diseases: None - Tetanus Immunizations Tetanus Immunization: Unknown - Past Social History Smoking Status: Never Smoked - CARDIAC Hx Cardiac Disorders: Yes (A fib) - PULMONARY Hx Respiratory Disorders: Yes Hx Asthma: Yes Hx Pneumonia: Yes Hx Respiratory Tract Infection: Yes - NEUROLOGICAL Hx Neurological Disorder: No - HEENT Hx HEENT Problems: Yes (eyeglasses) - RENAL Hx Chronic Kidney Disease: No - ENDOCRINE/METABOLIC Hx Diabetes Mellitus Type 2: Yes - HEMATOLOGICAL/ONCOLOGICAL Hx Blood Disorders: No - INTEGUMENTARY Hx Dermatological Problems: Yes Other/Comment: healed mid abd wound, right abd hernia noted,ble +1 edema dry discolored skin multiple scabs and discolorations and variscosities - MUSCULOSKELETAL/RHEUMATOLOGICAL Hx Falls: Yes (recent fall few days ago at home) - GASTROINTESTINAL Hx Gastrointestinal Disorders: Yes (reflux) - GENITOURINARY/GYNECOLOGICAL Hx Genitourinary Disorders: Yes (hx uti) - PSYCHIATRIC Hx Psychophysiologic Disorder: Yes Hx Anxiety: Yes Hx Substance Use: No - SURGICAL HISTORY Hx Cholecystectomy: Yes Other/Comment: abdominal hernia repair,defibrillator - ANESTHESIA Hx Anesthesia: Yes Hx Anesthesia Reactions: No Hx Malignant Hyperthermia: No Meds Allergies/Adverse Reactions: Allergies Allergy/AdvReac Type Severity Reaction Status Date / Time kiwi Allergy CONGESTION Verified 05/31/18 21:18 poppyseed oil Allergy RASH Verified 05/31/18 21:18 shellfish derived Allergy ANAPHYLAXIS Verified 05/31/18 21:18 - Medications Medications: Current Medications Sodium Chloride (Sodium Chloride 0.9%) 1,000 mls @ 100 mls/hr IV .Q10H STA Stop: 10/08/18 08:02 Last Admin: 10/07/18 22:10 Dose: 100 mls/hr Physical Exam - Constitutional Additional comments: tired, fatigued - Eye Exam Eye Exam: EOMI, PERRL - ENT Exam ENT Exam: Mucous Membranes Moist - Respiratory Exam Respiratory Exam: Clear to Auscultation Bilateral, NORMAL BREATHING PATTERN - Cardiovascular Exam Cardiovascular Exam: REGULAR RHYTHM, +S1, +S2 - GI/Abdominal Exam GI & Abdominal Exam: Soft, Tenderness (diffuse tenderness). absent: Distended, Firm, Guarding, Rebound, Rigid Additional comments: right mid abdominal hernia - Extremities Exam Extremities exam: Negative for: pedal edema, tenderness - Neurological Exam Neurological exam: Alert - Skin Skin Exam: Dry, Intact, Normal Color, Warm Results - Vital Signs Recent Vital Signs: Last Vital Signs Temp 97.5 F L 10/07/18 22:32 Pulse 106 H 10/07/18 22:32 Resp 22 10/07/18 22:32 BP 124/60 10/07/18 22:32 Pulse Ox 97 10/07/18 22:32 - Labs Result Diagrams: 10/07/18 17:15 10/07/18 17:15 Labs: Laboratory Results - last 24 hr 10/07/18 10/07/18 10/07/18 17:15 17:15 17:15 WBC 5.6 RBC 4.23 Hgb 10.9 L Hct 34.0 L MCV 80.4 D MCH 25.8 MCHC 32.1 RDW 17.1 H Plt Count 71 L MPV 10.3 Neut % (Auto) 75.1 H Lymph % (Auto) 17.0 L [place] % (Auto) 7.0 H Eos % (Auto) 0.7 L Baso % (Auto) 0.2 Lymph # (Auto) 1.0 L [place] # (Auto) 0.4 Eos # (Auto) 0.0 Baso # (Auto) 0.01 Absolute Neuts (auto) 4.21 PT 38.9 H INR 3.50 APTT 52.9 H Sodium 137 Potassium 5.1 H Chloride 102 Carbon Dioxide 27 Anion Gap 13 BUN 20 Creatinine 0.6 L Est GFR ( Amer) > 60 Est GFR (Non-Af Amer) > 60 Random Glucose 74 Calcium 10.0 Total Bilirubin 1.2 AST 40 H ALT 24 Alkaline Phosphatase 135 H Troponin I 0.01 D Total Protein 7.3 Albumin 3.7 Globulin 3.7 Albumin/Globulin Ratio 1.0 L Lipase 86 Urine Color Urine Appearance Urine pH Ur Specific [place] Urine Protein Urine Glucose (UA) Urine Ketones Urine Blood Urine Nitrate Urine Bilirubin Urine Urobilinogen Ur Leukocyte Esterase Urine RBC Urine WBC Ur Epithelial Cells Urine Bacteria 10/07/18 17:45 WBC RBC Hgb Hct MCV MCH MCHC RDW Plt Count MPV Neut % (Auto) Lymph % (Auto) [place] % (Auto) Eos % (Auto) Baso % (Auto) Lymph # (Auto) [place] # (Auto) Eos # (Auto) Baso # (Auto) Absolute Neuts (auto) PT INR APTT Sodium Potassium Chloride Carbon Dioxide Anion Gap BUN Creatinine Est GFR ( Amer) Est GFR (Non-Af Amer) Random Glucose Calcium Total Bilirubin AST ALT Alkaline Phosphatase Troponin I Total Protein Albumin Globulin Albumin/Globulin Ratio Lipase Urine Color Yellow Urine Appearance Slight-cloudy Urine pH 7.5 Ur Specific [place] 1.015 Urine Protein Trace H Urine Glucose (UA) Negative Urine Ketones 15 H Urine Blood Trace-intact H Urine Nitrate Positive H Urine Bilirubin Negative Urine Urobilinogen 4.0 H Ur Leukocyte Esterase Small H Urine RBC 1 - 3 H Urine WBC 2 - 5 Ur Epithelial Cells 1 - 3 Urine Bacteria Many Assessment & Plan - Assessment and Plan (Free Text) Assessment: 73M with enteritis and colitis, CT findings of possible SBO Plan: - NPO - IVF - antibiotics - Will monitor for further bowel movements - Patient will require EKG - Rec home medications - Serial abdominal exams Further recs discuss with Dr. Jak Saucedo,PGY3 <Shon Benedict - Last Filed: 10/08/18 16:11> Meds - Medications Medications: Current Medications Fluoxetine HCl (Prozac) 10 mg PO DAILY [facility] Last Admin: 10/08/18 10:41 Dose: 10 mg Metronidazole (Flagyl) 500 mg in 100 mls @ 100 mls/hr IVPB Q8 [facility]; Protocol Last Admin: 10/08/18 13:02 Dose: 100 mls/hr Ceftriaxone Sodium (Rocephin 1 Gram Ivpb) 1 gm in 100 mls @ 100 mls/hr IVPB DAILY [facility]; Protocol Last Admin: 10/08/18 10:41 Dose: 100 mls/hr Insulin Human Lispro (Humalog Med) 0 units SC ACHS [facility]; Protocol Last Admin: 10/08/18 13:02 Dose: Not Given Metoprolol Succinate (Toprol Xl) 50 mg PO BRKDIN [facility] Last Admin: 10/08/18 10:41 Dose: 50 mg Ondansetron HCl (Zofran Inj) 4 mg IVP Q6H PRN PRN Reason: Nausea/Vomiting Pantoprazole Sodium (Protonix Inj) 40 mg IVP DAILY [facility] Last Admin: 10/08/18 10:40 Dose: 40 mg Rifaximin (Xifaxan) 550 mg PO BID [facility]; Protocol Results - Vital Signs Recent Vital Signs: Last Vital Signs Temp 97.7 F 10/08/18 09:13 Pulse 96 H 10/08/18 09:13 Resp 20 10/08/18 09:13 BP 122/60 10/08/18 09:13 Pulse Ox 100 10/08/18 09:13 - Labs Result Diagrams: 10/08/18 10:10 10/08/18 10:10 Labs: Laboratory Results - last 24 hr 10/07/18 10/07/18 10/07/18 17:15 17:15 17:15 WBC 5.6 RBC 4.23 Hgb 10.9 L Hct 34.0 L MCV 80.4 D MCH 25.8 MCHC 32.1 RDW 17.1 H Plt Count 71 L MPV 10.3 Neut % (Auto) 75.1 H Lymph % (Auto) 17.0 L [place] % (Auto) 7.0 H Eos % (Auto) 0.7 L Baso % (Auto) 0.2 Lymph # (Auto) 1.0 L [place] # (Auto) 0.4 Eos # (Auto) 0.0 Baso # (Auto) 0.01 Absolute Neuts (auto) 4.21 PT 38.9 H INR 3.50 APTT 52.9 H Sodium 137 Potassium 5.1 H Chloride 102 Carbon Dioxide 27 Anion Gap 13 BUN 20 Creatinine 0.6 L Est GFR ( Amer) > 60 Est GFR (Non-Af Amer) > 60 POC Glucose (mg/dL) Random Glucose 74 Calcium 10.0 Total Bilirubin 1.2 AST 40 H ALT 24 Alkaline Phosphatase 135 H Troponin I 0.01 D Total Protein 7.3 Albumin 3.7 Globulin 3.7 Albumin/Globulin Ratio 1.0 L Lipase 86 Urine Color Urine Appearance Urine pH Ur Specific [place] Urine Protein Urine Glucose (UA) Urine Ketones Urine Blood Urine Nitrate Urine Bilirubin Urine Urobilinogen Ur Leukocyte Esterase Urine RBC Urine WBC Ur Epithelial Cells Urine Bacteria 10/07/18 10/07/18 10/08/18 17:45 23:47 08:23 WBC RBC Hgb Hct MCV MCH MCHC RDW Plt Count MPV Neut % (Auto) Lymph % (Auto) [place] % (Auto) Eos % (Auto) Baso % (Auto) Lymph # (Auto) [place] # (Auto) Eos # (Auto) Baso # (Auto) Absolute Neuts (auto) PT INR APTT Sodium Potassium Chloride Carbon Dioxide Anion Gap BUN Creatinine Est GFR ( Amer) Est GFR (Non-Af Amer) POC Glucose (mg/dL) 85 75 Random Glucose Calcium Total Bilirubin AST ALT Alkaline Phosphatase Troponin I Total Protein Albumin Globulin Albumin/Globulin Ratio Lipase Urine Color Yellow Urine Appearance Slight-cloudy Urine pH 7.5 Ur Specific [place] 1.015 Urine Protein Trace H Urine Glucose (UA) Negative Urine Ketones 15 H Urine Blood Trace-intact H Urine Nitrate Positive H Urine Bilirubin Negative Urine Urobilinogen 4.0 H Ur Leukocyte Esterase Small H Urine RBC 1 - 3 H Urine WBC 2 - 5 Ur Epithelial Cells 1 - 3 Urine Bacteria Many 10/08/18 10/08/18 10/08/18 10:10 10:10 10:46 WBC 4.4 L D RBC 3.83 Hgb 9.8 L Hct 30.8 L MCV 80.4 MCH 25.6 MCHC 31.8 RDW 17.4 H Plt Count 61 L MPV 10.4 Neut % (Auto) 77.4 H Lymph % (Auto) 13.7 L [place] % (Auto) 7.1 H Eos % (Auto) 1.6 Baso % (Auto) 0.2 Lymph # (Auto) 0.6 L [place] # (Auto) 0.3 Eos # (Auto) 0.1 Baso # (Auto) 0.01 Absolute Neuts (auto) 3.39 PT INR APTT Sodium 137 Potassium 4.6 Chloride 106 Carbon Dioxide 25 Anion Gap 11 BUN 17 Creatinine 0.6 L Est GFR ( Amer) > 60 Est GFR (Non-Af Amer) > 60 POC Glucose (mg/dL) 71 Random Glucose 64 L Calcium 9.3 Total Bilirubin 1.2 AST 34 ALT 24 Alkaline Phosphatase 99 Troponin I Total Protein 6.0 Albumin 2.9 L Globulin 3.1 Albumin/Globulin Ratio 0.9 L Lipase Urine Color Urine Appearance Urine pH Ur Specific [place] Urine Protein Urine Glucose (UA) Urine Ketones Urine Blood Urine Nitrate Urine Bilirubin Urine Urobilinogen Ur Leukocyte Esterase Urine RBC Urine WBC Ur Epithelial Cells Urine Bacteria 10/08/18 11:49 WBC RBC Hgb Hct MCV MCH MCHC RDW Plt Count MPV Neut % (Auto) Lymph % (Auto) [place] % (Auto) Eos % (Auto) Baso % (Auto) Lymph # (Auto) [place] # (Auto) Eos # (Auto) Baso # (Auto) Absolute Neuts (auto) PT INR APTT Sodium Potassium Chloride Carbon Dioxide Anion Gap BUN Creatinine Est GFR ( Amer) Est GFR (Non-Af Amer) POC Glucose (mg/dL) 79 Random Glucose Calcium Total Bilirubin AST ALT Alkaline Phosphatase Troponin I Total Protein Albumin Globulin Albumin/Globulin Ratio Lipase Urine Color Urine Appearance Urine pH Ur Specific [place] Urine Protein Urine Glucose (UA) Urine Ketones Urine Blood Urine Nitrate Urine Bilirubin Urine Urobilinogen Ur Leukocyte Esterase Urine RBC Urine WBC Ur Epithelial Cells Urine Bacteria Assessment & Plan - Assessment and Plan (Free Text) Plan: Dx PSBO/cardiac cirrhossis-hypersplenism Starting flatus with some relief Hold off surgery for now Hold coumadin This consult done under my direct supervision Savannah Benedict MD FACS
[2018-10-07] MEDS ORDERED: HYDROmorphone 0.5 mg/0.5 ml ISec IVP PRN (23:30)
--- NOTE | 2018-10-08 03:15 | HP ---
DATE OF EXAM: 10/07/2018 HISTORY OF PRESENT ILLNESS: The patient is 73-year-old, came to emergency room because of intractable nausea and vomiting, some abdominal discomfort. No history of hemoptysis, no hematemesis, no rectal bleeding. Complained of diarrhea. No fever or chills. No cough or congestion. Complained of generalized weakness and feels tired. PAST MEDICAL HISTORY: Significant for: 1. Chronic AFib. 2. Insulin-dependent diabetes. 3. Cardiac cirrhosis. 4. Congestive heart failure. 5. History of thrombocytopenia. 6. Status post pacemaker placement. 7. History of mediastinal lymphadenopathy, had biopsy done, was noncancerous. ALLERGIES: SHE IS ALLERGIC TO: 1. KIWI. 2. POPPY SEEDS. 3. SHELLFISH. MEDICATIONS AT HOME: She is on metformin 500 twice a day, Coumadin 5 mg daily, simvastatin 20 mg daily, Prilosec 40 mg daily, metoprolol 50 mg twice a day, Losartan 100 daily, Prozac 10 mg daily, Aricept 10 mg daily, digoxin 0.5, aspirin 81 daily. SOCIAL HISTORY: She is , lives with her . Denies smoking or drinking. PHYSICAL EXAMINATION: GENERAL: Sleepy, but arousable. Feels weak. Does not have appetite. VITAL SIGNS: She is afebrile, pulse 106, respirations 22, and blood pressure 124/60. LUNGS: Bilateral fair airflow. HEART: S1 and S2 audible. ABDOMEN: Soft, slight epigastric discomfort. NEUROLOGIC: She is awake, alert and able to communicate. LABORATORY DATA: WBC of 5.6, hemoglobin 10.9, hematocrit 34, and platelets 71. PT of 38.9, INR or 3.5. Chemistries; sodium 137, potassium 5.1, chloride 101, CO2 of 27, BUN of 20, creatinine of 0.6, blood sugar of 74, AST of 40, ALT of 24. Troponin is 0.01. Urine shows positive nitrites and leukocytes. She had CT scan of the abdomen and pelvis done that showed ileus. ASSESSMENT: 1. Intractable nausea and vomiting. 2. Chronic atrial fibrillation. 3. History of gastritis. 4. Coronary artery disease. 5. History of cirrhosis of the liver. 6. Thrombocytopenia. 7. Insulin-dependant diabetes. 8. History of ventral hernia. PLAN: We will keep the patient n.p.o. Give her IV fluids. Surgical consult by Dr. Benedict has been requested. We will monitor her blood sugar and hold her Coumadin. We will reevaluate in the a.m. Olvin Dejesus MD
[2018-10-08] MEDS: metroNIDAZOLE IV 500 mg/100 ml 500 MG/100 ML BAG IVPB SCH ×3 (05:27→21:03)
[2018-10-08] MEDS: Insulin Lispro (humaLOG) MEDIUM Coverage SC SCH ×4 (08:14→22:34)
--- NOTE | 2018-10-08 08:48 | CP.PCM.PN ---
Subjective - Date & Time of Evaluation Date of Evaluation: 10/08/18 Time of Evaluation: 08:44 - Subjective Subjective: General Surgery: Dr Benedict Pt S&E on floor. Looks significantly improved. Now awake and alert, responding to questioning. Reports she feels much better. Abdominal pain has resolved. Denies nausea, vomiting since admission, though states was vomiting prior to arrival. Passing flatus. Cannot recall last BM. Abdomen is soft. Objective - Vital Signs/Intake and Output Vital Signs (last 24 hours): Temp Pulse Resp BP Pulse Ox 97.5 F L 122 H 20 124/60 97 10/07/18 22:32 10/07/18 22:54 10/07/18 22:54 10/07/18 22:32 10/07/18 22:32 Intake and Output: 10/08/18 10/08/18 06:59 18:59 Intake Total 0 Balance 0 - Medications Medications: Current Medications Fluoxetine HCl (Prozac) 10 mg PO DAILY [facility] Hydromorphone HCl (Dilaudid) 0.5 mg IVP Q4H PRN PRN Reason: Pain, severe (8-10) Metronidazole (Flagyl) 500 mg in 100 mls @ 100 mls/hr IVPB Q8 [facility]; Protocol Last Admin: 10/08/18 05:27 Dose: 100 mls/hr Ceftriaxone Sodium (Rocephin 1 Gram Ivpb) 1 gm in 100 mls @ 100 mls/hr IVPB DAILY [facility]; Protocol Insulin Human Lispro (Humalog Med) 0 units SC ACHS [facility]; Protocol Last Admin: 10/08/18 08:14 Dose: Not Given Metoprolol Succinate (Toprol Xl) 50 mg PO BRKDIN [facility] Ondansetron HCl (Zofran Inj) 4 mg IVP Q6H PRN PRN Reason: Nausea/Vomiting Pantoprazole Sodium (Protonix Inj) 40 mg IVP DAILY [facility] - Labs Labs: 10/07/18 17:15 10/07/18 17:15 PT 38.9 SECONDS (9.4-12.5) H 10/07/18 17:15 INR 3.50 10/07/18 17:15 APTT 52.9 Seconds (26.9-38.3) H 10/07/18 17:15 - Constitutional Appears: Non-toxic, No Acute Distress - ENT Exam ENT Exam: Mucous Membranes Dry - Respiratory Exam Respiratory Exam: absent: Respiratory Distress - Cardiovascular Exam Cardiovascular Exam: absent: Tachycardia - GI/Abdominal Exam GI & Abdominal Exam: Distended, Soft, Hernia. absent: Tenderness - Extremities Exam Extremities Exam: absent: Pedal Edema - Neurological Exam Neurological Exam: Alert, Awake - Psychiatric Exam Psychiatric exam: Normal Affect, Normal Mood - Skin Skin Exam: Normal Color Assessment and Plan - Assessment and Plan (Free Text) Assessment: 73F admitted for abdominal pain; ddx gastritis, colitis, partial sbo Plan: cont IVF symptoms resolving will hold on diet until approved by attending will d/w Dr Jak Sanchez, PGY4
--- NOTE | 2018-10-08 09:36 | CT ---
Date of service: 10/07/2018 PROCEDURE: CT Abdomen and Pelvis with contrast HISTORY: r/o obstruction COMPARISON: 01/05/2015. CT abdomen and pelvis 10/21/2014. Pelvic ultrasound. Summary of findings on the comparison examination: Left ovarian cyst 5.1 x 7.6 cm. 01/07/2015 abdominal ultrasound TECHNIQUE: Intravenous contrast dose: 100 cc Omnipaque 350. Radiation dose: Total exam DLP = 1023.93 mGy-cm. This CT exam was performed using one or more of the following dose reduction techniques: Automated exposure control, adjustment of the mA and/or kV according to patient size, and/or use of iterative reconstruction technique. FINDINGS: LOWER THORAX: Cardiomegaly. Trace left pleural effusion. LIVER: Hepatic steatosis. No focal masses. No intrahepatic bile duct dilatation or perihepatic ascites. Air identified in intrahepatic bile ducts similar finding I cyst identified previously. GALLBLADDER AND BILE DUCTS: Stable postoperative changes following cholecystectomy including small cystic mass or collection. PANCREAS: Unremarkable. No gross lesion or ductal dilatation. SPLEEN: Top-normal spleen. Orthogonal measurements 11.7 x 12.8 cm. ADRENALS: Unremarkable. No mass. KIDNEYS AND URETERS: Unremarkable. No hydronephrosis. No solid mass. VASCULATURE: Unremarkable. No aortic aneurysm. No atherosclerotic calcification or mural plaque present. BOWEL: Inflammatory changes ascending colon consistent with acute colitis. Dilatation of small bowel consistent with small bowel obstruction. The point of obstruction is in the right lower quadrant beyond which the the terminal ileum is normal. Under filling of the stomach. In the appropriate clinical setting gastritis should be considered. APPENDIX: Normal appendix. PERITONEUM: Small volume intra-abdominal pelvic ascites. No free air. LYMPH NODES: Unremarkable. No enlarged lymph nodes. BLADDER: Schrader catheter demonstrated in a decompressed urinary bladder. REPRODUCTIVE: Redemonstration of cystic mass in the pelvis/left adnexal in origin. On the current study this measures 4.5 x 4.9 cm. BONES: No acute fracture. OTHER FINDINGS: Subcutaneous edema and anasarca. This appears to be a chronic process for as was evidence by prior study demonstrating similar findings. Postoperative changes anterior abdominal/pelvic wall. IMPRESSION: Distal small bowel obstruction. Under filling of the stomach accentuating gastric wall thickening. Gastritis should be considered. Colitis limited to the ascending colon. Small volume abdominal pelvic ascites. Stable left adnexal cyst. Stable pneumobilia. Concordant results (preliminary interpretation) provided by JAMES ZAYAS. Procedure Completed: 20:17. Preliminary Report: Interpreted and electronically signed: 21:22. Final Interpretation: 09:32. October 08, 2018.
--- NOTE | 2018-10-08 09:36 | CP.PCM.PCO ---
Physician Communication Note - Physician Communication Note Physician Communication Note: PSBO Rx Conservatively/No surgery now
[2018-10-08 10:19] LABS: BASO # 0.01 K/mm3 (0.0-2.0); BASO % 0.2 % (0.0-3.0); EOS # 0.1 (0.0-0.7); EOS % 1.6 % (1.5-5.0); HEMOGLOBIN 9.8 g/dL (12.0-16.0); LYMPH # 0.6 (1.2-3.4); LYMPH % 13.7 % (22.0-35.0); MEAN CELL VOLUME 80.4 fl (80.0-105.0); MEAN CORPUSCULAR HEMOGLOBIN 25.6 pg (25.0-35.0); MEAN CORPUSCULAR HGB CONC 31.8 g/dl (31.0-37.0); MEAN PLATELET VOLUME 10.4 fl (7.0-11.0); MONO # 0.3 (0.1-0.6); MONO % 7.1 % (1.0-6.0); RBC 3.83 10^6/uL (3.5-6.1); RED CELL DISTRIBUTION WIDTH 17.4 % (11.5-14.5); WHITE BLOOD COUNT 4.4 10^3/uL (4.5-11.0)
[2018-10-08] MEDS: Metoprolol Succinate 50 mg XL Tab PO SCH ×2 (10:41→18:28)
[2018-10-08] MEDS: cefTRIAXone 1 gm 1 GM/100 ML BAG IVPB SCH (10:41)
--- NOTE | 2018-10-08 10:46 | CARD ---
APPROVED REPORT Date of service: 10/07/2018 EKG Measurement Heart [id number] <Conclusion> Atrial fibrillation with rapid ventricular response Poor R wave progression in Precordial leads Nonspecific ST-T changes Abnormal ECG
--- NOTE | 2018-10-08 10:52 | CARD ---
APPROVED REPORT Date of service: 10/07/2018 EKG Measurement Heart [id number] <Conclusion> Atrial fibrillation with rapid ventricular response with premature ventricular or aberrantly conducted complexes Poor R wave progression in Precordial leads ST & T wave abnormality, consider inferior ischemia or digitalis effect Abnormal ECG
--- NOTE | 2018-10-08 11:47 | RAD ---
Date of service: 10/07/2018 HISTORY: r/o infiltrate COMPARISON: 07/17/2016. FINDINGS: LUNGS: No active pulmonary disease. PLEURA: No significant pleural effusion identified, no pneumothorax apparent. CARDIOVASCULAR: No atherosclerotic calcification present Cardiomegaly. No evidence of acute, significant cardiovascular disease. Position/ configuration of pacemaker Satisfactory. OSSEOUS STRUCTURES: No significant abnormalities. VISUALIZED UPPER ABDOMEN: Normal. OTHER FINDINGS: None. IMPRESSION: No active disease. No significant interval change compared to the prior examination(s).
[2018-10-08 11:49] LABS: ALB/GLOB RATIO 0.9 (1.1-1.8); ALBUMIN 2.9 g/dL (3.0-4.8); ALT/SGPT 24 U/L (7-56); AST/SGOT 34 U/L (14-36); BLOOD UREA NITROGEN 17 mg/dL (7-21); CALCIUM 9.3 mg/dL (8.4-10.5); GFR NON-AFRICAN AMERICAN > 60
--- NOTE | 2018-10-08 13:25 | CP.PCM.CON ---
<Beth King - Last Filed: 10/08/18 13:46> History of Present Illness - History of Present Illness History of Present Illness: GI Fellow PGY5 Consult Note 73yF with a pmhx of A-fibrillation, DM, Cirrhosis, CHF, Thrombocytopenia who presents to the ED with complaints of abdominal pain. Abdominal pain is associated with nausea, it is associated with vomiting and also diarrhea. It is not associated with fevers or chills. Duration of symptoms are currently unknown. Patient currently feels fatigued and is unable to further express her symptoms. Pt denies any prior EGD/Colonoscopy but had these procedure in 2014 with Anemia and found to have 2 tubular adenomas. Pt also does not recall hx of cirrhosis or etiology. ROS: A 12pt ROS was negative except as above. PMH: As stated in HPI PSH: Cholecystectomy, Midline abdominal scar (pt unable to explain operation) SH: Deneis etoh, drugs, tobacco FH: neg for colon cancer Past Patient History - Infectious Disease Hx of Infectious Diseases: None - Tetanus Immunizations Tetanus Immunization: Unknown - Past Social History Smoking Status: Never Smoked - CARDIAC Hx Cardiac Disorders: Yes (A fib) - PULMONARY Hx Respiratory Disorders: Yes Hx Asthma: Yes Hx Pneumonia: Yes Hx Respiratory Tract Infection: Yes - NEUROLOGICAL Hx Neurological Disorder: No - HEENT Hx HEENT Problems: Yes (eyeglasses) - RENAL Hx Chronic Kidney Disease: No - ENDOCRINE/METABOLIC Hx Diabetes Mellitus Type 2: Yes - HEMATOLOGICAL/ONCOLOGICAL Hx Blood Disorders: No - INTEGUMENTARY Hx Dermatological Problems: Yes Other/Comment: healed mid abd wound, right abd hernia noted,ble +1 edema dry discolored skin multiple scabs and discolorations and variscosities - MUSCULOSKELETAL/RHEUMATOLOGICAL Hx Falls: Yes (recent fall few days ago at home) - GASTROINTESTINAL Hx Gastrointestinal Disorders: Yes (reflux) - GENITOURINARY/GYNECOLOGICAL Hx Genitourinary Disorders: Yes (hx uti) - PSYCHIATRIC Hx Psychophysiologic Disorder: Yes Hx Anxiety: Yes Hx Substance Use: No - SURGICAL HISTORY Hx Cholecystectomy: Yes Other/Comment: abdominal hernia repair,defibrillator - ANESTHESIA Hx Anesthesia: Yes Hx Anesthesia Reactions: No Hx Malignant Hyperthermia: No Meds Allergies/Adverse Reactions: Allergies Allergy/AdvReac Type Severity Reaction Status Date / Time kiwi Allergy CONGESTION Verified 05/31/18 21:18 poppyseed oil Allergy RASH Verified 05/31/18 21:18 shellfish derived Allergy ANAPHYLAXIS Verified 05/31/18 21:18 - Medications Medications: Current Medications Fluoxetine HCl (Prozac) 10 mg PO DAILY [facility] Last Admin: 10/08/18 10:41 Dose: 10 mg Hydromorphone HCl (Dilaudid) 0.5 mg IVP Q4H PRN PRN Reason: Pain, severe (8-10) Metronidazole (Flagyl) 500 mg in 100 mls @ 100 mls/hr IVPB Q8 [facility]; Protocol Last Admin: 10/08/18 13:02 Dose: 100 mls/hr Ceftriaxone Sodium (Rocephin 1 Gram Ivpb) 1 gm in 100 mls @ 100 mls/hr IVPB DAILY [facility]; Protocol Last Admin: 10/08/18 10:41 Dose: 100 mls/hr Insulin Human Lispro (Humalog Med) 0 units SC ACHS [facility]; Protocol Last Admin: 10/08/18 13:02 Dose: Not Given Lactulose (Enulose) 20 gm PO [facility] Metoprolol Succinate (Toprol Xl) 50 mg PO BRKDIN [facility] Last Admin: 10/08/18 10:41 Dose: 50 mg Ondansetron HCl (Zofran Inj) 4 mg IVP Q6H PRN PRN Reason: Nausea/Vomiting Pantoprazole Sodium (Protonix Inj) 40 mg IVP DAILY [facility] Last Admin: 10/08/18 10:40 Dose: 40 mg Physical Exam - Constitutional Appears: Non-toxic, No Acute Distress - Head Exam Head Exam: ATRAUMATIC, NORMAL INSPECTION, NORMOCEPHALIC - Eye Exam Eye Exam: EOMI, Normal appearance, PERRL - ENT Exam ENT Exam: Mucous Membranes Moist, Normal Exam - Neck Exam Neck exam: Positive for: Normal Inspection - Respiratory Exam Respiratory Exam: Clear to Auscultation Bilateral, NORMAL BREATHING PATTERN - Cardiovascular Exam Cardiovascular Exam: REGULAR RHYTHM, RRR, +S1, +S2 - GI/Abdominal Exam GI & Abdominal Exam: Distended, Normal Bowel Sounds, Organomegaly, Soft. absent: Firm, Guarding, Tenderness - Rectal Exam Rectal Exam: Deferred - Extremities Exam Extremities exam: Positive for: full ROM, normal inspection - Neurological Exam Neurological exam: Alert, Oriented x3 Additional comments: asterixis - Skin Skin Exam: Dry, Intact, Normal Color, Warm Results - Vital Signs Recent Vital Signs: Last Vital Signs Temp 97.7 F 10/08/18 09:13 Pulse 96 H 10/08/18 09:13 Resp 20 10/08/18 09:13 BP 122/60 10/08/18 09:13 Pulse Ox 100 10/08/18 09:13 - Labs Result Diagrams: 10/08/18 10:10 10/08/18 10:10 Labs: Laboratory Results - last 24 hr 10/07/18 10/07/18 10/07/18 17:15 17:15 17:15 WBC 5.6 RBC 4.23 Hgb 10.9 L Hct 34.0 L MCV 80.4 D MCH 25.8 MCHC 32.1 RDW 17.1 H Plt Count 71 L MPV 10.3 Neut % (Auto) 75.1 H Lymph % (Auto) 17.0 L [place] % (Auto) 7.0 H Eos % (Auto) 0.7 L Baso % (Auto) 0.2 Lymph # (Auto) 1.0 L [place] # (Auto) 0.4 Eos # (Auto) 0.0 Baso # (Auto) 0.01 Absolute Neuts (auto) 4.21 PT 38.9 H INR 3.50 APTT 52.9 H Sodium 137 Potassium 5.1 H Chloride 102 Carbon Dioxide 27 Anion Gap 13 BUN 20 Creatinine 0.6 L Est GFR ( Amer) > 60 Est GFR (Non-Af Amer) > 60 POC Glucose (mg/dL) Random Glucose 74 Calcium 10.0 Total Bilirubin 1.2 AST 40 H ALT 24 Alkaline Phosphatase 135 H Troponin I 0.01 D Total Protein 7.3 Albumin 3.7 Globulin 3.7 Albumin/Globulin Ratio 1.0 L Lipase 86 Urine Color Urine Appearance Urine pH Ur Specific [place] Urine Protein Urine Glucose (UA) Urine Ketones Urine Blood Urine Nitrate Urine Bilirubin Urine Urobilinogen Ur Leukocyte Esterase Urine RBC Urine WBC Ur Epithelial Cells Urine Bacteria 10/07/18 10/07/18 10/08/18 17:45 23:47 08:23 WBC RBC Hgb Hct MCV MCH MCHC RDW Plt Count MPV Neut % (Auto) Lymph % (Auto) [place] % (Auto) Eos % (Auto) Baso % (Auto) Lymph # (Auto) [place] # (Auto) Eos # (Auto) Baso # (Auto) Absolute Neuts (auto) PT INR APTT Sodium Potassium Chloride Carbon Dioxide Anion Gap BUN Creatinine Est GFR ( Amer) Est GFR (Non-Af Amer) POC Glucose (mg/dL) 85 75 Random Glucose Calcium Total Bilirubin AST ALT Alkaline Phosphatase Troponin I Total Protein Albumin Globulin Albumin/Globulin Ratio Lipase Urine Color Yellow Urine Appearance Slight-cloudy Urine pH 7.5 Ur Specific [place] 1.015 Urine Protein Trace H Urine Glucose (UA) Negative Urine Ketones 15 H Urine Blood Trace-intact H Urine Nitrate Positive H Urine Bilirubin Negative Urine Urobilinogen 4.0 H Ur Leukocyte Esterase Small H Urine RBC 1 - 3 H Urine WBC 2 - 5 Ur Epithelial Cells 1 - 3 Urine Bacteria Many 10/08/18 10/08/18 10/08/18 10:10 10:10 10:46 WBC 4.4 L D RBC 3.83 Hgb 9.8 L Hct 30.8 L MCV 80.4 MCH 25.6 MCHC 31.8 RDW 17.4 H Plt Count 61 L MPV 10.4 Neut % (Auto) 77.4 H Lymph % (Auto) 13.7 L [place] % (Auto) 7.1 H Eos % (Auto) 1.6 Baso % (Auto) 0.2 Lymph # (Auto) 0.6 L [place] # (Auto) 0.3 Eos # (Auto) 0.1 Baso # (Auto) 0.01 Absolute Neuts (auto) 3.39 PT INR APTT Sodium 137 Potassium 4.6 Chloride 106 Carbon Dioxide 25 Anion Gap 11 BUN 17 Creatinine 0.6 L Est GFR ( Amer) > 60 Est GFR (Non-Af Amer) > 60 POC Glucose (mg/dL) 71 Random Glucose 64 L Calcium 9.3 Total Bilirubin 1.2 AST 34 ALT 24 Alkaline Phosphatase 99 Troponin I Total Protein 6.0 Albumin 2.9 L Globulin 3.1 Albumin/Globulin Ratio 0.9 L Lipase Urine Color Urine Appearance Urine pH Ur Specific [place] Urine Protein Urine Glucose (UA) Urine Ketones Urine Blood Urine Nitrate Urine Bilirubin Urine Urobilinogen Ur Leukocyte Esterase Urine RBC Urine WBC Ur Epithelial Cells Urine Bacteria 10/08/18 11:49 WBC RBC Hgb Hct MCV MCH MCHC RDW Plt Count MPV Neut % (Auto) Lymph % (Auto) [place] % (Auto) Eos % (Auto) Baso % (Auto) Lymph # (Auto) [place] # (Auto) Eos # (Auto) Baso # (Auto) Absolute Neuts (auto) PT INR APTT Sodium Potassium Chloride Carbon Dioxide Anion Gap BUN Creatinine Est GFR ( Amer) Est GFR (Non-Af Amer) POC Glucose (mg/dL) 79 Random Glucose Calcium Total Bilirubin AST ALT Alkaline Phosphatase Troponin I Total Protein Albumin Globulin Albumin/Globulin Ratio Lipase Urine Color Urine Appearance Urine pH Ur Specific [place] Urine Protein Urine Glucose (UA) Urine Ketones Urine Blood Urine Nitrate Urine Bilirubin Urine Urobilinogen Ur Leukocyte Esterase Urine RBC Urine WBC Ur Epithelial Cells Urine Bacteria Assessment & Plan - Assessment and Plan (Free Text) Assessment: 1. Abd pain, N/V 2. Cirrhosis etiology? 3. Afib on OAC 4. Ascites 5. HE -Pt with cirrhosis and pancytopenia, etiology unclear, cardiac or hepatitis? -Abd US duplex -Hep Panel ordered -Start rifaxamin and lactulose -Recommend diagnostic paracentesis, to determine etiology -Recommend cardiac evaluation for possible EGD -Clear liquid diet -Will follow closely <Mariposa Guevara V - Last Filed: 10/08/18 17:05> Meds - Medications Medications: Current Medications Fluoxetine HCl (Prozac) 10 mg PO DAILY [facility] Last Admin: 10/08/18 10:41 Dose: 10 mg Metronidazole (Flagyl) 500 mg in 100 mls @ 100 mls/hr IVPB Q8 [facility]; Protocol Last Admin: 10/08/18 13:02 Dose: 100 mls/hr Ceftriaxone Sodium (Rocephin 1 Gram Ivpb) 1 gm in 100 mls @ 100 mls/hr IVPB DAILY [facility]; Protocol Last Admin: 10/08/18 10:41 Dose: 100 mls/hr Insulin Human Lispro (Humalog Med) 0 units SC ACHS [facility]; Protocol Last Admin: 10/08/18 13:02 Dose: Not Given Metoprolol Succinate (Toprol Xl) 50 mg PO BRKDIN [facility] Last Admin: 10/08/18 10:41 Dose: 50 mg Ondansetron HCl (Zofran Inj) 4 mg IVP Q6H PRN PRN Reason: Nausea/Vomiting Pantoprazole Sodium (Protonix Inj) 40 mg IVP DAILY [facility] Last Admin: 10/08/18 10:40 Dose: 40 mg Rifaximin (Xifaxan) 550 mg PO BID [facility]; Protocol Results - Vital Signs Recent Vital Signs: Last Vital Signs Temp 98.5 F 10/08/18 16:58 Pulse 101 H 10/08/18 16:58 Resp 19 10/08/18 16:58 BP 113/61 10/08/18 16:58 Pulse Ox 94 L 10/08/18 16:58 - Labs Result Diagrams: 10/08/18 10:10 10/08/18 10:10 Labs: Laboratory Results - last 24 hr 10/07/18 10/07/18 10/07/18 17:15 17:15 17:15 WBC 5.6 RBC 4.23 Hgb 10.9 L Hct 34.0 L MCV 80.4 D MCH 25.8 MCHC 32.1 RDW 17.1 H Plt Count 71 L MPV 10.3 Neut % (Auto) 75.1 H Lymph % (Auto) 17.0 L [place] % (Auto) 7.0 H Eos % (Auto) 0.7 L Baso % (Auto) 0.2 Lymph # (Auto) 1.0 L [place] # (Auto) 0.4 Eos # (Auto) 0.0 Baso # (Auto) 0.01 Absolute Neuts (auto) 4.21 PT 38.9 H INR 3.50 APTT 52.9 H Sodium 137 Potassium 5.1 H Chloride 102 Carbon Dioxide 27 Anion Gap 13 BUN 20 Creatinine 0.6 L Est GFR ( Amer) > 60 Est GFR (Non-Af Amer) > 60 POC Glucose (mg/dL) Random Glucose 74 Calcium 10.0 Total Bilirubin 1.2 AST 40 H ALT 24 Alkaline Phosphatase 135 H Troponin I 0.01 D Total Protein 7.3 Albumin 3.7 Globulin 3.7 Albumin/Globulin Ratio 1.0 L Lipase 86 Urine Color Urine Appearance Urine pH Ur Specific [place] Urine Protein Urine Glucose (UA) Urine Ketones Urine Blood Urine Nitrate Urine Bilirubin Urine Urobilinogen Ur Leukocyte Esterase Urine RBC Urine WBC Ur Epithelial Cells Urine Bacteria Hepatitis A IgM Ab Hep Bs Antigen Hep B Core IgM Ab 10/07/18 10/07/18 10/08/18 17:45 23:47 08:23 WBC RBC Hgb Hct MCV MCH MCHC RDW Plt Count MPV Neut % (Auto) Lymph % (Auto) [place] % (Auto) Eos % (Auto) Baso % (Auto) Lymph # (Auto) [place] # (Auto) Eos # (Auto) Baso # (Auto) Absolute Neuts (auto) PT INR APTT Sodium Potassium Chloride Carbon Dioxide Anion Gap BUN Creatinine Est GFR ( Amer) Est GFR (Non-Af Amer) POC Glucose (mg/dL) 85 75 Random Glucose Calcium Total Bilirubin AST ALT Alkaline Phosphatase Troponin I Total Protein Albumin Globulin Albumin/Globulin Ratio Lipase Urine Color Yellow Urine Appearance Slight-cloudy Urine pH 7.5 Ur Specific [place] 1.015 Urine Protein Trace H Urine Glucose (UA) Negative Urine Ketones 15 H Urine Blood Trace-intact H Urine Nitrate Positive H Urine Bilirubin Negative Urine Urobilinogen 4.0 H Ur Leukocyte Esterase Small H Urine RBC 1 - 3 H Urine WBC 2 - 5 Ur Epithelial Cells 1 - 3 Urine Bacteria Many Hepatitis A IgM Ab Hep Bs Antigen Hep B Core IgM Ab 10/08/18 10/08/18 10/08/18 10:10 10:10 10:10 WBC 4.4 L D RBC 3.83 Hgb 9.8 L Hct 30.8 L MCV 80.4 MCH 25.6 MCHC 31.8 RDW 17.4 H Plt Count 61 L MPV 10.4 Neut % (Auto) 77.4 H Lymph % (Auto) 13.7 L [place] % (Auto) 7.1 H Eos % (Auto) 1.6 Baso % (Auto) 0.2 Lymph # (Auto) 0.6 L [place] # (Auto) 0.3 Eos # (Auto) 0.1 Baso # (Auto) 0.01 Absolute Neuts (auto) 3.39 PT INR APTT Sodium 137 Potassium 4.6 Chloride 106 Carbon Dioxide 25 Anion Gap 11 BUN 17 Creatinine 0.6 L Est GFR ( Amer) > 60 Est GFR (Non-Af Amer) > 60 POC Glucose (mg/dL) Random Glucose 64 L Calcium 9.3 Total Bilirubin 1.2 AST 34 ALT 24 Alkaline Phosphatase 99 Troponin I Total Protein 6.0 Albumin 2.9 L Globulin 3.1 Albumin/Globulin Ratio 0.9 L Lipase Urine Color Urine Appearance Urine pH Ur Specific [place] Urine Protein Urine Glucose (UA) Urine Ketones Urine Blood Urine Nitrate Urine Bilirubin Urine Urobilinogen Ur Leukocyte Esterase Urine RBC Urine WBC Ur Epithelial Cells Urine Bacteria Hepatitis A IgM Ab Negative Hep Bs Antigen Negative Hep B Core IgM Ab Negative 10/08/18 10/08/18 10:46 11:49 WBC RBC Hgb Hct MCV MCH MCHC RDW Plt Count MPV Neut % (Auto) Lymph % (Auto) [place] % (Auto) Eos % (Auto) Baso % (Auto) Lymph # (Auto) [place] # (Auto) Eos # (Auto) Baso # (Auto) Absolute Neuts (auto) PT INR APTT Sodium Potassium Chloride Carbon Dioxide Anion Gap BUN Creatinine Est GFR ( Amer) Est GFR (Non-Af Amer) POC Glucose (mg/dL) 71 79 Random Glucose Calcium Total Bilirubin AST ALT Alkaline Phosphatase Troponin I Total Protein Albumin Globulin Albumin/Globulin Ratio Lipase Urine Color Urine Appearance Urine pH Ur Specific [place] Urine Protein Urine Glucose (UA) Urine Ketones Urine Blood Urine Nitrate Urine Bilirubin Urine Urobilinogen Ur Leukocyte Esterase Urine RBC Urine WBC Ur Epithelial Cells Urine Bacteria Hepatitis A IgM Ab Hep Bs Antigen Hep B Core IgM Ab Attending/Attestation - Attestation I have personally seen and examined this patient.: Yes I have fully participated in the care of the patient.: Yes I have reviewed all pertinent clinical information: Yes Notes (Text): This is an addendum to the GI consultation report dictated by the fellow. The patient was seen and evaluated along with the fellow earlier today. Patient's son was at bedside. Patient was admitted with nausea vomiting. Also patient was found to have ascites probable cirrhosis of the liver. Patient's other comorbidities include diabetes mellitus chronic A. fib. The differential diagnosis for nausea should include erosive esophagitis, peptic ulcer disease and gastroparesis to be considered. Also requested ultrasound to rule out gallstones. Continue the patient on PPI. Patient is coagulopathic. Will await for cardiology input. To considering upper GI endoscopy evaluation patient would need further optimization of the medical condition prior to endoscopy evaluation. Reasonable thing is to consider diagnostic EGD once optimized by the cardiology We will request alpha-fetoprotein hepatitis profile and also autoimmune markers for further work-up to evaluate Chronic liver disease prob cirrhosis. 10/08/18 17:00
[2018-10-08 16:44] LABS: HEPATITIS B SURFACE AG Negative (NEGATIVE)
[2018-10-08 16:51] LABS: HEPATITIS A IGM NEGATIVE (NEGATIVE); HEPATITIS B CORE AB NEGATIVE (NEGATIVE)
[2018-10-08 17:02] LABS: HEPATITIS C ANTIBODY NEGATIVE (NEGATIVE)
[2018-10-08] MEDS: Morphine 2 mg/ml ISec IVP PRN (21:03)
--- NOTE | 2018-10-08 22:13 | PN ---
DATE: 10/08/2018 SUBJECTIVE: The patient is a 73-year-old seen and examined, complaining of abdominal discomfort. No more nausea noted. PHYSICAL EXAMINATION: VITAL SIGNS: She is afebrile. Pulse 71, respirations 19, blood pressure 113/61. LUNGS: Bilateral fair airflow. No rhonchi or crackles. HEART: S1 and S2 audible. ABDOMEN: Soft, slight right lower quadrant discomfort. No rebound. No guarding. NEUROLOGIC: She is awake. alert, and able to communicate. LABORATORY EXAM: WBC is 4.4, hemoglobin 9.8, hematocrit 30.8, and platelets 61. PT 38.9 and INR 3.5. Chemistry: Sodium 135.7, potassium 4.6, chloride 106, CO2 of 25, BUN 17, creatinine 0.6, blood sugar 79. Hepatitis profile is negative. Her EKG done shows distal small bowel obstruction and limited colitis to ascending colon. ASSESSMENT: 1. Abdominal pain, probably secondary to colitis with intractable nausea and history of intermittent diarrhea. 2. Thrombocytopenia. 3. Coronary artery disease. 4. Chronic atrial fibrillation, on Coumadin. 5. Hypertension. 6. Status post cholecystectomy in remote past. 7. Cardiac cirrhosis. PLAN: Dr. Guevara will continue the patient on metronidazole and Rocephin. We will order stool for C. diff., out of bed to chair, monitor blood sugar and we will follow up the patient. Olvin Dejesus MD
[2018-10-09] MEDS: metroNIDAZOLE IV 500 mg/100 ml 500 MG/100 ML BAG IVPB SCH ×3 (05:00→21:45)
[2018-10-09 06:38] LABS: EOS # 0.1 (0.0-0.7); EOS % 3.7 % (1.5-5.0); HEMOGLOBIN 9.4 g/dL (12.0-16.0); INR 2.92; LYMPH # 0.8 (1.2-3.4); LYMPH % 23.1 % (22.0-35.0); MEAN CELL VOLUME 80.4 fl (80.0-105.0); MEAN CORPUSCULAR HEMOGLOBIN 25.2 pg (25.0-35.0); MEAN CORPUSCULAR HGB CONC 31.3 g/dl (31.0-37.0); MEAN PLATELET VOLUME 10.5 fl (7.0-11.0); MONO # 0.4 (0.1-0.6); RBC 3.73 10^6/uL (3.5-6.1); RED CELL DISTRIBUTION WIDTH 17.3 % (11.5-14.5); WHITE BLOOD COUNT 3.6 10^3/uL (4.5-11.0)
[2018-10-09 06:46] LABS: IRON 59 ug/dL (45-180)
[2018-10-09 06:50] LABS: ALB/GLOB RATIO 0.9 (1.1-1.8); ALBUMIN 2.8 g/dL (3.0-4.8); ALT/SGPT 27 U/L (7-56); AST/SGOT 31 U/L (14-36); BLOOD UREA NITROGEN 15 mg/dL (7-21); CALCIUM 9.3 mg/dL (8.4-10.5); GFR NON-AFRICAN AMERICAN > 60
[2018-10-09 06:56] LABS: % IRON SATURATION 19 % (20-55); TOTAL IRON BINDING CAPACITY 317 ug/dL (265-497)
[2018-10-09] MEDS: Insulin Lispro (humaLOG) MEDIUM Coverage SC SCH ×4 (08:05→21:25)
--- NOTE | 2018-10-09 08:10 | CP.PCM.PN ---
<Asher Rivera - Last Filed: 10/09/18 19:09> Subjective - Date & Time of Evaluation Date of Evaluation: 10/09/18 Time of Evaluation: 08:00 - Subjective Subjective: Asher Rivera- Internal Medicine Resident- Progress Note on Behalf of Dr. Guevara Subjective: Patient seen and examined at [facility]. No acute overnight events. States abdominal pain has improved relative to baseline. Admits to tolerating diet. Denies n/v, diarrhea, and constipation. 12 point ROS negative except as indicated in the HPI Physical Examination: - Constitutional Appears: Non-toxic, No Acute Distress - Head Exam Head Exam: ATRAUMATIC, NORMAL INSPECTION, NORMOCEPHALIC - Eye Exam Eye Exam: EOMI, Normal appearance, PERRL - ENT Exam ENT Exam: Mucous Membranes Moist, Normal Exam - Neck Exam Neck exam: Positive for: Normal Inspection - Respiratory Exam Respiratory Exam: Clear to Auscultation Bilateral, NORMAL BREATHING PATTERN - Cardiovascular Exam Cardiovascular Exam: REGULAR RHYTHM, RRR, +S1, +S2 - GI/Abdominal Exam GI & Abdominal Exam: Distended, Normal Bowel Sounds, Soft. absent: Firm, Guarding, Tenderness - Rectal Exam Rectal Exam: Deferred - Extremities Exam Extremities exam: Positive for: full ROM, normal inspection - Neurological Exam Neurological exam: Alert, Oriented x3 - Skin Skin Exam: Dry, Intact, Normal Color, Warm Assessment and Plan: 73yF with a pmhx of A-fibrillation, DM, Cirrhosis, CHF, Thrombocytopenia who was admitted for evaluation and treatment of abdominal pain. Abdominal pain is ass ociated with nausea vomiting, and also diarrhea. 1. Abdominal pain, N/V 2. Cirrhosis 3. Afib on OAC 4. Ascites - 10/08/2018 CT Abdomen and Pelvis with contrast- Distal small bowel obstruction. Under filling of the stomach accentuating gastric wall thickening. Gastritis should be considered. Colitis limited to the ascending colon. Small volume abdominal pelvic ascites. Stable left adnexal cyst. Stable pneumobilia. - 10/08/2018 Abdominal US duplex- official read pending - Hep Panel reviewed- negative - Ammonia elevated- 64 - Continue rifaxamin and lactulose - Continue rocephina and flagyl - Recommend diagnostic paracentesis to determine etiology - Recommend cardiac evaluation for possible EGD - Clear liquid diet - Will follow closely Patient seen, case discussed with, and plan approved by attending physician, Dr. Guevara. Objective - Vital Signs/Intake and Output Vital Signs (last 24 hours): Temp Pulse Resp BP Pulse Ox 98 F 85 20 99/64 L 94 L 10/09/18 07:53 10/09/18 07:53 10/09/18 07:53 10/09/18 07:53 10/09/18 07:53 Intake and Output: 10/09/18 10/09/18 06:59 18:59 Intake Total 0 Balance 0 - Medications Medications: Current Medications Fluoxetine HCl (Prozac) 10 mg PO DAILY [facility] Last Admin: 10/08/18 10:41 Dose: 10 mg Metronidazole (Flagyl) 500 mg in 100 mls @ 100 mls/hr IVPB Q8 [facility]; Protocol Last Admin: 10/09/18 05:00 Dose: 100 mls/hr Ceftriaxone Sodium (Rocephin 1 Gram Ivpb) 1 gm in 100 mls @ 100 mls/hr IVPB DAILY [facility]; Protocol Last Admin: 10/08/18 10:41 Dose: 100 mls/hr Insulin Human Lispro (Humalog Med) 0 units SC ACHS [facility]; Protocol Last Admin: 10/08/18 22:34 Dose: Not Given Metoprolol Succinate (Toprol Xl) 50 mg PO BRKDIN [facility] Last Admin: 10/08/18 18:28 Dose: 50 mg Morphine Sulfate (Morphine) 1 mg IVP Q4H PRN PRN Reason: Pain, severe (8-10) Last Admin: 10/08/18 21:03 Dose: 1 mg Ondansetron HCl (Zofran Inj) 4 mg IVP Q6H PRN PRN Reason: Nausea/Vomiting Pantoprazole Sodium (Protonix Inj) 40 mg IVP DAILY [facility] Last Admin: 10/08/18 10:40 Dose: 40 mg Rifaximin (Xifaxan) 550 mg PO BID [facility]; Protocol Last Admin: 10/08/18 18:28 Dose: 550 mg - Labs Labs: 10/09/18 06:00 10/09/18 06:00 PT 33.0 SECONDS (9.4-12.5) H 10/09/18 06:00 INR 2.92 10/09/18 06:00 APTT 52.9 Seconds (26.9-38.3) H 10/07/18 17:15 <Hugh Guevaranereyda V - Last Filed: 10/09/18 21:47> Objective - Vital Signs/Intake and Output Vital Signs (last 24 hours): Temp Pulse Resp BP Pulse Ox 98.2 F 88 20 118/71 99 10/09/18 16:50 10/09/18 18:05 10/09/18 16:50 10/09/18 18:05 10/09/18 16:50 - Medications Medications: Current Medications Fluoxetine HCl (Prozac) 10 mg PO DAILY [facility] Last Admin: 10/09/18 11:57 Dose: 10 mg Metronidazole (Flagyl) 500 mg in 100 mls @ 100 mls/hr IVPB Q8 [facility]; Protocol Last Admin: 10/09/18 14:01 Dose: 100 mls/hr Ceftriaxone Sodium (Rocephin 1 Gram Ivpb) 1 gm in 100 mls @ 100 mls/hr IVPB DAILY [facility]; Protocol Last Admin: 10/09/18 10:26 Dose: 100 mls/hr Insulin Human Lispro (Humalog Med) 0 units SC ACHS [facility]; Protocol Last Admin: 10/09/18 21:25 Dose: Not Given Lactulose (Enulose) 10 gm PO HS [facility] Last Admin: 10/09/18 21:23 Dose: 10 gm Metoprolol Succinate (Toprol Xl) 50 mg PO BRKDIN [facility] Last Admin: 10/09/18 18:05 Dose: 50 mg Morphine Sulfate (Morphine) 1 mg IVP Q4H PRN PRN Reason: Pain, severe (8-10) Last Admin: 10/08/18 21:03 Dose: 1 mg Ondansetron HCl (Zofran Inj) 4 mg IVP Q6H PRN PRN Reason: Nausea/Vomiting Pantoprazole Sodium (Protonix Inj) 40 mg IVP DAILY [facility] Last Admin: 10/09/18 10:27 Dose: 40 mg Tramadol/Acetaminophen (Ultracet 37.5/325 Mg) 1 tab PO Q6H PRN PRN Reason: Pain, moderate (4-7) - Labs Labs: 10/09/18 06:00 10/09/18 06:00 PT 33.0 SECONDS (9.4-12.5) H 10/09/18 06:00 INR 2.92 10/09/18 06:00 APTT 52.9 Seconds (26.9-38.3) H 10/07/18 17:15 Attending/Attestation - Attestation I have personally seen and examined this patient.: Yes I have fully participated in the care of the patient.: Yes I have reviewed all pertinent clinical information, including history, physical exam and plan: Yes Notes (Text): This patient was seen and evaluated earlier along with the resident. This is an addendum to the GI progress report dictated by the resident. Patient was feeling slightly better tolerating diet. Cardiology evaluation noticed. Patient is still coagulopathic INR is over 2.9. Coumadin has been on hold. Probable cardiac cirrhosis as per the history however we will request for a hepatitis profile and basic work-up. Patient has ascites Large adnexal lesion. Previous pelvic sonogram and CT is reviewed. It is reasonable to repeat the pelvic sonogram. Patient has compensated CHF status post defibrillator placement EGD may be reasonable to further evaluate abdominal pain. The differential diagnosis includes peptic ulcer disease gastroparesis, congestive hepatomegaly and erosive esophagitis. We will consider diagnostic EGD once INR is less than 2.5 10/09/18 21:44
[2018-10-09] MEDS: Metoprolol Succinate 50 mg XL Tab PO SCH ×2 (08:11→18:05)
[2018-10-09] MEDS ORDERED: TraMADol/Apap 37.5/325 mg Tab PO PRN (08:40)
--- NOTE | 2018-10-09 09:23 | US ---
PROCEDURE: Portal vein duplex ultrasound. CLINICAL HISTORY: Cirrhosis. Deteriorating liver function. Evaluate for portal vein thrombosis. PHYSICIAN(S): Frank Mcneal M.D. FINDINGS: Hepatic parenchyma is heterogeneous. Limited images demonstrate no obvious mass. The extrahepatic portal vein is patent with hepatopetal flow. The hepatic artery is patent. Limited imaging of the central patent veins are patent. There is a small amount of ascites in the upper abdomen The spleen is enlarged. IMPRESSION: 1. Patent portal vein with hepatopetal flow.
[2018-10-09] MEDS: cefTRIAXone 1 gm 1 GM/100 ML BAG IVPB SCH (10:26)
--- NOTE | 2018-10-09 11:05 | CP.PCM.PCO ---
Physician Communication Note - Physician Communication Note Physician Communication Note: [id number] cirrhossis/Hypersplenism/Moving bowels now
--- NOTE | 2018-10-09 12:23 | CON ---
DATE: 10/09/2018 CONSULTATION REQUESTING PHYSICIAN: Dr. Dejesus. REASON FOR CONSULTATION: Preoperative cardiac evaluation. HISTORY: This is a 73-year-old woman known to me from prior admissions with a history of congestive cardiomyopathy, chronic atrial fibrillation, prior ICD implant, who was admitted with severe nausea and vomiting and abdominal discomfort. She was being considered for a possible surgical intervention for a small bowel obstruction; however, her symptoms had somewhat improved. She is scheduled for an endoscopy later today. She denies any recent chest pain. She has had no recent defibrillator firings, she has chronic exertional dyspnea. PAST MEDICAL HISTORY: Her past history is known for the problems mentioned above. She reportedly has a history of cardiac cirrhosis and chronic thrombocytopenia. ALLERGIES: NO KNOWN DRUG ALLERGIES. SEVERAL FOOD ALLERGIES ARE DOCUMENTED. CURRENT MEDICATIONS: Her current medications include IV Flagyl, insulin coverage, Protonix 40 mg daily, Prozac, Rocephin, Toprol XL 50 mg daily, Xifaxan, tramadol, and Zofran. SOCIAL HISTORY: She does not smoke or drink. She is , lives with her . FAMILY HISTORY: Both parents are from age-related illness. REVIEW OF SYSTEMS: A 12-point review of systems is, otherwise, unremarkable. She has had no recent edema. Denies any PND or orthopnea. PHYSICAL EXAMINATION: GENERAL: She is a middle-aged woman, who appears comfortable at the present time. VITAL SIGNS: Her blood pressure is 100/64, with a pulse of 86 and irregularly regular, respirations are 14. She is afebrile. HEENT: Normocephalic, atraumatic. NECK: Supple. No JVD noted. Carotid upstrokes are 1+ bilaterally. CHEST: Reveals few scattered rhonchi. HEART: PMI displaced bilaterally with an irregular regular rhythm; this systolic murmur is present at the lower left sternal border. ABDOMEN: Soft, mildly obese, nontender with normoactive bowel sounds. EXTREMITIES: No clubbing, cyanosis, or edema. SKIN: Warm and dry. PSYCHIATRIC: Normal mood and affect. NEUROLOGIC: Alert and oriented x3 and no obvious gross motor or sensory deficits present. DIAGNOSTIC DATA: Potassium is 4.1. BUN and creatinine 15 and 0.7. White count 3.6, hemoglobin and hematocrit of 9.4 and 30, with a platelet count of 61,000. Electrocardiogram reveals atrial fibrillation with a rapid ventricular response; PVCs versus Lul beats are present. Prior anterior myocardial infarction pattern cannot be excluded; nonspecific ST-T abnormalities are noted. Chest x-ray reveals a large cardiac silhouette with clear lung romano. ICD system is in place. IMPRESSION: 1. Chronic heart failure, congestive, appears compensated at the present time, predominantly systolic. 2. Congestive cardiomyopathy. 3. Status post ICD implant with no recent firings; she cannot recall the last time her defibrillator was checked. She had previously been under the care of Dr. Bowden, but she cannot recall when she saw him last. 4. Resolving small bowel obstruction. 5. Chronic thrombocytopenia. 6. History of cardiac cirrhosis. 7. Rest of the problems as noted. RECOMMENDATIONS: From a cardiac standpoint, she appears stable and optimized to proceed with endoscopy today as planned. Her prior old records will be reviewed. Her current cardiac medications will continue as tolerated. Attempts will be made to arrange for a defibrillator interrogation while she is in the hospital. Thank you for this consultation. We will be happy to follow. Farhan Martinez MD
--- NOTE | 2018-10-09 12:34 | CP.PCM.PN ---
Subjective - Date & Time of Evaluation Date of Evaluation: 10/09/18 Time of Evaluation: 12:08 - Subjective Subjective: SURGERY NOTE FOR DR. SILVERMAN 73F seen and examined at bedside. Patient doing well, states she feels much better, denies abdominal pain, nausea, vomiting, She is having bowel movements. Objective - Vital Signs/Intake and Output Vital Signs (last 24 hours): Temp Pulse Resp BP Pulse Ox 98 F 85 20 99/64 L 94 L 10/09/18 07:53 10/09/18 08:11 10/09/18 07:53 10/09/18 08:11 10/09/18 07:53 Intake and Output: 10/09/18 10/09/18 06:59 18:59 Intake Total 0 Balance 0 - Medications Medications: Current Medications Fluoxetine HCl (Prozac) 10 mg PO DAILY [facility] Last Admin: 10/09/18 11:57 Dose: 10 mg Metronidazole (Flagyl) 500 mg in 100 mls @ 100 mls/hr IVPB Q8 [facility]; Protocol Last Admin: 10/09/18 05:00 Dose: 100 mls/hr Ceftriaxone Sodium (Rocephin 1 Gram Ivpb) 1 gm in 100 mls @ 100 mls/hr IVPB DAILY [facility]; Protocol Last Admin: 10/09/18 10:26 Dose: 100 mls/hr Insulin Human Lispro (Humalog Med) 0 units SC ACHS [facility]; Protocol Last Admin: 10/09/18 11:48 Dose: Not Given Metoprolol Succinate (Toprol Xl) 50 mg PO BRKDIN [facility] Last Admin: 10/09/18 08:11 Dose: 50 mg Morphine Sulfate (Morphine) 1 mg IVP Q4H PRN PRN Reason: Pain, severe (8-10) Last Admin: 10/08/18 21:03 Dose: 1 mg Ondansetron HCl (Zofran Inj) 4 mg IVP Q6H PRN PRN Reason: Nausea/Vomiting Pantoprazole Sodium (Protonix Inj) 40 mg IVP DAILY [facility] Last Admin: 10/09/18 10:27 Dose: 40 mg Rifaximin (Xifaxan) 550 mg PO BID [facility]; Protocol Last Admin: 10/09/18 11:57 Dose: 550 mg Tramadol/Acetaminophen (Ultracet 37.5/325 Mg) 1 tab PO Q6H PRN PRN Reason: Pain, moderate (4-7) - Labs Labs: 10/09/18 06:00 10/09/18 06:00 PT 33.0 SECONDS (9.4-12.5) H 10/09/18 06:00 INR 2.92 10/09/18 06:00 APTT 52.9 Seconds (26.9-38.3) H 10/07/18 17:15 - Constitutional Appears: Non-toxic, No Acute Distress - Respiratory Exam Respiratory Exam: Clear to Ausculation Bilateral, NORMAL BREATHING PATTERN - Cardiovascular Exam Cardiovascular Exam: REGULAR RHYTHM, +S1, +S2 - GI/Abdominal Exam GI & Abdominal Exam: Soft, Hernia (reducible ). absent: Distended, Firm, Guarding, Rigid, Tenderness, Rebound - Neurological Exam Neurological Exam: Alert, Awake - Skin Skin Exam: Dry, Intact, Normal Color, Warm Assessment and Plan - Assessment and Plan (Free Text) Assessment: 73F with abdominal pain, resolved, colitis, cirrhosis Plan: - Patient going for EGD today - Advance diet following procedure - continue pain control - will follow Further recs discuss with Dr. Crystal Saucedo, PGY3
[2018-10-09 13:05] LABS: FOLATE 9.6 ng/mL
--- NOTE | 2018-10-09 16:55 | CP.PCM.APN ---
Subjective - Date & Time of Evaluation Date of Evaluation: 10/09/18 Time of Evaluation: 11:00 - Subjective Subjective: Pt. seen and examined sitting up in bed, on clear liquid diet, denied any nausea, vomiting at present, denied abdominal pain. Objective - Vital Signs/Intake and Output Vital Signs (last 24 hours): Temp Pulse Resp BP Pulse Ox 98.2 F 88 20 118/71 99 10/09/18 16:50 10/09/18 16:50 10/09/18 16:50 10/09/18 16:50 10/09/18 16:50 Intake and Output: 10/09/18 10/09/18 06:59 18:59 Intake Total 0 Balance 0 - Medications Medications: Current Medications Fluoxetine HCl (Prozac) 10 mg PO DAILY [facility] Last Admin: 10/09/18 11:57 Dose: 10 mg Metronidazole (Flagyl) 500 mg in 100 mls @ 100 mls/hr IVPB Q8 [facility]; Protocol Last Admin: 10/09/18 14:01 Dose: 100 mls/hr Ceftriaxone Sodium (Rocephin 1 Gram Ivpb) 1 gm in 100 mls @ 100 mls/hr IVPB DAILY [facility]; Protocol Last Admin: 10/09/18 10:26 Dose: 100 mls/hr Insulin Human Lispro (Humalog Med) 0 units SC ACHS [facility]; Protocol Last Admin: 10/09/18 11:48 Dose: Not Given Lactulose (Enulose) 10 gm PO [facility] Metoprolol Succinate (Toprol Xl) 50 mg PO BRKDIN [facility] Last Admin: 10/09/18 08:11 Dose: 50 mg Morphine Sulfate (Morphine) 1 mg IVP Q4H PRN PRN Reason: Pain, severe (8-10) Last Admin: 10/08/18 21:03 Dose: 1 mg Ondansetron HCl (Zofran Inj) 4 mg IVP Q6H PRN PRN Reason: Nausea/Vomiting Pantoprazole Sodium (Protonix Inj) 40 mg IVP DAILY [facility] Last Admin: 10/09/18 10:27 Dose: 40 mg Tramadol/Acetaminophen (Ultracet 37.5/325 Mg) 1 tab PO Q6H PRN PRN Reason: Pain, moderate (4-7) - Labs Labs: 10/09/18 06:00 10/09/18 06:00 PT 33.0 SECONDS (9.4-12.5) H 10/09/18 06:00 INR 2.92 10/09/18 06:00 APTT 52.9 Seconds (26.9-38.3) H 10/07/18 17:15 - Constitutional Appears: Well, Non-toxic - Head Exam Head Exam: NORMOCEPHALIC - Eye Exam Eye Exam: Normal appearance - ENT Exam ENT Exam: Mucous Membranes Moist, Normal Exam - Neck Exam Neck Exam: Full ROM - Respiratory Exam Respiratory Exam: Clear to Ausculation Bilateral - Cardiovascular Exam Cardiovascular Exam: REGULAR RHYTHM, +S1, +S2 - GI/Abdominal Exam GI & Abdominal Exam: Soft - Rectal Exam Rectal Exam: Deferred - Exam Exam: absent: Circumcision, NORMAL INSPECTION, Scrotal Swelling, Testicular Tenderness, Uretheral Discharge, Testicular Vertical Lie, Bladder Distension External exam: absent: Ecchymosis, Erythema, Lacerations, Lesions, NORMAL EXTERNAL EXAM, Swelling Speculum exam: absent: Cervical Discharge, Erythema, Foreign Body, Laceration, NORMAL SPECULUM EXAM, Tissue, Vaginal Bleeding, Vaginal Discharge Bimanual exam: absent: Adenexal Mass, Adnexal, Cervical Motion Tendernes, NORMAL BIMANUAL EXAM, Uterine Enlargement, Uterine Tenderness - Extremities Exam Extremities Exam: Full ROM, Normal Inspection - Back Exam Back Exam: NORMAL INSPECTION - Neurological Exam Neurological Exam: Alert, Awake, Oriented x3 - Psychiatric Exam Psychiatric exam: Normal Affect, Normal Mood - Skin Skin Exam: Dry, Intact, Normal Color, Warm Assessment and Plan - Assessment and Plan (Free Text) Assessment: ITS Impressions Abdomen/Pelvis CT 10/07/18 17:17 IMPRESSION: Distal small bowel obstruction. Under filling of the stomach accentuating gastric wall thickening. Gastritis should be considered. Colitis limited to the ascending colon. Small volume abdominal pelvic ascites. Stable left adnexal cyst. Stable pneumobilia. Concordant results (preliminary interpretation) provided by [employer] [facility]. Procedure Completed: 20:17. Preliminary Report: Interpreted and electronically signed: 21:22. Final Interpretation: 09:32. October 08, 2018. Chest X-Ray 10/07/18 17:17 IMPRESSION: No active disease. No significant interval change compared to the prior examination(s). Abdomen Ultrasound 10/08/18 12:56 IMPRESSION: 1. Patent portal vein with hepatopetal flow. Assessment: 73yF with a pmhx of A-fibrillation, DM, Cirrhosis, CHF, Thrombocytopenia who was admitted for evaluation and treatment of abdominal pain. associated with nausea vomiting, and also diarrhea. Plan: 1. Abdominal pain, N/V, likely r/t distal SBO- Liquied diet as per GI-For EGD pending cardiac and pulmonary clearance,cont rocephin, Flagyl,IVF 2. Cirrhosis -likely r/t hepatic congestion r/t CHF, monitor ammonia levels, trend. 3. Pancytopenia, likely r/t splenomegaly? Cont current meds, further recs per GI. PT eval pending.
--- NOTE | 2018-10-09 16:56 | PN ---
DATE: 10/09/2018 SUBJECTIVE: The patient is a 73-year-old, seen and examined. She states her nausea is almost gone. She is hungry. She wants to eat and drink something. She was made n.p.o. for possible endoscopy. She was cleared by Cardiology; however, she need to be seen by financial management to rule out pulmonary hypertension since she has lot of comorbidity. Dr. Guevara did discuss with the patient's son who was by the bedside yesterday. He has lot of concerns about mom's recurrent hospitalization and abdominal pain. He states this patient's mom is not same since she has laparotomy done after the complication of cholecystectomy. PHYSICAL EXAMINATION GENERAL: Today she looks comfortable, sitting in chair. She is hungry asking for food. VITAL SIGNS: She is afebrile. Pulse 85, respirations 20, blood pressure 99/64. LUNGS: Bilateral fair airflow. No rhonchi or crackle. HEART: S1 and S2 audible. ABDOMEN: Soft and nontender. No rebound. No guarding. Except right lower quadrant there is a lump, that I reviewed with Dr. Guevara that seem to be fatty deposit. NEUROLOGIC: She is awake and alert, able to communicate. LABORATORY DATA: WBC is 3.6, hemoglobin 9.4, hematocrit 30, and platelets 61. PT 33.0 and INR 2.92. Chemistry; sodium 137, potassium 4.1, chloride 106, CO2 of 25, BUN 15, creatinine 0.7, blood sugar 121. Ammonia level is 64. Urine nitrite positive. Hepatitis profile is negative. CT scan of the abdomen and pelvis was done that shows patent portal vein with hepatopetal flow. ASSESSMENT: 1. Abdominal pain, etiology multifactorial. 2. Gastroparesis versus partial small bowel infection. 3. Coronary artery disease, status post multiple angioplasty. 4. Cardiac cirrhosis. 5. Insulin-dependent diabetes. 6. Thrombocytopenia. PLAN: Currently, the patient is on Flagyl and Rocephin. We will start her on liquid diet. She has been started on Xifaxan. We will give her dose of lactulose. The patient is seen by financial management. We will proceed for endoscopy and colonoscopy if it is safe for her to go under anesthesia. We will make further plan after their input. Olvin Dejesus MD [facility] # [id number]
[2018-10-10] MEDS: metroNIDAZOLE IV 500 mg/100 ml 500 MG/100 ML BAG IVPB SCH ×3 (05:45→21:48)
[2018-10-10] MEDS: Insulin Lispro (humaLOG) MEDIUM Coverage SC SCH ×4 (08:45→23:30)
[2018-10-10] MEDS: Metoprolol Succinate 50 mg XL Tab PO SCH ×2 (08:49→17:43)
--- NOTE | 2018-10-10 10:11 | CP.PCM.PN ---
Subjective - Date & Time of Evaluation Date of Evaluation: 10/10/18 Time of Evaluation: 06:45 - Subjective Subjective: General Surgery Dr. Benedict Pt seen and examined @bedside. No acute events overnight. pt has no complaints. denies F/C, N/V, abd pain, D/C. tolerating diet. (+)BM/Flatus. Objective - Vital Signs/Intake and Output Vital Signs (last 24 hours): Temp Pulse Resp BP Pulse Ox 97.8 F 92 H 18 124/70 98 10/10/18 08:51 10/10/18 08:51 10/10/18 08:51 10/10/18 08:51 10/10/18 08:51 Intake and Output: 10/10/18 10/10/18 06:59 18:59 Intake Total 120 Balance 120 - Medications Medications: Current Medications Fluoxetine HCl (Prozac) 10 mg PO DAILY [facility] Last Admin: 10/09/18 11:57 Dose: 10 mg Metronidazole (Flagyl) 500 mg in 100 mls @ 100 mls/hr IVPB Q8 [facility]; Protocol Last Admin: 10/10/18 05:45 Dose: 100 mls/hr Ceftriaxone Sodium (Rocephin 1 Gram Ivpb) 1 gm in 100 mls @ 100 mls/hr IVPB DAILY [facility]; Protocol Last Admin: 10/09/18 10:26 Dose: 100 mls/hr Insulin Human Lispro (Humalog Med) 0 units SC ACHS [facility]; Protocol Last Admin: 10/10/18 08:45 Dose: Not Given Lactulose (Enulose) 10 gm PO HS [facility] Last Admin: 10/09/18 21:23 Dose: 10 gm Metoprolol Succinate (Toprol Xl) 50 mg PO BRKDIN [facility] Last Admin: 10/10/18 08:49 Dose: 50 mg Morphine Sulfate (Morphine) 1 mg IVP Q4H PRN PRN Reason: Pain, severe (8-10) Last Admin: 10/08/18 21:03 Dose: 1 mg Ondansetron HCl (Zofran Inj) 4 mg IVP Q6H PRN PRN Reason: Nausea/Vomiting Pantoprazole Sodium (Protonix Inj) 40 mg IVP DAILY [facility] Last Admin: 10/09/18 10:27 Dose: 40 mg Tramadol/Acetaminophen (Ultracet 37.5/325 Mg) 1 tab PO Q6H PRN PRN Reason: Pain, moderate (4-7) - Labs Labs: 10/09/18 06:00 10/09/18 06:00 PT 33.0 SECONDS (9.4-12.5) H 10/09/18 06:00 INR 2.92 10/09/18 06:00 APTT 52.9 Seconds (26.9-38.3) H 10/07/18 17:15 - Constitutional Appears: Non-toxic, No Acute Distress - Head Exam Head Exam: NORMAL INSPECTION - Eye Exam Eye Exam: Normal appearance - ENT Exam ENT Exam: Mucous Membranes Moist - Respiratory Exam Respiratory Exam: NORMAL BREATHING PATTERN. absent: Accessory Muscle Use, Respiratory Distress - Cardiovascular Exam Cardiovascular Exam: absent: Bradycardia, Tachycardia - GI/Abdominal Exam GI & Abdominal Exam: Soft. absent: Distended, Firm, Guarding, Rigid, Tend erness, Rebound - Extremities Exam Extremities Exam: Normal Inspection - Neurological Exam Neurological Exam: Alert, Awake, Oriented x3 - Psychiatric Exam Psychiatric exam: Normal Affect, Normal Mood - Skin Skin Exam: Dry, Intact, Normal Color, Warm Assessment and Plan - Assessment and Plan (Free Text) Assessment: 73 y/o F w/ abdominal pain, resolved, colitis, and cirrhosis Plan: - f/u GI recs --> EGD tomorrow 10/11 - ADAT - continue pain management - monitor bowel fxn - cont medical management Pt discussed w/ Dr. Jak Barrera PGY3
--- NOTE | 2018-10-10 10:23 | CON ---
DATE OF CONSULTATION: 10/10/2018 PULMONARY CONSULTATION HISTORY OF PRESENT ILLNESS: We are being asked to see this 73-year-old woman for pulmonary clearance for upcoming endoscopy and upper and lower endoscopies by Dr. Guevara. The patient has no respiratory symptoms at this time. She was admitted for the GI complaints. I am informed by the nurse that the patient has a history of pulmonary hypertension and chronic obstructive pulmonary disease. There is no evidence of the chart to suggest these diseases. There are no laboratory data available for me to review at this time. PAST MEDICAL HISTORY: Has been reviewed. The patient has chronic atrial fibrillation and insulin-dependent diabetes mellitus. She also has cardiac cirrhosis and congestive heart failure. There is a history of thrombocytopenia. The patient has a pacemaker. She has mediastinal lymphadenopathy. Biopsy of the lymphadenopathy of the mediastinum was apparently negative, but there is no significant diagnosis at this time. The patient is cared for Dr. Aparna Sullivan in [place], but is being cared for by Dr. Dejesus during her hospitalization. I will need to contact Dr. Sullivan to get further information, to obtain a full evaluation of this patient. ALLERGIES: KIWI, POPPY SEEDS, AND SHELLFISH. HOME MEDICATIONS: Include Coumadin, simvastatin, metoprolol, losartan, Prozac, Aricept, digoxin, and aspirin. FAMILY HISTORY: HTN SOCIAL HISTORY: The patient is . Has no smoking history. No travel history. No occupational history. REVIEW OF SYSTEMS: Essentially unremarkable other than the myriad of problems described above. All other systems negative. PHYSICAL EXAMINATION: GENERAL: The patient is awake and alert, oriented, awaiting further evaluation and treatment. VITAL SIGNS: Remained stable. She is afebrile, pulse 90, respiratory rate 18, blood pressure 120/60. NECK: Supple. No jugular venous distention. No lymphadenopathy. HEART: Irregular rhythm, S1, S2. Soft systolic ejection murmur. CHEST: Good air flow, no increased AP diameter. No prolonged expiratory phase. No rales, rhonchi, or wheezing noted. GASTROINTESTINAL: Abdomen is protuberant, soft, slight tenderness. No mass, guarding, or rebound. : Within normal limits NEUROLOGIC: Awake, alert, oriented, no focal findings. LYMPH NODES - No lymphadenopathy noted in the supraclavicular area or the cervical, inguinal, or axillary areas. SKIN: Dry; intact LABORATORY DATA: White count 5000, hemoglobin 10.9, hematocrit 34. Sodium 137, chloride 101, BUN 20, creatinine 0.6. PT 33. Radiologic evaluation of the chest done on 10/07/2018 shows no active pulmonary disease. There is no pulmonary vascular congestion. There is cardiomegaly however, pacemaker is noted. EKG, atrial fibrillation, nonspecific ST-T wave changes, rapid ventricular response. CLINICAL IMPRESSION: There is no evidence of acute pulmonary problems at this time from physical examination and the limited history available, whether the patient in fact does have pulmonary hypertension and/or chronic obstructive pulmonary disease is not clear. There is no increased AP diameter or prolonged expiratory phase. There is no wheezing. Echocardiogram or other data regarding the cardiac condition is not available. As a result, I am unsure as to the patient's possible pulmonary status, and therefore, I cannot clear her for any procedure. PLAN: I will attempt to discuss the case at length with Dr. Sullivan later today. Further information is required to make further determinations. At this time, the patient appears to be comfortable and stable with normal vital signs. We will discuss with Dr. Guevara and Dr. Dejesus. Coronary artery disease seems to be the more prevalent problems. We will follow closely with you after further discussion and obtaining further medical records. Alonzo Samuels MD [facility]TD[facility]
--- NOTE | 2018-10-10 11:27 | PN ---
DATE: 10/10/2018 SUBJECTIVE: The patient is seen lying in bed on 3R. She is comfortable at present time. Her nausea is improved and her vomiting in subsided. She denies any chest pain or dyspnea. CURRENT MEDICATIONS: Include lactulose, Flagyl, insulin coverage, Protonix, Prozac, Rocephin, Toprol XL 50 mg twice a day and Ultracet p.r.n. OBJECTIVE: GENERAL: She is a middle-aged woman who is comfortable at rest. VITAL SIGNS: Blood pressure 124/70, pulse 90, respirations are 14. She is afebrile. HEENT: No JVD. CHEST: Few scattered rhonchi heard. HEART: PMI displaced laterally with soft tones noted. ABDOMEN: Soft and nontender. Bowel sounds present. EXTREMITIES: No edema. DIAGNOSTIC DATA: Morning blood work is pending. IMPRESSION: 1. Apparent small bowel obstruction appears to be resolving with conservative measures. 2. Chronic congestive heart failure appears compensated present time, predominantly systolic. 3. Status post implantable cardioverter-defibrillator implant. 4. Chronic thrombocytopenia. 5. History of cardiac cirrhosis. RECOMMENDATIONS: Her current medications should continue for now. She does not appear to be in overt heart failure at present. She is stable to proceed with endoscopic procedures as needed. Baseline echocardiogram will be repeated. Arrangements has been made for [facility] to come and perform a defibrillator interrogation as it has been some time since this has been monitored. I will continue to follow and make further recommendations as appropriate. Farhan Martinez MD [facility]TD[facility]
[2018-10-10] MEDS: cefTRIAXone 1 gm 1 GM/100 ML BAG IVPB SCH (12:12)
--- NOTE | 2018-10-10 13:43 | CP.PCM.PN ---
<Lemuel Barr - Last Filed: 10/10/18 16:34> Subjective - Date & Time of Evaluation Date of Evaluation: 10/10/18 Time of Evaluation: 09:00 - Subjective Subjective: PGY6 GI Fellow Progress Note Patient seen and examined bedside this morning. The patient states that she is feeling well today and has no new complaints. No events overnight. 12 system ROS performed and negative except where stated Objective - Vital Signs/Intake and Output Vital Signs (last 24 hours): Temp Pulse Resp BP Pulse Ox 97.8 F 92 H 18 124/70 98 10/10/18 08:51 10/10/18 08:51 10/10/18 08:51 10/10/18 08:51 10/10/18 08:51 Intake and Output: 10/10/18 10/10/18 06:59 18:59 Intake Total 120 Balance 120 - Medications Medications: Current Medications Fluoxetine HCl (Prozac) 10 mg PO DAILY [facility] Last Admin: 10/10/18 12:14 Dose: 10 mg Metronidazole (Flagyl) 500 mg in 100 mls @ 100 mls/hr IVPB Q8 [facility]; Protocol Last Admin: 10/10/18 05:45 Dose: 100 mls/hr Ceftriaxone Sodium (Rocephin 1 Gram Ivpb) 1 gm in 100 mls @ 100 mls/hr IVPB DAILY [facility]; Protocol Last Admin: 10/10/18 12:12 Dose: 100 mls/hr Insulin Human Lispro (Humalog Med) 0 units SC ACHS [facility]; Protocol Last Admin: 10/10/18 08:45 Dose: Not Given Lactulose (Enulose) 10 gm PO HS [facility] Last Admin: 10/09/18 21:23 Dose: 10 gm Metoprolol Succinate (Toprol Xl) 50 mg PO BRKDIN [facility] Last Admin: 10/10/18 08:49 Dose: 50 mg Morphine Sulfate (Morphine) 1 mg IVP Q4H PRN PRN Reason: Pain, severe (8-10) Last Admin: 10/08/18 21:03 Dose: 1 mg Ondansetron HCl (Zofran Inj) 4 mg IVP Q6H PRN PRN Reason: Nausea/Vomiting Pantoprazole Sodium (Protonix Inj) 40 mg IVP DAILY [facility] Last Admin: 10/10/18 12:13 Dose: 40 mg Tramadol/Acetaminophen (Ultracet 37.5/325 Mg) 1 tab PO Q6H PRN PRN Reason: Pain, moderate (4-7) - Labs Labs: 10/09/18 06:00 10/09/18 06:00 PT 33.0 SECONDS (9.4-12.5) H 10/09/18 06:00 INR 2.92 10/09/18 06:00 APTT 52.9 Seconds (26.9-38.3) H 10/07/18 17:15 - Constitutional Appears: Non-toxic, No Acute Distress - Eye Exam Eye Exam: EOMI, PERRL - ENT Exam ENT Exam: Mucous Membranes Moist - Respiratory Exam Respiratory Exam: Clear to Ausculation Bilateral. absent: Rales, Rhonchi, Wheezes - Cardiovascular Exam Cardiovascular Exam: RRR, +S1, +S2 - GI/Abdominal Exam GI & Abdominal Exam: Soft, Normal Bowel Sounds. absent: Distended, Firm, Guarding, Rigid, Tenderness, Organomegaly - Extremities Exam Extremities Exam: Normal Inspection. absent: Pedal Edema - Neurological Exam Neurological Exam: Alert, Awake, Oriented x3 - Psychiatric Exam Psychiatric exam: Normal Affect, Normal Mood - Skin Skin Exam: Dry, Warm Assessment and Plan - Assessment and Plan (Free Text) Assessment: Patient is a 73yo female with PMHx significant for atrial fibrillation, diabetes and cryptogenic cirrhosis who presented with complaint of abdominal pain -Cryptogenic cirrhosis c/b ascites -Ascending colitis -Atrial fibrillation on OAC Plan: -Lab work and clinical picture suspicious for cryptogenic cirrhosis despite LFTs and imaging -Plan for endoscopic evaluation tomorrow - R/O esophageal varices or changes of portal hypertension; gastritis or PUD -Hepatitis serologies unremarkable -Consider autoimmune work up pending findings - AXEL, AMA, SMA, IgG -On low dose lactulose therapy for prevention of HE -Pulmonary input noted - unclear diagnoses of COPD/Pulm HTN -Cardiology clearance for endoscopy noted <Mariposa Guevara V - Last Filed: 10/11/18 20:42> Objective - Vital Signs/Intake and Output Vital Signs (last 24 hours): Temp Pulse Resp BP Pulse Ox 97.8 F 85 18 116/71 98 10/10/18 08:51 10/10/18 17:43 10/10/18 08:51 10/10/18 17:43 10/10/18 08:51 Intake and Output: 10/10/18 10/11/18 18:59 06:59 Intake Total 920 Balance 920 - Medications Medications: Current Medications Fluoxetine HCl (Prozac) 10 mg PO DAILY [facility] Last Admin: 10/10/18 12:14 Dose: 10 mg Ceftriaxone Sodium (Rocephin 1 Gram Ivpb) 1 gm in 100 mls @ 100 mls/hr IVPB DAILY [facility]; Protocol Last Admin: 10/10/18 12:12 Dose: 100 mls/hr Insulin Human Lispro (Humalog Med) 0 units SC ACHS [facility]; Protocol Last Admin: 10/10/18 23:30 Dose: Not Given Lactulose (Enulose) 10 gm PO HS [facility] Last Admin: 10/10/18 21:48 Dose: 10 gm Metoprolol Succinate (Toprol Xl) 50 mg PO BRKDIN [facility] Last Admin: 10/10/18 17:43 Dose: 50 mg Morphine Sulfate (Morphine) 1 mg IVP Q4H PRN PRN Reason: Pain, severe (8-10) Last Admin: 10/08/18 21:03 Dose: 1 mg Ondansetron HCl (Zofran Inj) 4 mg IVP Q6H PRN PRN Reason: Nausea/Vomiting Pantoprazole Sodium (Protonix Inj) 40 mg IVP DAILY [facility] Last Admin: 10/10/18 12:13 Dose: 40 mg Tramadol/Acetaminophen (Ultracet 37.5/325 Mg) 1 tab PO Q6H PRN PRN Reason: Pain, moderate (4-7) - Labs Labs: 10/09/18 06:00 10/09/18 06:00 PT 33.0 SECONDS (9.4-12.5) H 10/09/18 06:00 INR 2.92 10/09/18 06:00 APTT 52.9 Seconds (26.9-38.3) H 10/07/18 17:15 Attending/Attestation - Attestation I have personally seen and examined this patient.: Yes I have fully participated in the care of the patient.: Yes I have reviewed all pertinent clinical information, including history, physical exam and plan: Yes Notes (Text): This patient was seen and evaluated earlier. Cardiology and pulmonary note was reviewed discussed with nursing staff. Patient is admitted with the upper abdominal pain. Ascites would benefit from diagnostic EGD to rule out varices rule out peptic ulcer disease rule out neoplasia discussed with the patient at length patient is agreed . Patient to be scheduled for EGD 10/11/18 06:34 10/11/18 20:40
--- NOTE | 2018-10-10 14:19 | CP.PCM.PCO ---
Physician Communication Note - Physician Communication Note Physician Communication Note: possible EGD in am
--- NOTE | 2018-10-10 15:27 | PN ---
DATE: 10/10/2018 SUBJECTIVE: The patient is a 73-year-old, seen and examined. She states her abdominal discomfort has almost resolved. Tolerating liquid diet, want to eat more. She is hungry. PHYSICAL EXAMINATION: VITAL SIGNS: She is afebrile, pulse 92, respirations 18, blood pressure 124/70. LUNGS: Bilateral fair airflow. No rhonchi or crackle. HEART: S1 and S2 audible. ABDOMEN: Soft, obese, and nontender. No rebound. No guarding. NEUROLOGIC: The patient is awake and alert; able to communicate. LABORATORY DATA: Blood sugar is 127. PT yesterday was 33.0, INR 2.92. She had echocardiogram done and it is pending. ASSESSMENT: 1. Intermittent abdominal pain, could be variety of reason including gastroparesis, partial small bowel obstruction because of a from extensive previous surgery. 2. Congestive heart failure, systolic. 3. Status post defibrillator replacement. 4. Severe cardiac cirrhosis. 5. Chronic thrombocytopenia. PLAN: The patient was evaluated by Dr. Samuels. The patient is for any procedure. We will speak to Dr. Guevara if he is comfortable doing endoscopy, colonoscopy. While we are making decision, I will advance her diet and see her response. Continue her on metronidazole for now. Continue to monitor her electrolytes. Her Coumadin is on hold until we decide that she is going for endoscopy and colonoscopy. Olvin Dejesus MD
--- NOTE | 2018-10-10 18:00 | CARD ---
APPROVED REPORT Date of service: 10/10/2018 EXAM: Two-dimensional and M-mode echocardiogram with Doppler and color Doppler. INDICATION Congestive Heart Failure 2D DIMENSIONS Left Atrium (2D)3.5 (1.6-4.0cm)IVSd1.1 (0.7-1.1cm) LVDd4.6 (3.9-5.9cm)PWd1.1 (0.7-1.1cm) LVDs3.9 (2.5-4.0cm)FS (%) 15.0 % LVEF (%)31.0 (>50%) M-Mode DIMENSIONS Aortic Root2.80 (2.2-3.7cm)Aortic Cusp Exc.1.80 (1.5-2.0cm) Aortic Valve AoV Peak Ohqocfig455.0cm/Jacob Peak GR.9mmHg Mitral Valve E/A ratio0.0 TDI E/Lateral E'0.0E/Medial E'0.0 Tricuspid Valve TR Peak [id number] [id number] Peak Gr.27mmHg [id number] LEFT VENTRICLE The left ventricle is normal size. There is normal left ventricular wall thickness. The systolic function is moderately to severely impaired. There is global hypokinesis of the left ventricle. RIGHT VENTRICLE The right ventricle is normal size. There is an ICD lead in the right ventricle. ATRIA The left atrium size is normal. The right atrium size is normal. The interatrial septum is intact with no evidence for an atrial septal defect. AORTIC VALVE The aortic valve is mildly sclerotic. No aortic regurgitation is present. There is no aortic valvular stenosis. MITRAL VALVE There is some calcification of the subvalvular apparatus. Mitral regurgitation is mild. TRICUSPID VALVE The tricuspid valve is normal in structure. There is mild tricuspid regurgitation. PULMONIC VALVE The pulmonary valve is normal in structure. GREAT VESSELS The aortic root is normal in size. The IVC is normal in size and collapses >50% with inspiration. PERICARDIAL EFFUSION There is no pleural effusion. There is no pericardial effusion. <Conclusion> Normal chamber size. Moderately severe global LV hypokinesis. Mild mitral regurgitation. Mild tricuspid regurgitation. ICD lead noted in the RV.
[2018-10-11] MEDS: metroNIDAZOLE IV 500 mg/100 ml 500 MG/100 ML BAG IVPB SCH (05:30)
[2018-10-11 07:15] LABS: INR 2.32; PROTHROMBIN TIME 26.2 SECONDS (9.4-12.5)
[2018-10-11] MEDS: Insulin Lispro (humaLOG) MEDIUM Coverage SC SCH ×4 (07:28→21:45)
[2018-10-11] MEDS: Metoprolol Succinate 50 mg XL Tab PO SCH (08:17)
--- NOTE | 2018-10-11 08:39 | PN ---
DATE: 10/11/2018 SUBJECTIVE: The patient is seen lying in bed on telemetry. She is comfortable at present time. She is tolerating small amount of solid food. She awaits plans for an endoscopy. A defibrillator interrogation was performed yesterday. This has not been checked in over 5 years. She did have one episode of ventricular tachycardia that terminated by antitachycardia pacing in 2014. The battery life remains approximately 2-1/2 years. The rest of function is normal. CURRENT MEDICATIONS: Include lactulose, insulin, morphine p.r.n., Protonix, Prozac, Rocephin, Toprol-XL 50 mg b.i.d. and Zofran. OBJECTIVE: GENERAL: She is a middle-aged woman was comfortable at present time. VITAL SIGNS: Blood pressure 116/70 with pulse of 86 in atrial fibrillation, respirations are 14. She is afebrile. HEENT: No JVD. CHEST: Few scattered rhonchi heard. HEART: PMI displaced laterally with soft tones noted. ABDOMEN: Soft with mild diffuse tenderness. Bowel sounds present. EXTREMITIES: No edema. DIAGNOSTICS DATA: INR is 2.32. IMPRESSION: 1. Resolving small bowel obstruction, clinically improved. 2. Chronic congestive heart failure, systolic compensated at present time. 3. History of ventricular dysfunction. 4. Chronic thrombocytopenia felt secondary to cardiac cirrhosis. 5. Status post implantable cardioverter-defibrillator implant. RECOMMENDATIONS: The current cardiac management should continue for now. Metoprolol can be switched to 100 mg once daily dosing. She is currently on the long-acting form. Outpatient ICD followup will be arranged. Continue cardiac followup as an outpatient be arranged as well. From a cardiac standpoint, she appears stable and compensated for any endoscopic procedure and stable for discharge once cleared by Surgery and GI as well. Farhan Martinez MD
--- NOTE | 2018-10-11 09:10 | US ---
Date of service: 10/10/2018 HISTORY: ascitis,pelvis mass COMPARISON: None available. TECHNIQUE: Transabdominal pelvic ultrasound was performed with longitudinal and transverse images submitted for interpretation. FINDINGS: Due to tenderness at the lower abdomen and pelvis, ultrasonography of the pelvis is quite limited and in fact demonstrates only moderate ascites partially surrounding bowel as defined in pelvis portion of abdomen pelvis CT 10/07/2018. The uterus and adnexal compartments are not captured in this exam due to the difficulty in capturing the pelvic organs due to overlying distended bowel and inability to compress transducer on the a abdominal and pelvic wall whatsoever with this patient due to pain. OTHER FINDINGS: None. IMPRESSION: Limited ultrasound of the pelvis fails to identify the pelvis and bilateral necks compartments due to pain in overlying bowel. Moderate ascites is identified in the pelvis confirming CT appearance. Left adnexal cyst identified by CT 10/07/2018 is not identified on the current transabdominal pelvic ultrasound.
[2018-10-11] MEDS: Metoprolol Succinate 100 mg XL Tab PO SCH (09:18)
[2018-10-11] MEDS: cefTRIAXone 1 gm 1 GM/100 ML BAG IVPB SCH (09:19)
--- NOTE | 2018-10-11 10:59 | CP.PCM.PCO ---
Physician Communication Note - Physician Communication Note Physician Communication Note: + E Coli UTI/EGD Today
--- NOTE | 2018-10-11 11:14 | CP.PCM.PN ---
<MiguelAsher - Last Filed: 10/11/18 11:15> Subjective - Date & Time of Evaluation Date of Evaluation: 10/11/18 Time of Evaluation: 11:11 - Subjective Subjective: Asher Rivera- Internal Medicine Resident- Progress Note on Behalf of Dr. Guevara Subjective: Patient seen and examined at [facility]. No acute overnight events. States abdominal pain has improved relative to baseline. Admits to tolerating diet. Denies n/v, diarrhea, and constipation. 12 point ROS negative except as indicated in the HPI Physical Examination: - Constitutional Appears: Non-toxic, No Acute Distress - Head Exam Head Exam: ATRAUMATIC, NORMAL INSPECTION, NORMOCEPHALIC - Eye Exam Eye Exam: EOMI, Normal appearance, PERRL - ENT Exam ENT Exam: Mucous Membranes Moist, Normal Exam - Neck Exam Neck exam: Positive for: Normal Inspection - Respiratory Exam Respiratory Exam: Clear to Auscultation Bilateral, NORMAL BREATHING PATTERN - Cardiovascular Exam Cardiovascular Exam: REGULAR RHYTHM, RRR, +S1, +S2 - GI/Abdominal Exam GI & Abdominal Exam: Distended, Normal Bowel Sounds, Soft. absent: Firm, Guarding, Tenderness - Rectal Exam Rectal Exam: Deferred - Extremities Exam Extremities exam: Positive for: full ROM, normal inspection - Neurological Exam Neurological exam: Alert, Oriented x3 - Skin Skin Exam: Dry, Intact, Normal Color, Warm Assessment and Plan: 73yF with a pmhx of A-fibrillation, DM, Cirrhosis, CHF, Thrombocytopenia who was admitted for evaluation and treatment of abdominal pain. Abdominal pain is ass ociated with nausea vomiting, and also diarrhea. 1. Abdominal pain, N/V- ascending colitis 2. Cyptogenic Cirrhosis 3. Afib on OAC 4. Ascites - 10/08/2018 CT Abdomen and Pelvis with contrast- Distal small bowel obstruction. Under filling of the stomach accentuating gastric wall thickening. Gastritis should be considered. Colitis limited to the ascending colon. Small volume abdominal pelvic ascites. Stable left adnexal cyst. Stable pneumobilia. - 10/08/2018 Abdominal US duplex- official read pending - endoscopic evaluation today - R/O esophageal varices or changes of portal hypertension; gastritis or PUD - Hep Panel reviewed- negative - C diff assay reviewed- negative - Ammonia elevated- 64 - Continue lactulose - Recommend diagnostic paracentesis to determine etiology - Recommend autoimmune work up pending findings - AXEL, AMA, SMA, IgG - Recommend cardiac evaluation for possible EGD - Continue with clear liquid diet Patient seen, case discussed with, and plan approved by attending physician, Dr. Guevara. Objective - Vital Signs/Intake and Output Vital Signs (last 24 hours): Temp Pulse Resp BP Pulse Ox 97.8 F 85 18 116/71 98 10/10/18 08:51 10/10/18 17:43 10/10/18 08:51 10/10/18 17:43 10/10/18 08:51 Intake and Output: 10/11/18 10/11/18 06:59 18:59 Intake Total 920 Balance 920 - Medications Medications: Current Medications Fluoxetine HCl (Prozac) 10 mg PO DAILY [facility] Last Admin: 10/11/18 09:18 Dose: 10 mg Insulin Human Lispro (Humalog Med) 0 units SC ACHS [facility]; Protocol Last Admin: 10/11/18 07:28 Dose: Not Given Lactulose (Enulose) 10 gm PO HS [facility] Last Admin: 10/10/18 21:48 Dose: 10 gm Metoprolol Succinate (Toprol Xl) 100 mg PO BRK [facility] Last Admin: 10/11/18 09:18 Dose: 100 mg Morphine Sulfate (Morphine) 1 mg IVP Q4H PRN PRN Reason: Pain, severe (8-10) Last Admin: 10/08/18 21:03 Dose: 1 mg Ondansetron HCl (Zofran Inj) 4 mg IVP Q6H PRN PRN Reason: Nausea/Vomiting Pantoprazole Sodium (Protonix Inj) 40 mg IVP DAILY [facility] Last Admin: 10/11/18 09:19 Dose: 40 mg Tramadol/Acetaminophen (Ultracet 37.5/325 Mg) 1 tab PO Q6H PRN PRN Reason: Pain, moderate (4-7) - Labs Labs: 10/09/18 06:00 10/09/18 06:00 PT 26.2 SECONDS (9.4-12.5) H 10/11/18 06:45 INR 2.32 10/11/18 06:45 APTT 52.9 Seconds (26.9-38.3) H 10/07/18 17:15 <Mariposa Guevara V - Last Filed: 10/11/18 20:44> Objective - Vital Signs/Intake and Output Vital Signs (last 24 hours): Temp Pulse Resp BP Pulse Ox 97.4 F L 83 16 104/50 L 98 10/11/18 17:05 10/11/18 17:05 10/11/18 17:05 10/11/18 17:05 10/11/18 17:05 - Medications Medications: Current Medications Fluoxetine HCl (Prozac) 10 mg PO DAILY [facility] Last Admin: 10/11/18 09:18 Dose: 10 mg Insulin Human Lispro (Humalog Med) 0 units SC ACHS [facility]; Protocol Last Admin: 10/11/18 17:23 Dose: Not Given Lactulose (Enulose) 10 gm PO HS [facility] Last Admin: 10/10/18 21:48 Dose: 10 gm Metoprolol Succinate (Toprol Xl) 100 mg PO BRK [facility] Last Admin: 10/11/18 09:18 Dose: 100 mg Morphine Sulfate (Morphine) 1 mg IVP Q4H PRN PRN Reason: Pain, severe (8-10) Last Admin: 10/08/18 21:03 Dose: 1 mg Nadolol (Corgard) 20 mg PO DAILY [facility] Ondansetron HCl (Zofran Inj) 4 mg IVP Q6H PRN PRN Reason: Nausea/Vomiting Pantoprazole Sodium (Protonix Inj) 40 mg IVP DAILY [facility] Last Admin: 10/11/18 09:19 Dose: 40 mg Tramadol/Acetaminophen (Ultracet 37.5/325 Mg) 1 tab PO Q6H PRN PRN Reason: Pain, moderate (4-7) - Labs Labs: 10/11/18 11:45 10/11/18 11:45 PT 26.2 SECONDS (9.4-12.5) H 10/11/18 06:45 INR 2.32 10/11/18 06:45 APTT 52.9 Seconds (26.9-38.3) H 10/07/18 17:15 Attending/Attestation - Attestation I have personally seen and examined this patient.: Yes I have fully participated in the care of the patient.: Yes I have reviewed all pertinent clinical information, including history, physical exam and plan: Yes Notes (Text): This is an addendum to the GI Progress report dictated by the resident. The patient was seen and evaluated earlier today. Scheduled for an EGD which was done later. Patient does have mild elevated ammonia level. Patient has been on Xifaxan. Status post EGD grade 1 esophageal varices portal gastropathy noticed. Patient was also found to have reduced a gastric motility suggestive of gastroparesis. Patient would benefit from a soft diet to well or pured diet. Nonselective beta-blockers. 10/11/18 20:42
[2018-10-11] MEDS ORDERED: Sodium Chloride 0.45% 1,000 ML IV SCH (11:30)
[2018-10-11 11:56] LABS: MEAN CELL VOLUME 81.8 fl (80.0-105.0); MEAN CORPUSCULAR HEMOGLOBIN 25.9 pg (25.0-35.0); MEAN CORPUSCULAR HGB CONC 31.7 g/dl (31.0-37.0); PLATELET COUNT 60 10^3/uL (120.0-450.0); RBC 3.47 10^6/uL (3.5-6.1); RED CELL DISTRIBUTION WIDTH 17.6 % (11.5-14.5); WHITE BLOOD COUNT 3.8 10^3/uL (4.5-11.0)
[2018-10-11 12:03] LABS: ALB/GLOB RATIO 0.9 (1.1-1.8); ALBUMIN 2.7 g/dL (3.0-4.8); ALT/SGPT 25 U/L (7-56); AST/SGOT 28 U/L (14-36); BLOOD UREA NITROGEN 12 mg/dL (7-21); CALCIUM 8.7 mg/dL (8.4-10.5); GFR NON-AFRICAN AMERICAN > 60
[2018-10-11] MEDS ORDERED: Midazolam 2 MG/2 ML VIAL ONE (16:03)
[2018-10-11] MEDS ORDERED: Etomidate 20 mg/10ml Inj IV ONE (16:03)
--- NOTE | 2018-10-11 16:13 | PN ---
DATE: 10/11/2018 PULMONARY PROGRESS NOTE SUBJECTIVE: The patient was seen and examined at the bedside. She states she feels better and less short of breath. PHYSICAL EXAMINATION: VITAL SIGNS: Temperature is 98.4, pulse oximetry is 98 on room air and blood pressure 116/71. HEAD, EARS, NOSE AND THROAT: Within normal limits. NECK: Supple. There is no jugular vein distentions. CARDIOVASCULAR: S1 and S2. No S3, regular. PULMONARY: Diminished breath sounds at both lung bases with few rhonchi. No wheezing. GASTROINTESTINAL: Soft and nontender. No organomegaly. EXTREMITIES: No pedal edema. No cyanosis. NEUROLOGIC: No focal deficits. SKIN: No acute skin rash. LABORATORY DATA: I reviewed today's blood work, her WBC's are 3.8 and hemoglobin of 9.0. ASSESSMENT AND PLAN: 1. Resolving small bowel obstruction. 2. Chronic congestive heart failure. 3. Chronic obstructive pulmonary disease. 4. Low ejection fraction. Pulmonary status is stable. She is stable for discharge if okay with Surgery and gastrointestinal. Thomas Martell MD [facility]
[2018-10-11] MEDS ORDERED: Sodium Chloride 0.9% 1,000 ML IV SCH (16:30)
--- NOTE | 2018-10-11 17:26 | CP.PCM.PCO ---
Physician Communication Note - Physician Communication Note Physician Communication Note: s/p EGD-Grade 1 Esoph Varices, portal gastropathy,PT rec TCU,eval pending
--- NOTE | 2018-10-12 00:10 | PN ---
DATE: 10/11/2018 SUBJECTIVE: The patient is a 73-year-old seen and examined today in chair, seems to be comfortable, n.p.o. for her endoscopy later on today. No nausea or vomiting. No diarrhea. PHYSICAL EXAMINATION: VITAL SIGNS: She is afebrile, pulse 83, respirations 16, blood pressure 104/50. LUNGS: Bilateral fair airflow. No rhonchi or crackle. HEART: S1, S2 audible. ABDOMEN: Soft, nontender. No rebound, no guarding; however, she has reducible ventral hernia. NEUROLOGIC: She is awake and alert, able to communicate. LABORATORY DATA: WBC 3.8, hemoglobin 9, hematocrit 28.4, platelets 60, PT 26.2, INR 2.32. Chemistry: Sodium 135, potassium 4.2, chloride 104, CO2 of 28, BUN 12, creatinine 0.7, blood sugar of 115. ASSESSMENT: 1. Abdominal pain, multifactorial. 2. Ventral hernia. 3. Cardiac cirrhosis. 4. Chronic atrial fibrillation. 5. . 6. Status post pacemaker placement. 7. Moderately severe global left ventricular hypokinesia. 8. Insulin-dependent diabetes. PLAN: The patient is going for endoscopy today, found to have esophageal varices and gastropathy. We will discontinue IV fluid, continue on Protonix. She is on metoprolol. She is on tramadol. Blood sugar is being monitored. I will start the patient on nadolol. We will discuss with Dr. Guevara for further workup. If we have to do colonoscopy while she is here since she has never gotten GI workup and she keeps on getting admitted with intermittent abdominal pain. Olvin Dejesus MD
[2018-10-12] MEDS: Morphine 2 mg/ml ISec IVP PRN (00:19)
[2018-10-12] MEDS: Insulin Lispro (humaLOG) MEDIUM Coverage SC SCH ×3 (09:16→17:08)
[2018-10-12] MEDS: Metoprolol Succinate 100 mg XL Tab PO SCH (09:17)
--- NOTE | 2018-10-12 09:25 | CP.PCM.PN ---
<MiguelAsher - Last Filed: 10/12/18 11:09> Subjective - Date & Time of Evaluation Date of Evaluation: 10/12/18 Time of Evaluation: 09:20 - Subjective Subjective: Asher Rivera- Internal Medicine Resident- Progress Note on Behalf of Dr. Guevara Subjective: Patient seen and examined at bedside. No acute overnight events. States abdominal pain has resolved. Positive appetite. Admits to tolerating diet. D enies n/v, diarrhea, and constipation. 12 point ROS negative except as indicated in the HPI Physical Examination: - Constitutional Appears: Non-toxic, No Acute Distress - Head Exam Head Exam: ATRAUMATIC, NORMAL INSPECTION, NORMOCEPHALIC - Eye Exam Eye Exam: EOMI, Normal appearance, PERRL - ENT Exam ENT Exam: Mucous Membranes Moist, Normal Exam - Neck Exam Neck exam: Positive for: Normal Inspection - Respiratory Exam Respiratory Exam: Clear to Auscultation Bilateral, NORMAL BREATHING PATTERN - Cardiovascular Exam Cardiovascular Exam: REGULAR RHYTHM, RRR, +S1, +S2 - GI/Abdominal Exam GI & Abdominal Exam: Distended, Normal Bowel Sounds, Soft. absent: Firm, Guarding, Tenderness - Rectal Exam Rectal Exam: Deferred - Extremities Exam Extremities exam: Positive for: full ROM, normal inspection - Neurological Exam Neurological exam: Alert, Oriented x3 - Skin Skin Exam: Dry, Intact, Normal Color, Warm Assessment and Plan: 73yF with a pmhx of A-fibrillation, DM, Cirrhosis, CHF, Thrombocytopenia who was admitted for evaluation and treatment of abdominal pain. Abdominal pain is assoc iated with nausea vomiting, and also diarrhea. 1. Abdominal pain, N/V- ascending colitis 2. Cyptogenic Cirrhosis 3. Afib on OAC 4. Ascites - 10/08/2018 CT Abdomen and Pelvis with contrast- Distal small bowel obstruction. Under filling of the stomach accentuating gastric wall thickening. Gastritis should be considered. Colitis limited to the ascending colon. Small volume abdominal pelvic ascites. Stable left adnexal cyst. Stable pneumobilia. - 10/08/2018 Abdominal US duplex- official read pending - endoscopic evaluation revealed grade 1 esophageal varices portal gastropathy- recommend nonselective beta-blockers., reduced gastric motility suggestive of gastroparesis - continue diabetic diet - Hep Panel reviewed- negative - C diff assay reviewed- negative - Ammonia elevated- continue lactulose - Recommend diagnostic paracentesis to determine etiology - Recommend autoimmune work up pending findings - AXEL, AMA, SMA, IgG - Recommend egd in 1 year Patient seen, case discussed with, and plan approved by attending physician, Dr. Guevara. Objective - Vital Signs/Intake and Output Vital Signs (last 24 hours): Temp Pulse Resp BP Pulse Ox 97.9 F 75 18 118/60 97 10/11/18 23:57 10/12/18 09:17 10/11/18 23:57 10/12/18 09:17 10/11/18 23:57 Intake and Output: 10/12/18 10/12/18 06:59 18:59 Intake Total 600 Output Total 2 Balance 598 - Medications Medications: Current Medications Fluoxetine HCl (Prozac) 10 mg PO DAILY [facility] Last Admin: 10/12/18 09:17 Dose: 10 mg Insulin Human Lispro (Humalog Med) 0 units SC ACHS [facility]; Protocol Last Admin: 10/12/18 09:16 Dose: Not Given Lactulose (Enulose) 10 gm PO HS [facility] Last Admin: 10/11/18 21:43 Dose: 10 gm Metoprolol Succinate (Toprol Xl) 100 mg PO BRK [facility] Last Admin: 10/12/18 09:17 Dose: 100 mg Morphine Sulfate (Morphine) 1 mg IVP Q4H PRN PRN Reason: Pain, severe (8-10) Last Admin: 10/12/18 00:19 Dose: 1 mg Nadolol (Corgard) 20 mg PO DAILY [facility] Ondansetron HCl (Zofran Inj) 4 mg IVP Q6H PRN PRN Reason: Nausea/Vomiting Pantoprazole Sodium (Protonix Inj) 40 mg IVP DAILY [facility] Last Admin: 10/12/18 09:16 Dose: 40 mg Tramadol/Acetaminophen (Ultracet 37.5/325 Mg) 1 tab PO Q6H PRN PRN Reason: Pain, moderate (4-7) - Labs Labs: 10/11/18 11:45 10/11/18 11:45 PT 26.2 SECONDS (9.4-12.5) H 10/11/18 06:45 INR 2.32 10/11/18 06:45 APTT 52.9 Seconds (26.9-38.3) H 10/07/18 17:15 <Mariposa Guevara V - Last Filed: 10/12/18 22:03> Objective - Vital Signs/Intake and Output Vital Signs (last 24 hours): Temp Pulse Resp BP Pulse Ox 97.9 F 78 19 100/56 L 99 10/12/18 17:25 10/12/18 17:25 10/12/18 17:25 10/12/18 17:25 10/12/18 17:25 - Labs Labs: 10/11/18 11:45 10/11/18 11:45 PT 26.2 SECONDS (9.4-12.5) H 10/11/18 06:45 INR 2.32 10/11/18 06:45 APTT 52.9 Seconds (26.9-38.3) H 10/07/18 17:15 Attending/Attestation - Attestation I have personally seen and examined this patient.: Yes I have fully participated in the care of the patient.: Yes I have reviewed all pertinent clinical information, including history, physical exam and plan: Yes Notes (Text): The patient was feeling not much. Tolerating the diet. Better now this is an addendum to the GI progress report dictated by the fellow. The patient was seen and evaluated along with the GI fellow. Patient had endoscopy done findings were as described above. Patient mentioned that her abdominal symptoms has nearly disappeared. 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 Patient has hepatic encephalopathy with elevated ammonia level would benefit from Xifaxan 550 mg p.o. twice daily instead of lactulose as it causes less electrolyte derangement in this patient with a significant cardiac disease Patient has cardiomyopathy and cirrhosis we need to rule out hemochromatosis in this patient 10/12/18 21:57
--- NOTE | 2018-10-12 16:58 | CP.PCM.PCO ---
Additional Comments - Additional Comments Additional Comments: Pt. seen earlier this am, s/p egd revealed grade 1 Varices, and gastropathy, tolerated diet well, no nausea , no vomiting. Denied palpitations, denied shortness of breath. Pt. rec.TCU, tcU accepted for pT, cleared by GI, PMD for D C to TCU.
[2018-10-12 17:26] VITALS: BP 100/56; PULSE 78; RESP 19; TEMP 97.9; O2SAT 99
--- NOTE | 2018-10-13 06:31 | DS ---
HISTORY OF PRESENT ILLNESS: The patient is a 73-year-old, seen and examined, doing a lot better. Abdominal pain has almost gone. PHYSICAL EXAMINATION: VITAL SIGNS: She is afebrile, pulse 78, respirations 19, and blood pressure 100/56. LUNGS: Bilateral fair airflow. Decreased at the bases. HEART: S1 and S2 audible, , rate controlled. ABDOMEN: Soft, obese, and nontender. No rebound. No guarding. NEUROLOGIC: She is awake and alert, able to communicate. EXTREMITIES: Bilateral legs, no edema. LABORATORY EXAMINATION: WBC of 3.8, hemoglobin 9, hematocrit 28.4, and platelets 60. PT of 26.2 and INR of 2.32. Chemistries; sodium 135, potassium 4.2, chloride 104, CO2 of 27, BUN of 12, creatinine 0.7, and blood sugar of 179. Hepatitis profile is negative. Urine shows E. coli. Endoscopy shows esophageal varices and gastroparesis. ASSESSMENT AND PLAN: She is on Protonix and Prozac. She has been started on nadolol. Discussed with Dr. Guevara. The patient responded very well to IV antibiotics. The patient seems to be stable, at this point can be transferred to rehab to TCU and she can have colonoscopy done as an outpatient. Discussed with Dr. Guevara. We will follow up in a.m. Olvin Dejesus MD
== END 2018-10-12 18:48 | DRG 389 ==
LOC: ED 17:00 → ERH 21:50 → 3RSO 22:45
PROVIDERS: ADMIT Internal Medicine; ATTEND Internal Medicine
PROC: 0DJ08ZZ Inspection of Upper Intestinal Tract, Via Natural or Artificial Opening Endoscopic (ICD-10-PCS; principal; 2018-10-11 14:30)
DX: K56.690 Other partial intestinal obstruction (principal); R18.8 Other ascites; K76.6 Portal hypertension; I42.0 Dilated cardiomyopathy; I50.22 Chronic systolic (congestive) heart failure; N39.0 Urinary tract infection, site not specified; I85.00 Esophageal varices without bleeding; K52.9 Noninfective gastroenteritis and colitis, unspecified; K29.70 Gastritis, unspecified, without bleeding; D69.6 Thrombocytopenia, unspecified; I48.2 Chronic atrial fibrillation; R59.0 Localized enlarged lymph nodes; I11.0 Hypertensive heart disease with heart failure; I25.10 Atherosclerotic heart disease of native coronary artery without angina pectoris; K21.9 Gastro-esophageal reflux disease without esophagitis; B96.20 Unspecified Escherichia coli [E. coli] as the cause of diseases classified elsewhere; I27.20 Pulmonary hypertension, unspecified; K31.89 Other diseases of stomach and duodenum; K74.69 Other cirrhosis of liver; R10.84 Generalized abdominal pain; J44.9 Chronic obstructive pulmonary disease, unspecified; K43.9 Ventral hernia without obstruction or gangrene; K72.90 Hepatic failure, unspecified without coma; Z79.01 Long term (current) use of anticoagulants; Z79.4 Long term (current) use of insulin; E11.40 Type 2 diabetes mellitus with diabetic neuropathy, unspecified; K31.84 Gastroparesis; Z79.899 Other long term (current) drug therapy; Z87.01 Personal history of pneumonia (recurrent); Z87.440 Personal history of urinary (tract) infections; Z90.49 Acquired absence of other specified parts of digestive tract; Z95.0 Presence of cardiac pacemaker; Z91.013 Allergy to seafood; Z91.018 Allergy to other foods

== ENCOUNTER 2018-10-12 18:51 | Inpatient (IN) | payer OTHER ==
[2018-10-12] MEDS ORDERED: Morphine 2 mg/ml ISec IVP PRN (19:56)
[2018-10-12] MEDS ORDERED: TraMADol/Apap 37.5/325 mg Tab PO PRN (19:56)
[2018-10-12] MEDS: Insulin Lispro (humaLOG) MEDIUM Coverage SC SCH ×2 (21:59→22:08)
[2018-10-13] MEDS: Insulin Lispro (humaLOG) MEDIUM Coverage SC SCH ×4 (06:35→21:44)
--- NOTE | 2018-10-13 07:48 | CP.PCM.PCO ---
Physician Communication Note - Physician Communication Note Physician Communication Note: no surg intervention. advanc diet as tolerated
[2018-10-13] MEDS: Digoxin 250 mcg (0.25 mg) Tab PO SCH (13:52)
--- NOTE | 2018-10-13 15:23 | CP.PCM.PN ---
<Lemuel Barr - Last Filed: 10/13/18 15:53> Subjective - Date & Time of Evaluation Date of Evaluation: 10/13/18 Time of Evaluation: 12:50 - Subjective Subjective: PGY6 GI Fellow Progress Note Patient seen and examined bedside this morning with the medical manager and again this afternoon in TCU with Dr Guevara. The patient states she is feeling well today. During examination she is seen eating a plate of fish without issue or discomfort. She is answering all questions appropriately and does not admit to any issues at this time. 12 system ROS performed and negative except where stated Objective - Vital Signs/Intake and Output Vital Signs (last 24 hours): Temp Pulse Resp BP Pulse Ox 98 F 79 20 110/62 10/12/18 22:54 10/12/18 22:54 10/12/18 22:54 10/13/18 10:11 - Medications Medications: Current Medications Aspirin (Ecotrin) 81 mg PO 0800 [facility] Atorvastatin Calcium (Lipitor) 10 mg PO DIN [facility] Ciprofloxacin (Cipro) 500 mg PO Q12 [facility]; Protocol Stop: 10/14/18 14:16 Digoxin (Lanoxin) 0.25 mg PO 1400 [facility] Last Admin: 10/13/18 13:52 Dose: 0.25 mg Fluoxetine HCl (Prozac) 10 mg PO DAILY [facility]; Protocol Last Admin: 10/13/18 10:11 Dose: 10 mg Insulin Human Lispro (Humalog Med) 0 units SC ACHS [facility]; Protocol Last Admin: 10/13/18 13:54 Dose: 1 unit Lactulose (Enulose) 10 gm PO HS [facility]; Protocol Losartan Potassium (Cozaar) 100 mg PO DAILY [facility] Last Admin: 10/13/18 13:52 Dose: Not Given Metronidazole (Flagyl) 500 mg PO Q8 [facility]; Protocol Morphine Sulfate (Morphine) 1 mg IVP Q4H PRN; Protocol PRN Reason: Pain, severe (8-10) Nadolol (Corgard) 20 mg PO DAILY [facility]; Protocol Last Admin: 10/13/18 10:11 Dose: 20 mg Ondansetron HCl (Zofran Inj) 4 mg IVP Q6H PRN; Protocol PRN Reason: Nausea/Vomiting Pantoprazole Sodium (Protonix Ec Tab) 40 mg PO 0600 [facility]; Protocol Tramadol/Acetaminophen (Ultracet 37.5/325 Mg) 1 tab PO Q6H PRN; Protocol PRN Reason: Pain, moderate (4-7) Last Admin: 10/13/18 10:13 Dose: 1 tab Warfarin Sodium (Coumadin) 5 mg PO 1800 [facility]; Protocol - Constitutional Appears: Non-toxic, No Acute Distress - Eye Exam Eye Exam: EOMI, PERRL. absent: Scleral icterus - ENT Exam ENT Exam: Mucous Membranes Moist - Respiratory Exam Respiratory Exam: Decreased Breath Sounds (bases). absent: Rales, Rhonchi, Wheezes - Cardiovascular Exam Cardiovascular Exam: Irregular Rhythm, +S1, +S2 - GI/Abdominal Exam GI & Abdominal Exam: Soft, Normal Bowel Sounds. absent: Distended, Firm, Guarding, Rigid, Tenderness, Organomegaly Additional comments: midline scar - Extremities Exam Extremities Exam: Normal Inspection. absent: Pedal Edema - Neurological Exam Neurological Exam: Alert, Awake, Oriented x3 - Psychiatric Exam Psychiatric exam: Normal Affect, Normal Mood - Skin Skin Exam: Dry, Warm Assessment and Plan - Assessment and Plan (Free Text) Assessment: Patient is a 73yo female with PMHx significant for atrial fibrillation, diabetes and cryptogenic cirrhosis who presented with complaint of abdominal pain -Cryptogenic cirrhosis c/b ascites -Ascending colitis, resolving -Atrial fibrillation on OAC -Questionable small bowel obstruction - resolved Plan: The patient's son and niece are at bedside today. The patient's son is upset that a colonoscopy was not performed on his mother yesterday. -We attempted to calmly explain our medical rationale in both scientific and lay terms, so both the patient and son understand as to why a colonoscopy was not recommended at this time. -We explained that in completely healthy patients, the risks of screening colonoscopy include gastrointestinal perforation, gastrointestinal bleeding and infection. -We explained that a colonoscopy to terminal ileum would not necessarily assist in understanding pathology underlying question of small bowel obstruction as this test does not provide visualization of these areas noted on CT scan; explained that this issue can likely be attributed to prior extensive abdominal surgical interventions and adhesions -We explained that these risks would be elevated given her recent/ongoing but resolving ascending colitis, coagulopathy with INR of 2.32 (10/11/18) and thrombocytopenia of 60K (10/11/18) and that the latter two would prohibit biopsy or resection of any lesions encountered further limiting the utility of such a study -We explained that a diagnostic endoscopy was performed without any plan for biopsy to evaluate for the presence of varices to risk stratify in a patient who may require oral anticoagulation -Throughout attempts to explain this to the patient's son, he became more upset and began yelling and cursing at myself and Dr Guevara -Though I can appreciate the patient's family's frustrations regarding her illness and comorbid conditions, this does not supersede the believe that the risks of performing colonoscopy a this juncture outweight the benefits -Family is requesting a second gastroenterology opinion, thus Dr Curiel has been consulted at this time -Our final recommendations have been communicated to TCU staff, Dr Dejesus and the patient's family and include: -Oral Cipro/Flagyl for total of 10-14 days for recent episode of ascending colitis -Outpatient colonoscopy in 6-8 weeks once acute event has resolved and risk of perforation has returned to ~1% as well as patient's coagulopathy/thrombocytopenia has been addressed -Continued Lactulose 10g PO QHS with dose titrated to 2-3BM/day -Beta adelfo therapy titrated to HR for grade I esophageal varices -Consideration for repeat endoscopy in one year for variceal surveillance if she cannot tolerate BB alone <Mariposa Guevara V - Last Filed: 10/14/18 01:17> Objective - Vital Signs/Intake and Output Vital Signs (last 24 hours): Temp Pulse Resp BP Pulse Ox 97.7 F 78 14 110/62 100 10/13/18 10:00 10/13/18 10:00 10/13/18 10:00 10/13/18 10:11 10/13/18 10:00 - Medications Medications: Current Medications Aspirin (Ecotrin) 81 mg PO 0800 [facility] Atorvastatin Calcium (Lipitor) 10 mg PO DIN [facility] Last Admin: 10/13/18 17:41 Dose: 10 mg Ciprofloxacin (Cipro) 500 mg PO Q12 [facility]; Protocol Stop: 10/14/18 14:16 Last Admin: 10/13/18 21:49 Dose: 500 mg Digoxin (Lanoxin) 0.25 mg PO 1400 [facility] Last Admin: 10/13/18 13:52 Dose: 0.25 mg Fluoxetine HCl (Prozac) 10 mg PO DAILY [facility]; Protocol Last Admin: 10/13/18 10:11 Dose: 10 mg Insulin Human Lispro (Humalog Med) 0 units SC ACHS [facility]; Protocol Last Admin: 10/13/18 21:44 Dose: Not Given Lactulose (Enulose) 10 gm PO HS [facility]; Protocol Last Admin: 10/13/18 21:50 Dose: 10 gm Losartan Potassium (Cozaar) 100 mg PO DAILY [facility] Last Admin: 10/13/18 13:52 Dose: Not Given Metronidazole (Flagyl) 500 mg PO Q8 [facility]; Protocol Last Admin: 10/13/18 21:49 Dose: 500 mg Morphine Sulfate (Morphine) 1 mg IVP Q4H PRN; Protocol PRN Reason: Pain, severe (8-10) Nadolol (Corgard) 20 mg PO DAILY [facility]; Protocol Last Admin: 10/13/18 10:11 Dose: 20 mg Ondansetron HCl (Zofran Inj) 4 mg IVP Q6H PRN; Protocol PRN Reason: Nausea/Vomiting Pantoprazole Sodium (Protonix Ec Tab) 40 mg PO 0600 [facility]; Protocol Tramadol/Acetaminophen (Ultracet 37.5/325 Mg) 1 tab PO Q6H PRN; Protocol PRN Reason: Pain, moderate (4-7) Last Admin: 10/13/18 10:13 Dose: 1 tab Warfarin Sodium (Coumadin) 5 mg PO 1800 [facility]; Protocol Last Admin: 10/13/18 17:41 Dose: 5 mg Attending/Attestation - Attestation I have personally seen and examined this patient.: Yes I have fully participated in the care of the patient.: Yes I have reviewed all pertinent clinical information, including history, physical exam and plan: Yes Notes (Text): This is an addendum to the GI progress note dictated by the fellow. I did discuss with the patient, patient's son and the family members who were at bedside. Risk of colonoscopy in this patient with a colitis as in the elevated INR and thrombocytopenia outweighs the benefits. We tried to explain multiple times patient's son was upset, cursed me and the GI fellow. He demanded colonoscopy to be performed. Requested second opinion consult. We will sign off from the case I did discuss with the Dr. Dejesus. 10/14/18 01:11
--- NOTE | 2018-10-13 18:42 | HP ---
DATE OF EXAM: 10/13/2018 HISTORY OF PRESENT ILLNESS: The patient is a 73-year-old who came to emergency room because of abdominal pain. She was nauseous. She had no appetite. She had a CT scan of the abdomen and pelvis done that shows distal small bowel obstruction and colitis limited to ascending colon. The patient was initially kept on p.o. and was given IV fluid, blood sugar was closely monitored. GI consult was done. The patient underwent endoscopy and was found to have esophageal varices along with gastroparesis. She was also given Flagyl and Rocephin to cover for SBP since she has cirrhosis of the liver, probably cardiac cirrhosis. She responded very well, started to eat and tolerate, sent to TCU for rehab. PAST MEDICAL HISTORY: She has significant past medical history of; 1. Hypertension. 2. Chronic AFib. 3. Insulin-dependent diabetes. 4. Left ventricular dysfunction, echocardiogram shows severe global early hypokinesia, status post defibrillator replacement. 5. Chronic anemia. 6. Thrombocytopenia. ALLERGIES: THE PATIENT IS ALLERGIC TO KIWI, POPPY SEEDS, AND SHELLFISH. MEDICATIONS: At home, as per MAR. PHYSICAL EXAMINATION: GENERAL: The patient is awake and alert, able to communicate. VITAL SIGNS: The patient is afebrile. Pulse 79, respiration 20 and blood pressure 110/62. LUNGS: Bilateral fair airflow. No rhonchi or crackle. HEART: S1 and S2, audible. ABDOMEN: Soft and nontender. No hepatosplenomegaly. NEUROLOGIC: She is awake and alert, able to communicate. LABORATORY DATA: Blood sugar is 193. ASSESSMENT: 1. Abdominal pain, multifactorial status post endoscopy showed esophageal varices. 2. Gastroparesis. 3. Insulin-dependent diabetes. 4. Congestive heart failure. 5. Hypertension. 6. Hyperlipidemia. 7. History of depression. PLAN: We will restart the patient on her usual medication including Coumadin, digoxin, Losartan and atorvastatin. She has been started on nadolol. We will hold off on metoprolol and monitor her PT and INR, monitor her CBC and CMP in a.m. Olvin Dejesus MD
[2018-10-14] MEDS: Pantoprazole 40 mg EC Tab PO SCH (05:39)
[2018-10-14] MEDS: Insulin Lispro (humaLOG) MEDIUM Coverage SC SCH ×4 (06:56→22:25)
[2018-10-14] MEDS: Digoxin 250 mcg (0.25 mg) Tab PO SCH (13:34)
--- NOTE | 2018-10-14 23:15 | PN ---
DATE: 10/14/2018 SUBJECTIVE: The patient is 73 years old. Seen and examined. Doing very well. Eating and tolerating. Ambulating with a walker. No more chest pain. No shortness of breath. No abdominal pain. PHYSICAL EXAMINATION: VITAL SIGNS: She is afebrile, pulse 70, respirations 20, blood pressure 110/62. LUNGS: Bilateral fair airflow. No rhonchi or crackle. HEART: S1 and S2 audible. ABDOMEN: Soft, obese, nontender. No rebound. No guarding. NEUROLOGIC: The patient is awake and alert, able to communicate, ambulatory. LABORATORY EXAMINATION: Blood sugar is 144. ASSESSMENT AND PLAN: 1. Abdominal pain with diarrhea, probably gastroenteritis, status post endoscopy, showing esophageal varices. 2. Biventricular failure, status post defibrillator since the patient has perioperative cardiac arrest in the remote past when she had cholecystectomy done. 3. Hypertension. 4. Chronic atrial fibrillation, on anticoagulant. 5. Insulin-dependent diabetes. 6. Ventral hernia. 7. She has cirrhotic ascites. 8. Thrombocytopenia. 9. Cardiac cirrhosis. PLAN: We will continue the patient on current medication. She is also being treated for SVT. Currently, she is on Cipro and Flagyl. She is responding very well to that. Currently, the patient is on p.o. antibiotics. changed to nadolol. She is on Coumadin. We will follow up PT, INR, CBC and electrolytes. Olvin Dejesus MD
--- NOTE | 2018-10-14 23:24 | CON ---
DATE OF CONSULTATION: 10/14/2018 REFERRING PHYSICIAN: Olvin Dejesus MD REASON FOR CONSULTATION: I have been asked to see this 73-year-old female with multiple comorbidities including history of arrhythmia, status post permanent pacemaker, AICD, atrial fibrillation, cirrhosis of the liver, who was admitted on 10/07/2018 with nausea and vomiting. CT scan of the abdomen and pelvis was performed, which revealed dilated loops of small bowel suggestive of small bowel obstruction. There was steatosis in the liver. There is also trace pleural effusion as well as small volume intra-abdominal and pelvic ascites. Recent endoscopy showed grade 1 esophageal varices as well as portal hypertensive gastropathy. The patient denies any alcohol use. Her hepatitis serology has been negative. She currently denies any further vomiting or abdominal pain. She denies shortness of breath. She is tolerating solid foods. PAST MEDICAL HISTORY: Again is notable for cardiac arrhythmia, diabetes mellitus, atrial fibrillation, cirrhosis, cardiomyopathy, thrombocytopenia, chronic AFib. PAST SURGICAL HISTORY: Notable for cholecystectomy. FAMILY HISTORY: Unremarkable. SOCIAL HISTORY: She denies cigarette smoking or alcohol use. MEDICATIONS AT HOME: Tramadol, metformin, warfarin, simvastatin, metoprolol, Cozaar, insulin, Levemir, fluoxetine, Aricept, Lanoxin, Lipitor, Ecotrin, and acetaminophen. PHYSICAL EXAMINATION: GENERAL: Elderly female, lying in bed, in no acute distress. VITAL SIGNS: Temperature of 97.7, blood pressure 110/62, heart rate 78. HEENT: Reveals sclerae to be white. Conjunctivae pink. NECK: Supple. CHEST: Distant breath sounds. She has an AICD permanent pacemaker in her left subclavian area. HEART: Irregularly irregular rate. ABDOMEN: Flabby, soft, well-healed right vertical scar. EXTREMITIES: Trace pedal edema with chronic stasis changes over her pretibial area. LABORATORY DATA: White blood cell count 3.8, hemoglobin 9, platelet count 60,000. Chemistries reveal from 10/11/2018 albumin 2.7, blood sugar 115. IMPRESSION: A 73-year-old female with multiple comorbidities including cirrhosis of the liver, most likely cardiac cirrhosis, history of cardiomyopathy, atrial fibrillation, cardiac arrhythmia, diabetes mellitus, chronic anemia. I have reviewed her previous hospitalizations as well as the endoscopy report by Dr. Guevara, which clearly shows grade 1 esophageal varices and portal hypertensive gastropathy. Her hepatitis serology has been negative. RECOMMENDATIONS: Would continue treatment for cirrhosis of the liver to include Xifaxan 550 b.i.d. for prevention of hepatic encephalopathy. The patient does report periods of confusion in the past. I would also check titers for AXEL, hemochromatosis genetic testing as well as alpha-1 antitrypsin levels to rule out other causes of cirrhosis of the liver. Would also continue nadolol 20 mg once a day as long as her blood pressure and heart rate can be sustained on the low-dose nadolol for primary prevention of bleeding from esophageal varices. I agree with Dr. Guevara's diagnosis, workup and treatment thus far. No further recommendations are made at this time. Jonas Curiel MD
[2018-10-15] MEDS: Pantoprazole 40 mg EC Tab PO SCH (05:05)
[2018-10-15] MEDS: Insulin Lispro (humaLOG) MEDIUM Coverage SC SCH ×4 (07:06→22:16)
[2018-10-15 07:38] LABS: BASO # 0.01 K/mm3 (0.0-2.0); BASO % 0.3 % (0.0-3.0); EOS # 0.1 (0.0-0.7); EOS % 2.6 % (1.5-5.0); HEMOGLOBIN 8.3 g/dL (12.0-16.0); INR 1.73; LYMPH # 0.8 (1.2-3.4); LYMPH % 21.2 % (22.0-35.0); MEAN CELL VOLUME 80.9 fl (80.0-105.0); MEAN CORPUSCULAR HEMOGLOBIN 25.5 pg (25.0-35.0); MEAN CORPUSCULAR HGB CONC 31.6 g/dl (31.0-37.0); MEAN PLATELET VOLUME 10.5 fl (7.0-11.0); MONO # 0.5 (0.1-0.6); PROTHROMBIN TIME 19.6 SECONDS (9.4-12.5); RBC 3.25 10^6/uL (3.5-6.1); RED CELL DISTRIBUTION WIDTH 17.7 % (11.5-14.5); WHITE BLOOD COUNT 3.9 10^3/uL (4.5-11.0)
[2018-10-15 08:05] LABS: ALB/GLOB RATIO 0.8 (1.1-1.8); ALBUMIN 2.5 g/dL (3.0-4.8); ALT/SGPT 24 U/L (7-56); AST/SGOT 25 U/L (14-36); BLOOD UREA NITROGEN 19 mg/dL (7-21); CALCIUM 8.9 mg/dL (8.4-10.5); GFR NON-AFRICAN AMERICAN > 60
--- NOTE | 2018-10-15 10:18 | PN ---
DATE: 10/15/2018 SUBJECTIVE: The patient is seen resting comfortably in bed in the Transitional Care Unit. Her abdominal pain has subsided. She has had no chest pain or exertional dyspnea. MEDICATIONS: Her current medications include nadolol 20 mg daily, warfarin, Cozaar 100 mg daily, Ecotrin once daily, lactulose, Flagyl, digoxin 0.25 mg daily, atorvastatin 10 mg daily, Protonix, Prozac 10 mg daily. OBJECTIVE: GENERAL: She is a middle-aged woman, who appears comfortable at rest. VITAL SIGNS: Blood pressure is 110/60 with a pulse of 76, respirations are 14. She is afebrile. HEENT: No JVD. CHEST: Few scattered rhonchi. HEART: PMI displaced laterally with soft tones noted. ABDOMEN: Soft, protuberant. Bowel sounds present. EXTREMITIES: No edema. DIAGNOSTIC DATA: No blood work pending. IMPRESSION: 1. Abdominal pain appears improved, felt secondary to partial small-bowel obstruction. 2. Congestive heart failure, chronic, systolic, compensated at the present time. 3. History of prior cardiac arrest, status post implantable cardioverter-defibrillator implant. Recent interrogation revealed normal function and battery life of greater than 2 years. 4. Chronic atrial fibrillation. 5. Liver cirrhosis felt to be secondary to congestive cardiomyopathy. Additional testing pending. 6. Thrombocytopenia. 7. History of diabetes. RECOMMENDATIONS: Her current medications can continue for now, although her digoxin will be reduced to 0.125 mg daily given her age. Continued conservative cardiac management is advised. Nadolol dose can be increased as tolerated. Outpatient ICD followup and cardiology followup will be provided. Further recommendations will be made based upon her clinical course. I will continue to follow along as needed. Farhan Martinez MD
[2018-10-15] MEDS: Digoxin 125 mcg (0.125 mg) Tab PO SCH (14:55)
--- NOTE | 2018-10-15 16:47 | PN ---
DATE: 10/15/2018 SUBJECTIVE: The patient has no complaints of any chest pain. No shortness of breath. No headaches or dizziness. PHYSICAL EXAMINATION VITAL SIGNS: Temperature is 97.7, pulse is 80, blood pressure is 98/59, respirations are 14. GENERAL: The patient is lying in bed, flat, comfortable. HEENT: No oral lesion. Anicteric sclerae. Moist mucosa. NECK: No JVD, adenopathy, or thyromegaly. CARDIOVASCULAR: S1 and S2, regular. No murmurs, rubs, or gallops. LUNGS: Clear to auscultation bilaterally. No wheeze, rales, or rhonchi. ABDOMEN: Bowel sounds are positive, soft, nontender and nondistended. EXTREMITIES: No cyanosis, clubbing or edema. LABORATORY DATA: White count of 3.9, hemoglobin 8.3, platelet count is 75. Creatinine is 0.7. ASSESSMENT: 1. Esophageal varices. 2. Hypertension. 3. Diabetes type 2. 4. Atrial fibrillation, on anticoagulation. 5. Congestive heart failure secondary to systolic dysfunction, stable. 6. Thrombocytopenia. 7. Diabetes type 2. 8. Cirrhosis. 9. Ascites. PLAN: The patient is currently on nadolol for her cirrhosis. She is on Coumadin. Her INR is 1.7 today. She is on aspirin daily. She is receiving Lipitor for dyslipidemia. She is on morphine for pain. The patient is on Protonix daily. She is on tramadol for pain. Her Coumadin was restarted, so we will continue to follow her PT and INR. I will repeat the PT and INR for tomorrow. Eugene Romero MD
[2018-10-16] MEDS: Pantoprazole 40 mg EC Tab PO SCH (05:08)
[2018-10-16] MEDS: Insulin Lispro (humaLOG) MEDIUM Coverage SC SCH ×4 (06:46→23:00)
[2018-10-16 07:27] LABS: INR 2.01; PROTHROMBIN TIME 22.7 SECONDS (9.4-12.5)
[2018-10-16] MEDS: Digoxin 125 mcg (0.125 mg) Tab PO SCH (15:00)
[2018-10-17] MEDS: Pantoprazole 40 mg EC Tab PO SCH (05:16)
[2018-10-17] MEDS: Insulin Lispro (humaLOG) MEDIUM Coverage SC SCH ×4 (06:46→21:56)
--- NOTE | 2018-10-17 08:43 | PN ---
DATE: 10/16/2018 SUBJECTIVE: The patient is 73-year-old. Seen and examined. Doing very well. She says she feels a lot better. No nausea, no vomiting, no diarrhea. input noted and appreciated. PHYSICAL EXAMINATION: VITAL SIGNS: She is afebrile. Pulse 67, respirations 16, and blood pressure 157/70. LUNGS: Bilateral fair airflow. No rhonchi or crackles. HEART: S1 and S2 audible. ABDOMEN: Soft and nontender. No rebound. No guarding. NEUROLOGICAL: The patient is awake, alert and able to communicate. LABORATORY DATA: PT is 22.7, INR 2.01. Chemistry: Blood sugar is 180. ASSESSMENT: 1. Gastroenteritis causing distal small bowel thickening. 2. Cardiac cirrhosis. 3. Thrombocytopenia. 4. Esophageal varices. 5. Probably hepatic encephalopathy. 6. Chronic obstructive pulmonary disease. 7. Coronary artery disease. 8. Chronic atrial fibrillation. 9. Insulin-dependent diabetes. PLAN: We will continue the patient on current medication. She is on nadolol, she is on warfarin, she is on losartan, digoxin, aspirin, and lactulose daily at night. She is on metronidazole and Protonix. Continue . Follow up this patient in a.m. and we will follow PT/INR. Olvin Dejesus MD
--- NOTE | 2018-10-17 08:53 | CP.PCM.PCO ---
Physician Communication Note - Physician Communication Note Physician Communication Note: Ambulating/moving bowels/progressing well
[2018-10-17] MEDS: Digoxin 125 mcg (0.125 mg) Tab PO SCH (14:44)
[2018-10-17] MEDS ORDERED: Hydrocortisone 2.5% Rectal Cream(30 gm) PR PRN (15:32)
--- NOTE | 2018-10-17 18:56 | PN ---
DATE: 10/17/2018 SUBJECTIVE: The patient is 73 years old, seen and examined, seems to be comfortable. No nausea, vomiting. No diarrhea. PHYSICAL EXAMINATION: VITAL SIGNS: The patient is afebrile. Pulse 60, respirations is 16, blood pressure 119/60. LUNGS: Bilateral fair air flow. No rhonchi or crackle. HEART: S1, S2 audible. ABDOMEN: Soft, nontender. No rebound. No guarding. NEUROLOGIC: The patient is awake and alert, able to communicate, ambulatory, walks with a walker. LABORATORY DATA: PT 22.7. INR 2.01. Chemistry, blood sugar is 132. ASSESSMENT: 1. Status post gastroenteritis. 2. Status post endoscopy, found to have esophageal varices. 3. Insulin-dependent diabetes. 4. Congestive heart failure. 5. Cardiomyopathy. 6. Chronic atrial fibrillation. PLAN: We will continue the patient on nadolol. She is on Coumadin. We will order PT/INR in the morning. Continue losartan, digoxin, aspirin, metronidazole, and atorvastatin. We will continue her on Protonix. Tramadol as needed. She is requesting for some kind of cream for her hemorrhoids are itching and burning. We will start her on Anusol HC. Olvin Dejesus MD
[2018-10-18] MEDS: Pantoprazole 40 mg EC Tab PO SCH (05:28)
[2018-10-18] MEDS: Insulin Lispro (humaLOG) MEDIUM Coverage SC SCH ×4 (06:34→22:14)
[2018-10-18] MEDS: Digoxin 125 mcg (0.125 mg) Tab PO SCH (17:25)
--- NOTE | 2018-10-18 17:32 | PN ---
DATE: 10/18/2018 SUBJECTIVE: The patient is 73-year-old, seen and examined. She states she feels a lot better, cream did help her itching that she has in hemorrhoid. Participating in therapy. PHYSICAL EXAMINATION: VITAL SIGNS: She is afebrile. Pulse 60, respiration 20 and blood pressure 119/60. LUNGS: Bilateral fair airflow. No rhonchi or crackle. HEART: S1 and S2, audible. ABDOMEN: Soft and nontender. No rebound. No guarding. NEUROLOGIC: The patient is awake, alert and able to communicate. EXTREMITIES: Bilateral leg no edema. LABORATORY DATA: There is no new lab available except her blood sugar this morning was 110, afternoon is 130. ASSESSMENT: 1. Probably gastroenteritis, causing distal ileal thickening. 2. Esophageal varices, upon endoscopy. 3. Cardiac cirrhosis. 4. Thrombocytopenia. 5. Coronary artery disease. 6. Chronic atrial fibrillation on Coumadin. 7. Pulmonary hypertension. PLAN: We will continue the patient on current medication. Continue nadolol. Spoke to Dr. Martinez, he is okay to discontinue metoprolol and start her on Cozaar and we will continue Coumadin. We will followup PT/INR in a.m. Olvin Dejesus MD
[2018-10-19] MEDS: Pantoprazole 40 mg EC Tab PO SCH (05:55)
[2018-10-19] MEDS: Insulin Lispro (humaLOG) MEDIUM Coverage SC SCH ×4 (06:45→22:45)
[2018-10-19 07:23] LABS: PROTHROMBIN TIME 40.6 SECONDS (9.4-12.5)
[2018-10-19 07:24] LABS: INR 3.59
[2018-10-19] MEDS: Digoxin 125 mcg (0.125 mg) Tab PO SCH (13:25)
--- NOTE | 2018-10-19 16:18 | PN ---
DATE: 10/19/2018 SUBJECTIVE: The patient is 73 years old, seen and examined, doing very well in therapy, eating and tolerating. Awake, alert, oriented, and communicative. PHYSICAL EXAMINATION: VITAL SIGNS: She is afebrile. Pulse 88, respirations 16, and blood pressure 112/62. LUNGS: Bilateral fair airflow. No rhonchi or crackles. HEART: S1 and S2 audible. Irregular rate control. ABDOMEN: Soft and nontender. No rebound. No guarding. NEUROLOGIC: The patient is awake and alert; able to communicate. LABORATORY DATA: Blood sugar is 122. ASSESSMENT: 1. Status post gastroenteritis. 2. Status post upper endoscopy and was found to have esophageal varices. 3. Cardiac cirrhosis. 4. Chronic atrial fibrillation. 5. Cardiomyopathy. 6. Coronary artery disease. 7. Insulin-dependent diabetes. 8. Hypertension. PLAN: We will hold her Coumadin today. We will continue nadolol, continue losartan and digoxin. She is on metronidazole and continue on tramadol. She is on Xifaxan. Possible discharge plan in a.. Olvin Dejesus MD
--- NOTE | 2018-10-20 01:58 | PN ---
DATE: 10/19/2018 SUBJECTIVE: The patient is seen sitting in chair on the transitional care unit. She is feeling well. Her stamina is improving. She has had no further abdominal pain. She denies any exertional dyspnea at present. CURRENT MEDICATIONS: Include Corgard 20 mg daily, warfarin, Cozaar 100 mg daily, digoxin 0.125 mg daily, Ecotrin once daily, lactulose, Flagyl, Lipitor 10 mg daily, morphine, Protonix, Prozac and rifaximin 550 mg b.i.d. OBJECTIVE: GENERAL: She is a middle-aged woman who is comfortable at the present time. VITAL SIGNS: Her blood pressure is 112/64, the pulse of 86 and regular, respirations are 16. She is afebrile. HEENT: No JVD. CHEST: A few scattered rhonchi heard. HEART: PMI displaced laterally with soft tones noted. ABDOMEN: Soft, not distended with normoactive bowel sounds. EXTREMITIES: No edema. DIAGNOSTIC DATA: INR is 3.59. IMPRESSION: 1. Chronic congestive heart failure, systolic, compensated at the present time. 2. History of prior cardiac arrest, status post implantable cardioverter-defibrillator implant. 3. Chronic atrial fibrillation. 4. Hepatic cirrhosis possibly secondary to congestive cardiomyopathy. 5. Chronic thrombocytopenia. 6. History of diabetes. 7. Elevated international normalized ratio. RECOMMENDATIONS: Her current medications will continue for now. Given her cirrhosis and LV dysfunction, nadolol is a reasonable choice. If her blood pressure allows it, this can be increased to 40 mg daily. Outpatient cardiac followup will be arranged and she has been given the name of Dr. Hammonds for outpatient local followup with respect to her defibrillator. I will be happy to see as needed. Farhan Martinez MD
[2018-10-20] MEDS: Pantoprazole 40 mg EC Tab PO SCH (06:02)
[2018-10-20] MEDS: Insulin Lispro (humaLOG) MEDIUM Coverage SC SCH ×3 (06:38→17:24)
[2018-10-20 07:23] LABS: PROTHROMBIN TIME 48.3 SECONDS (9.4-12.5)
[2018-10-20 07:25] LABS: INR 4.27
[2018-10-20 09:49] VITALS: BP 123/61
[2018-10-20 11:31] VITALS: PULSE 89; RESP 18; TEMP 97.6; O2SAT 99
[2018-10-20] MEDS: Digoxin 125 mcg (0.125 mg) Tab PO SCH (13:14)
[2018-10-20 13:15] VITALS: PULSE 89
--- NOTE | 2018-10-21 01:19 | DS ---
HISTORY OF PRESENT ILLNESS: The patient is a 73-year-old, patient of Dr. Sullivan, came to emergency room because of abdominal pain, intractable nausea, vomiting, diarrhea, and confusion. CT scan of the abdomen was done that shows thickening of distal ileum, so questionable partial small bowel obstruction and ID consult. The patient was kept n.p.o., was given IV fluid and IV antibiotic. GI consult by Dr. Guevara and surgical consult by Dr. Benedict was called. The patient was initially treated conservatively and ended up having endoscopy that shows cardiac cirrhosis, esophageal varices, and gastroparesis. So, the patient was started on cefixime, nadolol, and lactulose that seemed to have improved her symptoms. There was no surgical intervention indicated or needed. So, the patient was deconditioned. She was transferred to TCU for rehab, did very well, eating and tolerating. No nausea, vomiting, or diarrhea. PHYSICAL EXAMINATION: VITAL SIGNS: The patient is afebrile, pulse , respirations 18, and blood pressure 123/61. LUNGS: Bilateral fair airflow, decreased at bases. HEART: S1 and S2 audible. ABDOMEN: Soft, obese, and nontender. No rebound. No guarding. NEUROLOGIC: The patient is awake and alert, able to communicate and ambulatory. LABORATORY DATA: Her PT 48.3 and INR 4.27. Chemistries; blood sugar is 173. ASSESSMENT: 1. Probably gastroenteritis, questionable partial small bowel obstruction that has completely resolved. 2. Gastroparesis. 3. Esophageal varices. 4. Cardiac cirrhosis. 5. Hepatic encephalopathy. 6. Insulin-dependent diabetes. 7. Hypertension. 8. Hyperlipidemia. PLAN: The patient is being discharged home. She will resume all her medications as prior to admission that include tramadol as needed, metformin 500 twice a day, Coumadin 5 mg daily, simvastatin 20 mg daily, omeprazole 40 mg daily, and losartan 100 daily. She will resume her insulin. She will resume Prozac, Aricept, Lanoxin, Lipitor, and she is advised to start medications that include lactulose 10 g daily. She is advised to have at least three bowel movements, if it is more than that, she can skip a day. She was told this is the only treatment for her cirrhosis liver to keep her away from encephalopathy and she was also started on nadolol and she was advised to stop taking metoprolol that I already have gotten it approved by Dr. Martinez. He is okay to give nadolol instead of beta-adelfo and also she has been started on cefixime. She will follow up with Dr. Sullivan as outpatient. They will arrange for colonoscopy for later date. Olvin Dejesus MD
== END 2018-10-20 20:50 | disposition home or self-care (01) | DRG 392 ==
LOC: TRCU 18:51
PROVIDERS: ADMIT Internal Medicine; ATTEND Internal Medicine
PROC: F07Z9FZ Gait Training/Functional Ambulation Treatment using Assistive, Adaptive, Supportive or Protective Equipment (ICD-10-PCS; principal; 2018-10-13)
PROC: F08Z4ZZ Home Management Treatment (ICD-10-PCS; 2018-10-13)
DX: K52.9 Noninfective gastroenteritis and colitis, unspecified (principal); I50.22 Chronic systolic (congestive) heart failure; I42.0 Dilated cardiomyopathy; I85.00 Esophageal varices without bleeding; R18.8 Other ascites; K76.6 Portal hypertension; I11.0 Hypertensive heart disease with heart failure; I48.2 Chronic atrial fibrillation; I25.10 Atherosclerotic heart disease of native coronary artery without angina pectoris; I27.20 Pulmonary hypertension, unspecified; E11.43 Type 2 diabetes mellitus with diabetic autonomic (poly)neuropathy; K31.84 Gastroparesis; K74.69 Other cirrhosis of liver; D69.6 Thrombocytopenia, unspecified; J44.9 Chronic obstructive pulmonary disease, unspecified; K72.90 Hepatic failure, unspecified without coma; K64.9 Unspecified hemorrhoids; E78.5 Hyperlipidemia, unspecified; Z79.01 Long term (current) use of anticoagulants; Z79.4 Long term (current) use of insulin; Z95.810 Presence of automatic (implantable) cardiac defibrillator